=== PATIENT | male | born 1945 | race African-American/Black ===

== ENCOUNTER 2020-05-28 09:36 | Outpatient (REF) | payer MEDICARE, OTHER, SELFPAY | END 2020-05-28 09:37 | disposition home or self-care (01) | LOC: HO.BBR 09:36 | PROVIDERS: Visit Provider Internal Medicine | DX: D75.1 Secondary polycythemia (principal) | CPT/HCPCS: 36415; 85018 ==

== ENCOUNTER 2020-05-29 08:53 | Outpatient (REF) | payer MEDICARE, OTHER, SELFPAY | END 2020-05-29 08:54 | disposition home or self-care (01) | LOC: HO.BBR 08:53 | PROVIDERS: Visit Provider Internal Medicine | DX: D75.1 Secondary polycythemia (principal) | CPT/HCPCS: 85014; 85018; 99195 ==

== ENCOUNTER 2020-08-20 08:52 | Outpatient (REF) | payer MEDICARE, OTHER, SELFPAY | END 2020-08-20 08:53 | disposition home or self-care (01) | LOC: HO.BBR 08:52 | PROVIDERS: Visit Provider Internal Medicine | DX: D45 Polycythemia vera (principal) | CPT/HCPCS: 36415; 85018; 99195 ==

== ENCOUNTER 2020-11-19 08:48 | Outpatient (REF) | payer MEDICARE, OTHER, SELFPAY | END 2020-11-19 08:49 | disposition home or self-care (01) | LOC: HO.BBR 08:48 | PROVIDERS: PCP Internal Medicine; Visit Provider Internal Medicine | DX: D45 Polycythemia vera (principal) | CPT/HCPCS: 36415; 85018; 99195 ==

== ENCOUNTER 2021-02-21 11:28 | Outpatient (REF) | payer MEDICARE, OTHER, SELFPAY | END 2021-02-21 11:29 | disposition home or self-care (01) | LOC: HO.BBR 11:28 | PROVIDERS: Visit Provider Internal Medicine | DX: D45 Polycythemia vera (principal) | CPT/HCPCS: 85018; 99195 ==

== ENCOUNTER 2021-05-27 08:34 | Outpatient (REF) | payer MEDICARE, OTHER, SELFPAY | END 2021-05-27 08:35 | disposition home or self-care (01) | LOC: HO.BBR 08:34 | PROVIDERS: Visit Provider Internal Medicine | DX: D45 Polycythemia vera (principal) | CPT/HCPCS: 85014; 85018; 99195 ==

== ENCOUNTER 2021-11-25 08:45 | Outpatient (REF) | payer MEDICARE, OTHER, SELFPAY | END 2021-11-25 08:46 | disposition home or self-care (01) | LOC: HO.BBR 08:45 | PROVIDERS: Visit Provider Internal Medicine | DX: D45 Polycythemia vera (principal) | CPT/HCPCS: 85018; 99195 ==

== ENCOUNTER 2022-05-28 13:34 | Outpatient (REF) | payer MEDICARE, OTHER, SELFPAY | END 2022-05-28 13:35 | disposition home or self-care (01) | LOC: HO.BBR 13:34 | PROVIDERS: Visit Provider Internal Medicine | DX: D45 Polycythemia vera (principal) | CPT/HCPCS: 85018; 99195 ==

== ENCOUNTER 2022-09-07 08:51 | Outpatient (REF) | payer MEDICARE, OTHER, SELFPAY | END 2022-09-07 08:52 | disposition home or self-care (01) | LOC: HO.BBR 08:51 | PROVIDERS: PCP Family Medicine; Visit Provider Internal Medicine | DX: D75.1 Secondary polycythemia (principal) | CPT/HCPCS: 85018; 99195 ==

== ENCOUNTER 2022-12-08 09:43 | Outpatient (REF) | payer MEDICARE, OTHER, SELFPAY | END 2022-12-08 09:44 | disposition home or self-care (01) | LOC: HO.BBR 09:43 | PROVIDERS: Visit Provider Internal Medicine | DX: D45 Polycythemia vera (principal) | CPT/HCPCS: 85014; 85018; 99195 ==

== ENCOUNTER 2023-02-24 09:57 | Outpatient (AMB) | payer MEDICARE, OTHER, SELFPAY ==
--- NOTE | 2023-02-24 12:39 | AM.OFFWIN_ITS ---
Intake Vital Signs 02/24/23 12:48 Weight 212 lb BP 130/78 Blood Pressure Location Rt brachial Position Sitting Pulse 82 Pulse Source Pulse Oximeter Temp 100.3 F Temp Source Temporal Artery Scan Pulse Oximetry (%) 96 Intake Visit Reasons: 7EP, cough, congestion [phone] Intake Note: pt is here for c/o cough and congestion Patient Tobacco Use Status: Never used Tobacco Allergies No Known Allergies Allergy (Verified 02/24/23 12:40) Do you need a note to return to daycare/school/sports/work: Yes HPI 7EP, cough, congestion [phone] HPI Details 78 year old male patient presents today with a 6 day history of persistent dry cough, sore throat, nasal congestion, body aches, chills. Denies any known fever. Denies known exposure to sick contacts, however he was just traveling to [place] for his birthday. Denies any GI symptoms. Denies shortness of breath. [facility] Social History Patient Tobacco Use Status: Never used Tobacco Review of Systems Const All systems reviewed & are unremarkable except as noted in HPI and below Physical Exam Const General: cooperative and no acute distress HEENT Head: Yes normal to inspection Ears: hearing grossly normal bilaterally General nose exam: Normal external nose present and Nasal discharge present mucoid Face and sinus: Yes normal facial exam Mouth: Normal oral and palatal mucosa present and moist mucous membranes abnormal Throat: Yes posterior oropharynx abnormal (mild erythema) Neck Neck: Yes no lymphadenopathy Resp Effort & Inspection: normal respiratory effort and Actively coughing Quality: dry Auscultation: clear to auscultation bilaterally Cardio Jugular venous distension: no JVD Palpation: normal PMI Rate: regular rate Rhythm: regular rhythm Skin General skin exam: no rashes or lesions noted Extrem General: Yes capillary refill normal and Yes no clubbing, cyanosis or edema Psych Appearance: grossly normal Mental Status: mental status grossly normal Speech and movement: Normal speech and movement present Assessment & Plan Assessment & Plan (1) Body aches: Code(s): R52 - Pain, unspecified Plan: Symptoms consistent with viral illness. Covid/Flu/RSV swab obtained. He will be notified of results once these are available. We discussed conservative measures for his symptoms including Tylenol, rest, hydration, otc cold/flu products. He does not wish to start any Prednisone for his cough. I will start him on Benzonatate, which we reviewed indications for and use of. If he does not improve with time and conservative measures, or if he develops any worsening symptoms, he should return to the clinic for further evaluation. He verbalizes understanding and agrees to plan. (2) Cough in adult: Code(s): R05.9 - Cough, unspecified Orders: Orders SARS-CoV2/FLU/RSV Today R05.9 - Cough, unspecified, R52 - Pain, unspecified Medications: New benzonatate 100 mg PO BID 7 days PRN 14 caps 0RF cough R05.9 - Cough, unspecified Coding Level of Care Code Est Pt Level 3 (97767) Diagnoses Body aches R52 Cough in adult R05.9
[2023-02-24 12:48] VITALS: BP 130/78; PULSE 82; TEMP 37.9; O2SAT 96
== END 2023-02-24 13:28 | disposition home or self-care (01) ==
PROVIDERS: PCP Family Medicine; Visit Provider Nurse Practitioner Family
DX: R52 Pain, unspecified (principal); R05.9 Cough, unspecified
CPT/HCPCS: 99213

== ENCOUNTER 2023-02-24 13:17 | Outpatient (REF) | payer MEDICARE, OTHER, SELFPAY ==
[2023-02-24 17:43] LABS: Influenza A PCR NEGATIVE (Negative); Influenza B PCR NEGATIVE (Negative); Resp Syncy Virus RNA Qual PCR NEGATIVE (Negative); SARS COV2 PCR INHOUSE NEGATIVE (Negative)
== END 2023-02-24 13:18 | disposition home or self-care (01) ==
LOC: HO.LAB 13:17
PROVIDERS: Visit Provider Nurse Practitioner Family
DX: R52 Pain, unspecified (principal); R05.9 Cough, unspecified; Z20.822 Contact with and (suspected) exposure to COVID-19
CPT/HCPCS: 0241U

== ENCOUNTER 2023-03-10 08:30 | Outpatient (REF) | payer MEDICARE, OTHER, SELFPAY | END 2023-03-10 08:31 | disposition home or self-care (01) | LOC: HO.BBR 08:30 | PROVIDERS: PCP Family Medicine; Visit Provider Internal Medicine | DX: D75.1 Secondary polycythemia (principal) | CPT/HCPCS: 85014; 85018; 99195 ==

== ENCOUNTER 2023-06-10 08:57 | Outpatient (REF) | payer MEDICARE, OTHER, SELFPAY | END 2023-06-10 08:58 | disposition home or self-care (01) | LOC: HO.BBR 08:57 | PROVIDERS: PCP Family Medicine; Visit Provider Internal Medicine | DX: D75.1 Secondary polycythemia (principal) | CPT/HCPCS: 85018; 99195 ==

== ENCOUNTER 2023-07-19 10:02 | Outpatient (AMB) | payer MEDICARE, OTHER, SELFPAY ==
--- NOTE | 2023-07-19 11:01 | MHC.OFFWIV ---
Intake Vital Signs 07/19/23 11:03 Weight 224 lb BP 124/80 Blood Pressure Location Lt brachial Position Sitting Pulse 85 Pulse Source Pulse Oximeter Pulse Oximetry (%) 98 Oxygen Delivery Method Room Air Intake Visit Reasons: EP ?RT ear infection Intake Note: Patient here for possible right ear infection that has been present for about 2 days. Patient Tobacco Use Status: Never used Tobacco Allergies No Known Allergies Allergy (Verified 07/19/23 11:03) Do you need a note to return to daycare/school/sports/work: No HPI HPI Comments History of Present Illness Details presents to [facility] today for sick visit Complaint of right ear pain for last 2 days uses hearing aides bilaterally but does not have them in today due to the discomfort Denies new hearing loss, drainage from ear, ringing in the ear, dizziness, syncope. Patient denies sore throat, cough, fever, vomiting, diarrhea, headache. [facility] Social History Patient Tobacco Use Status: Never used Tobacco Review of Systems Const All systems reviewed & are unremarkable except as noted in HPI and below Physical Exam Vital Signs: Last Vital Signs Pulse 85 07/19/23 11:03 BP 124/80 07/19/23 11:03 Pulse Ox 98 07/19/23 11:03 Oxygen Delivery Method Room Air 07/19/23 11:03 General: awake, alert, oriented. Answers questions appropriately. Fully engaged in examination. Skin: warm, dry, intact HEENT: Normocephalic. Right TM erythematous, cloudy. Left TM normal to visual inspection. Cardiac: External chest normal in appearance. Respiratory: No cough, audible wheezing or stridor. Abdomen: without gross distension. MS: No obvious swelling or deformities. Neurological: Oriented to person, place, time and situation. Thought process intact. Psychiatric: Appropriate mood and affect. Good judgment and insight. Assessment & Plan Assessment & Plan (1) Otitis media: Code(s): H66.90 - Otitis media, unspecified, unspecified ear Plan presented to [facility] today with complaints of right ear pain Augmentin DS BID for 7 days. Drink plenty of fluids, avoid getting anything in the ear, tylenol/motrin as needed. Avoid use of hearing aid until pain resolves All questions and concerns were addressed during the visit, patient agrees with the plan. Follow up with pcp or in walkin for any new or worsening symptoms. Medications: New amoxicillin-pot clavulanate 875-125 mg 1 tab PO BID 14 tabs 0RF Coding Level of Care Code Est Pt Level 3 (19526) Diagnoses Otitis media H66.90
[2023-07-19 11:03] VITALS: BP 124/80; PULSE 85; O2SAT 98
== END 2023-07-19 12:06 | disposition home or self-care (01) ==
PROVIDERS: PCP Family Medicine; Visit Provider Registered Nurse Emergency
DX: H66.90 Otitis media, unspecified, unspecified ear (principal)
CPT/HCPCS: 99213

== ENCOUNTER 2023-12-09 08:58 | Outpatient (REF) | payer MEDICARE, OTHER, SELFPAY | END 2023-12-09 08:59 | disposition home or self-care (01) | LOC: HO.BBR 08:58 | PROVIDERS: PCP Family Medicine; Visit Provider Internal Medicine | DX: D75.1 Secondary polycythemia (principal) | CPT/HCPCS: 85018; 99195 ==

== ENCOUNTER 2024-01-01 12:41 | Outpatient (AMB) | payer MEDICARE, OTHER, SELFPAY ==
[2024-01-01 12:45] VITALS: BP 122/84; PULSE 64; O2SAT 99; BMI 34.1
--- NOTE | 2024-01-01 12:45 | AM.OFFWIN_ITS ---
Intake Vital Signs 01/01/24 12:45 Height 5 ft 8 in Weight 224 lb BMI 34.1 BP 122/84 Blood Pressure Location Rt brachial Position Sitting Pulse 64 Pulse Source Pulse Oximeter Pulse Oximetry (%) 99 Intake Visit Reasons: EP back pain Patient Tobacco Use Status: Never used Tobacco Allergies No Known Allergies Allergy (Verified 07/19/23 11:03) Do you need a note to return to daycare/school/sports/work: No HPI HPI Comments History of Present Illness Details 78-year-old male who presents for right- sided low back pain. Patient presents for a little while now now radiating down to the knee worse in the morning worse with movement loosens up over time. No fevers chills weight loss malignancy, IVDU PFSH Social History Patient Tobacco Use Status: Never used Tobacco Physical Exam Vital Signs: Last Vital Signs Pulse 64 01/01/24 12:45 BP 122/84 01/01/24 12:45 Pulse Ox 99 01/01/24 12:45 BMI result Body Mass Index 34.1 Const General: cooperative, healthy appearing, no acute distress and alert Orientation/consciousness: patient oriented x3 Limitations: no limitations HEENT Head: Yes normal to inspection Ears: hearing grossly normal bilaterally General nose exam: Normal external nose present Resp Effort & Inspection: normal respiratory effort and able to speak in complete sentences Cardio Rate: regular rate Back/Spine/Pelvis Other: No midline tenderness to palpation Skin General skin exam: no rashes or lesions noted Neuro General: patient oriented x3 Extrem General: Yes normal to inspection Assessment & Plan Assessment & Plan (1) Low Back Pain: Code(s): M54.50 - Low back pain, unspecified Qualifiers: Chronicity: acute Back pain laterality: right Sciatica presence: unspecified whether sciatica present Qualified Code(s): M54.50 - Low back pain, unspecified Plan: Suspect musculoskeletal low back pain. Will recommend Tylenol, diclofenac gel, lidocaine patches and physical the Orders: Orders PT Evaluation and Treatment Today M54.50 - Low back pain, unspecified Medications: New diclofenac sodium 1% (Arthritis Pain (diclofenac)) apply to single knee, ankle, foot; for foot includes sole/toes/top of foot 4 grams topical QID 100 grams 0RF lidocaine 5% leave on most painful area for up to 12 hrs 1 patch topical DAILY 15 ea 0RF Coding Level of Care Code Est Pt Level 3 (35091) Diagnoses Acute right-sided low back pain, unspecified whether sciatica present M54.50 Chronicity: acute Back pain laterality: right Sciatica presence: unspecified whether sciatica present
== END 2024-01-01 13:20 | disposition home or self-care (01) ==
PROVIDERS: PCP Family Medicine; Visit Provider Physician Assistant
DX: M54.50 Low back pain, unspecified (principal)
CPT/HCPCS: 99213

== ENCOUNTER 2024-06-12 09:49 | Outpatient (REF) | payer MEDICARE, OTHER, SELFPAY ==
--- OUTSIDE RECORDS SUMMARY | 2024-06-12 10:21 | XMS_ITS | Clinical Summary ---
Author Organization [facility] Address [address] [place] [address] Care Team Providers Care Warehouse Receiver Name Role Phone Astrid Reeder MD Primary Care Prov ider Allergies No known active allergies Medications Medication Sig Dispensed Refills Start Date End Date Status aspirin EC 81 MG tablet Take 1 tablet (81 mg total) by mouth daily. 0 Active Loratadine (CLARITIN PO) Take by mouth. 0 Active Multiple Vitamin (MULTI-VITAMIN DAILY PO) Take by mouth. 0 Active vitamin D3 (VITAMIN D3) 25 MCG (1000 UT) tablet Take 1 tablet (1,000 Units total) by mouth daily. 0 Active sacubitril-valsartan (ENTRESTO) 24-26 MG per tablet Take 1 tablet by mouth 2 (two) times a day. 0 Active Umeclidinium-Vilantero l (ANORO ELLIPTA) 62.5-25 MCG/INH AEPB Inhale into the lungs. 0 Active simvastatin (ZOCOR) tablet 20 mg Take 1 tablet (20 mg total) by mouth every night at bedtime. 0 Active allopurinol (ZYLOPRIM) 300 MG tablet Take 1 tablet (300 mg total) by mouth daily. 0 Active insulin glargine (LANTUS) injection 100 units/mL Inject under the skin every night at bedtime. 0 Active carvedilol (COREG) 6.25 MG tablet Take by mouth 2 (two) times a day with meals. 0 Active bumetanide (BUMEX) 0.5 MG tablet Take 1 tablet (0.5 mg total) by mouth daily. 0 Active metFORMIN (GLUCOPHAGE) tablet 500 mg Take 1 tablet (500 mg total) by mouth 2 (two) times a day with meals. 0 Active Empagliflozin (JARDIANCE) 25 MG TABS Take by mouth. 0 Active apixaban (ELIQUIS) 5 MG TABS tablet Take by mouth every 12 (twelve) hours. 0 Active Active Problems No known active problems Social History Tobacco Use Types Packs/Day Years Used Date Smoking Tobacco: Former Smokeless Tobacco: Never Alcohol Use Standard Drinks/Week Comments Yes 0 (1 standard drink = 0.6 oz pur e alcohol) occasionally Sex and Gender Information Value Date Recorded Sex Assigned at Not on file Gender Identity Not on file Sexual Orientation Not on file Job Start Date Occupation Industry Not on file Not on file Not on file Last Filed Vital Signs Vital Sign Reading Time Taken Comments Blood Pressure 128/71 08/16/2023 9:39 AM EDT Pulse 99 08/16/2023 9:39 AM EDT Temperature 36.3 ??C (97.3 ??F) 08/16/2023 9:39 AM ED T Respiratory Rate - - Oxygen Saturation 100% 08/16/2023 9:39 AM EDT Inhaled Oxygen Concentration - - Weight 100.7 kg (222 lb) 08/16/2023 9:39 AM EDT Height 172.7 cm (5' 8 ) 08/16/2023 9:39 AM EDT Body Mass Index 33.75 08/16/2023 9:39 AM EDT Plan of Treatment Health Maintenance Due Date Last Done Comments Hepatitis C Screening 1945 COVID-19 Vaccine (#1) 02[birth year]23/1950 Depression Screening 1959 Preventative Health Evaluation 1965 Fall Risk Assessment 02/23/2012 RSV Adult > 60+ Yrs or (1 - 1-dose 75+ series) 2022 Influenza Vaccine (#1) 2024 9, 01/24/2018, 03/20/2017, Additional history exists DTap / Tdap / Td (5 - Td or Tdap) 02/10/2031 02/10/2021, 02/24/2010, 02/24/2010, Additional history exists Shingrix-Zoster Vaccine Completed 04/05/2018, 01/24 Pneumococcal Vaccine Completed 02/17/2019, 03/20/2017, 01/21/2016, Additional history exists Hepatitis B Vaccines Aged Out No long er eligible based on patient's age to complete this topic RSV Ped < 20 months Aged Out No longe r eligible based on patient's age to complete this topic Care Teams Warehouse Receiver Relationship Specialty Start Date End Date Astrid Reeder MD [address] [place] [phone] PCP - General Family Medicine 10/23/21
--- OUTSIDE RECORDS SUMMARY | 2024-06-12 10:21 | XMS_ITS | Clinical Summary ---
Author Organization [address] [place] [address] [place] [phone] Phone Care Team Providers Care Certified Maintenance Welder Name Role Phone Arlene Reeder MD Primary Care Provi kamlesh Allergies No known active allergies Medications Medication Sig Dispensed Refills Start Date End Date Status allopurinoL (ZYLOPRIM) 300 mg tablet Take 1 tablet (300 mg total) by mouth daily. Active aspirin 81 mg EC tablet Take 1 tablet (81 mg total) by mouth daily. Active cholecalciferol (VITAMIN D-3) 25 mcg (1,000 unit) tablet Take 1 tablet (1,000 Units total) by mouth daily. Active insulin glargine (LANTUS) 100 unit/mL injection Inject under the skin every night at bedtime. Active metFORMIN (GLUCOPHAGE) 500 mg tablet Take 1 tablet (500 mg total) by mouth 2 (two) times a day with meals. Active simvastatin (ZOCOR) 20 mg tablet Take 1 tablet (20 mg total) by mouth every night at bedtime. Active umeclidinium-vilanter oL (ANORO ELLIPTA) 62.5-25 mcg/actuation inhaler Inhale into the lungs. Active apixaban (ELIQUIS) 5 mg tablet Take by mouth every 12 (twelve) hours. Active fluticasone-umeclidin ium-vilanterol (Trelegy Ellipta) 100-62.5-25 mcg inhaler Inhale 1 puff (100 mcg total) by mouth if needed. 10/13/2022 Active semaglutide (Ozempic) 0.25 mg or 0.5 mg(2 mg/1.5 mL) injection pen Inject 0.25 mg under the skin every 7 (seven) days. Active multivitamin (MULTIPLE VITAMINS ORAL) Take 1 tablet by mouth 1 (one) time each day. Active pen needle, diabetic 32 gauge x /32 needle Use with Insulin pens 06/27/2020 Active bumetanide (BUMEX) 1 mg tablet Take 1 tablet (1 mg total) by mouth every other day. 03/17/2021 Active carvediloL (COREG) 25 mg tablet Take 1 tablet (25 mg total) by mouth 2 (two) times a day with meals. 11/09/2023 Active sacubitriL-valsartan (Entresto) 97-103 mg per tablet Take 1 tablet by mouth 2 (two) times a day. 02/25/2023 Active empagliflozin (Jardiance) 10 mg tablet Take 1 tablet (10 mg total) by mouth 1 (one) time each day. 06/30/2021 Active spironolactone (ALDACTONE) 25 mg tablet Take 0.5 tablets (12.5 mg total) by mouth 1 (one) time each day. 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 4 at [facility] in 1996 -Pharmacologic nuclear stress test from 07/18/2014 showed a large, moderate anteroseptal wall and apical infarct without ischemia that is unchanged from 2009 - Recent hospitalization for heart failure exacerbation in February 2024 at [facility] during which time he had minimally elevated high-sensitivity troponins which were likely demand mediated and not primary event - Cardiac cath on 02/15/2024 showed severe three-vessel assiniboine and sioux disease and left main disease; ZHANG to the LAD is occluded, vein graft to the RPDA is patent, vein graft to the ramus intermedius is patent, LVEDP was upper normal to mildly increased at 15 mmHg Assessment & Plan (04/27/2024 8:26 AM EST): Continue on aspirin, beta-reuben, statin. Continue adhere to a healthy cardiac diet. Instructed to call 911 or go to the emergency room should the patient begin to experience chest pain or pressure lasting greater than 10 minutes does not resolve with rest. Assessment & Plan (03/15/2024 5:00 PM EST): Ultimately, I do not think the previous hospitalization was the result of acute plaque rupture and was unlikely to be the primary cause of CHF exacerbation given low-grade troponin anemia without acute elevation. That said, he does think the isosorbide has been helping his dyspnea on exertion symptoms. They have also been worsening his postural lightheadedness however. I suggested a trial of discontinuation-I have taken it off of his med list. I asked him to pay attention to both his dyspnea symptoms and lightheadedness symptoms going forward so we can decide if this agent is appropriate. Otherwise continue current aspirin, simvastatin. Ventricular tachycardia 03/15/2024 Assessment & Plan (03/15/2024 4:57 PM EST): Has had a steady intermittent burden of nonsustained VT but never any tachycardia therapies. As such, we have held off on amiodarone use. This may be a possibility in the future if he does start having tachycardia therapies. Aortic ectasia 12/23/2023 Overview (02/23/2024): -See echo under HFrEF section -CT of the chest on 11/14/2019 showed the ascending aorta 3.9 cm at the level of the main PA COVID-19 06/03/2021 Overview (02/23/2024): Positive at an center- 06/06/21 Class 2 severe obesity due t o excess calories with serious comorbidity and body mass index (BMI) of 37.0 to 37.9 in adult 05/06/2017 Chronic atrial fibrillation 01/18/2017 Overview (03/15/2024): On Eliquis for anticoagulation Rate controlled Assessment & Plan (04/27/2024 8:26 AM EST): Patient on beta-reuben, anticoagulated with Eliquis. Patient has a [id number] score of 6 he should remain anticoagulated. Of note the patient is scheduled to see ENT in the near future for cauterization of nosebleeds. Assessment & Plan (03/15/2024 4:56 PM EST): Continue current Eliquis for CVA prophylaxis and carvedilol for rate control. DM (diabetes mellitus), type 2 with peripheral vascular complications 11/09/2016 AICD (automatic cardioverter/defibrillator) pres ent 11/05/2016 Overview (04/27/2024): -[employer] device-generator change in October 2017 Assessment & Plan (04/27/2024 8:26 AM EST): Most recent device interrogation did not should deliver any shocks. Assessment & Plan (03/15/2024 4:55 PM EST): Continue device clinic follow-up. Unfortunately, his device does not have remote tracking of thoracic impedance as it predated thoracic impedance monitoring on [employer] devices. Adenomatous colon polyp 11/04/2016 Overview (02/23/2024): 06/2011; 5 yr f/u Arthritis 11/04/2016 Carpal tunnel syndrome 11/04/2016 Chronic liver disease 11/04/2016 Erectile dysfunction 11/04/2016 Gout 11/04/2016 Hemorrhoids 11/04/2016 Hypercholesterolemia 11/04/2016 Chronic HFrEF (heart failure with reduced ejection fraction) 09/03/2016 Overview (03/15/2024): - Longstanding diagnosis made over 20 years ago suddenly without recovery of ejection fraction after a major anterior LA with persistent infarction by nuclear imaging even after revascularization -Status post AICD placement with a [employer] device for primary prevention -Most recently with NYHA class III heart failure symptoms as of 2023 - See most recent cardiac cath in CAD section - Hospitalized in February 2024 with what looks to be a CHF exacerbation-there was comment about him having a NSTEMI and chest pain however in review of the modestly elevated troponin T's that have plateaued, Dr Hillman suspects this was demand mediated and not a true ischemic event-that being said, there was no clear inciting incident other than progression of HFrEF with time that could be elucidated as to the cause-the patient has been on GDMT all along, with the exception of spironolactone which was discontinued previously due to AMANDA and hyperkalemia; after this hospitalization, he was resumed on a half dose of spironolactone in addition to max dose carvedilol, max dose ARNI, and SGLT2 inhibitor -Echocardiogram in 2022 had shown improvement in EF slightly with GDMT to 40 to 45% from a previous of 30 to 35% - However his echo was repeated during his [facility] hospitalization on 02/11/2024 and showed reduction in EF to 20 to 25% with a severely dilated ventricle, severe, segmental LV systolic dysfunction with more pronounced anterior and anteroseptal wall motion abnormalities, EF down to 20 to 25%, only trace mitral regurgitation, mild AI, mildly dilated aortic root and ascending aorta at 4 and 4.1 cm, mildly dilated right ventricle with moderately reduced systolic function, pacer wire seen in the right heart, dilated and noncompressible IVC consistent with high right atrial pressure, no thrombus in the LV cavity-compared to echo report from 10/27/2022 his LV cavity was further dilated (end-diastolic volume on the 2022 echo was 6 cm and 6.9 cm on the most recent echo) and EF appeared to have dropped significantly from the 40 to 45% range to 20 to 25% range Assessment & Plan (04/27/2024 8:26 AM EST): Patient scheduled to visit the advanced heart failure clinic on May 15/2024. He has been asked to check his weights daily. He is currently utilizing GDMT, beta-reuben, spironolactone, Entresto, SGLT2. I am having his carvedilol dosage today due to hypotension particularly in the morning. Patient has been educated to limit his sodium intake. Reach out to the office if he gains more than 2-1/2 pounds in 1 day or 5 pounds in a week. Assessment & Plan (03/15/2024 2:19 PM EST): At this point, he seems to have achieved a steady state and is actually still on the dry side having misunderstood or forgotten the previous instructions to only take Bumex every other day. This may explain his acute kidney injury most recently with worsening of creatinine from 1.3 at baseline to now 1.64. He is going to repeat his labs next week with increased oral hydration and making sure to cut back on his Bumex dosing. He is euvolemic today with stable weights. He mentions as he is leaving that he is going to [place] to visit family. I asked him to be very cautious about his sodium intake and weigh himself every day while in [place]. I still believe he is quite tenuous and he is still awaiting callback from advanced heart failure treatment and transplant at [facility]. Continue current Entresto, carvedilol, Jardiance. I hesitate to increase spironolactone to the full dose because of high normal potassium on most recent basic metabolic panel. COPD (chronic obstructive pulmonary disease) Intra-abdominal varices Hypertension Assessment & Plan (04/27/2024 8:26 AM EST): Patient is actually slightly hypotensive at the appointment today. Did offer complaint of occasional dizziness in the morning after he changes positions. I am going to have his carvedilol dosage to 12.5 mg twice daily. I also want him to start taking his blood pressure measurements every day record them and get back to the office in 1 week with his values. If patient continues to be hypotensive we can look to reduce his Entresto. Resolved Problems Problem Noted Date Diagnosed Date Resolved Date Ischemic cardiomyopathy 10/2023 Encounters Date Type Department Care Team Description 04/27/2024 7:40 AM EST Office Visit [facility] Cardiology [facility] [address] [place] [address] Eugene Schumacher NP Chronic HFrEF (heart failure with reduced ejection fraction) (CMS/HCC) (Primary Dx); Coronary artery disease involving coronary bypass graft of assiniboine and sioux heart with angina pectoris (CMS/HCC); Chronic atrial fibrillation (CMS/HCC); AICD (automatic cardioverter/defibri llator) present; Hypertension, unspecified type; Ventricular tachycardia (CMS/HCC) 04/25/2024 10:05 AM EST Ancillary Procedure [facility] Cardiology [facility] [address] [place] [address] 03/27/2024 Telephone [facility] Cardiology [facility] [address] [place] [address] Cecy Hillman MD Lab Results (Lab results and referral to CHF clinic) 03/24/2024 Telephone [facility] Cardiology [facility] [address] [place] [address] Cecy Hillman MD lab work 03/17/2024 Telephone [facility] Cardiology [facility] [address] [place] [address] Lesley Hammonds NP Referral (Cardiology referral/) 03/15/2024 9:20 AM EST Office Visit [facility] Cardiology [facility] [address] [place] [address] Cecy Hillman MD Chronic HFrEF (heart failure with reduced ejection fraction) (CMS/HCC) (Primary Dx); Coronary artery disease involving coronary bypass graft of assiniboine and sioux heart with angina pectoris (CMS/HCC); AICD (automatic cardioverter/defibri llator) present; Chronic atrial fibrillation (CMS/HCC); Ventricular tachycardia (CMS/HCC) from Last 3 Months Immunizations Name Administration Dates Next Due Diptheria & Tetanus, 6wks to less than 7yo 02/24/2010,04/22/2004 Influenza trivalent, 0.5mL ( Fluad) 65yo and older 02/17/2019,01/24/2018,03/20/2017,01/20 Influenza trivalent, 0.5mL, preservative free (Fluarix; FluLaval; Fluzone) ages 6mo and older (Afluria) 3 years and older 01/13/2020 Influenza, Unspecified 03/20/2017 Moderna SARS-CoV-2 COVID-19, mRNA, LNP-S, preservative free 03/04/2021,08/16/2020,07/19/2020 Pneumococcal conjugate 13 va lent (Prevnar 13, PCV13) 2mo and older 02/17/2019,03/20/2017,01/21/2016 Pneumococcal polysaccharide 23 valent (Pneumovax 23) 2yo and older 08/09/2012,10/11/2001 Td Tetanus diptheria (Tdvax) 7yo and older 02/10/2021,02/24/2010,04/22/2004,05/10 Tdap Tetanus diptheria acell ular pertussis (Boostrix; Adacel) 7yo and older 02/24/2010 Zoster Live 01/23/2014,07/21/2010 Zoster recombinant (Shingrix ) 19yo and older 04/05/2018,01/24/2018 Surgical History Surgery Date Site/Laterality Comments CORONARY ARTERY BYPASS GRAFT PROCEDURE: HISTORICAL CABG; COMMENT: x 4 1996 APPENDECTOMY 06/2016 PROCEDURE: HISTORICAL APPENDECTOMY; COMMENT: appendix had perforated, also had cecetomy OTHER SURGICAL HISTORY 2001 PROCEDURE: AICD, SINGLE CHAMBER COLONOSCOPY 06/19/2011 PROCEDURE: HISTORICAL COLONOSCOPY; COMMENT: 6mm sessile polyp- transverse colon: adenoma; repeqt in 5 yrs under propfol COLONOSCOPY 12/29/2016 PROCEDURE: HISTORICAL COLONOSCOPY; COMMENT: tubular adenoma and tics; repeat in 5 yrs under propofol UPPER GASTROINTESTINAL ENDOSCOPY 12/29/2016 PROCEDURE: UPPER GI ENDOSCOPY/EXAM; COMMENT: NO varices Medical History Medical History Date Comments COPD (chronic obstructive pu lmonary disease) ([facility]) 09/03/2016 DX:COPD (chronic obstructive pulmonary disease) ([facility]) Hypertension 11/04/2016 DX:Hypertension CAD (coronary artery disease) 11/04/2016 DX :CAD (coronary artery disease) Hypercholesterolemia 11/04/2016 DX:Hypercho lesterolemia Edema 09/03/2016 DX:Edema Arthritis 11/04/2016 DX:Arthritis Carpal tunnel syndrome 11/04/2016 DX:Carpal tunnel syndrome Gout 11/04/2016 DX:Gout DM (diabetes mellitus), type 2 with neurological complications ([facility]) 11/04/2016 DX:DM (diabetes m ellitus), type 2 with neurological complications ([facility]) Erectile dysfunction 11/04/2016 DX:Erectile dysfunction Peptic ulcer disease 11/04/2016 DX:Peptic u lcer disease; COMMENT: S/p h. pylori treatment Microalbuminuria 11/04/2016 DX:Microalbumin uria DM (diabetes mellitus), type 2 with renal complications (CMS/HCC) 11/04/2016 DX:DM (diabetes mellitus ), type 2 with renal complications (HCC) Chronic liver disease 11/04/2016 DX:Chronic liver disease Chronic atrial fibrillation (CMS/HCC) 09/03/2016 DX:Chronic atrial fibrillation (HCC); COMMENT: Chronic anticoagulation Intra-abdominal varices 09/03/2016 DX:Intra -abdominal varices Pancreatic cyst 09/03/2016 DX:Pancreatic cy st Chronic congestive heart torsten lure (CMS/HCC) 09/03/2016 DX:Chronic congestive heart failure (HCC); COMMENT: EF 45-50% was 35% in 2009 Adenomatous colon polyp 11/04/2016 DX:Adeno matous colon polyp; COMMENT: 06/2011 Meralgia paresthetica, left lower limb 11/04/2016 DX:Meralgia paresthetica, left lower limb Cardiomyopathy (CMS/HCC) 11/04/2016 DX:Card iomyopathy (HCC); COMMENT: LVEF 35 %, 05/20/16 Hemorrhoids 11/04/2016 DX:Hemorrhoids AICD (automatic cardioverter/defibrillator) present 11/05/2016 DX:AICD (automatic cardioverter/defibrillator) present DM (diabetes mellitus), type 2 with peripheral vascular complications (CMS/HCC) 11/09/2016 DX:DM (diabetes mellitus), t ype 2 with peripheral vascular complications (HCC) Old LA (myocardial infarction) 11/09/2016 D X:Old LA (myocardial infarction) DARYA on CPAP 11/04/2016 DX:DARYA on CPAP Erythrocytosis 08/09/2017 DX:Erythrocytosi s Family History Medical History Relation Name Comments Other: Other Brother in infancy Heart disease Father Other: Heart Disease Father age 67 Rheum arthritis Mother age 67 No Known Problems Sister No Known Problems Son 1 No Known Problems Son 2 Relation Name Status Comments Brother Father Mother Sister Alive Son 1 Alive Son 2 Alive Social History Tobacco Use Types Packs/Day Years Used Date Smoking Tobacco: Former Cigarettes 1 11 0 05/25/1960 - 05/10/1971 Smokeless Tobacco: Never Tobacco Cessation:Counseling Given: Not Answered Alcohol Use Standard Drinks/Week Comments Yes 0 (1 standard drink = 0.6 oz pur e alcohol) Sex and Gender Information Value Date Recorded Sex Assigned at Male 03/15/2024 11:55 AM EST Gender Identity Male 03/15/2024 11:55 AM EST Sexual Orientation Straight 03/15/2024 11 :55 AM EST Job Start Date Occupation Industry Not on file Not on file Not on file Obstetrics History Last Filed Vital Signs Vital Sign Reading Time Taken Comments Blood Pressure 84/50 04/27/2024 7:43 AM EST Pulse 81 04/27/2024 7:43 AM EST Temperature - - Respiratory Rate - - Oxygen Saturation 97% 04/27/2024 7:43 AM EST Inhaled Oxygen Concentration - - Weight 97.7 kg (215 lb 6.4 oz) 04/27/2024 7:43 A M EST Height 172.7 cm (5' 8 ) 04/27/2024 7:43 AM EST Body Mass Index 32.75 04/27/2024 7:43 AM EST Plan of Treatment Upcoming Encounters Date Type Department Care Team (Late st Contact Info) Description 07/24/2024 9:30 AM EDT Office Visit [facility] Hematology Oncology [address] [place] [address] Cindy Moore MD [address] [place] [address] 07/26/2024 8:40 AM EDT Office Visit [facility] Cardiology [facility] [address] [phone] Eugene Schumacher NP [address] [place] [address] 01/16/2025 1:30 PM EDT Ancillary Procedure [facility] Cardiology [facility] [address] [phone] Health Maintenance Due Date Last Done Comments Diabetes: Annual Foot Exam 1955 Diabetes: Annual Retina Eye Exam 1955 Depression Screening 04/18/2022 Falls Risk Assessment 04/18/2022 Social Influencers of Health Screening 04/18/2022 Diabetes: Blood Sugar Control Test (HGBA1C) 09/10/2022 03/13/2022 Diabetes: Annual Urine Albumin-Creatinine Ratio (uACR) 03/13/2023 03/13/2022 Medicare Annual Wellness Visit 09/29/2023 09/28/2022 Diabetes: Annual GFR (Glomerular Filtration Rate) 03/24/2025 03/24/2024, 03/07/2024, 02/28/2024, Additional history exists Hypertension/CHF/CAD Annual BMP Blood Test 03/24/2025 03/24/2024, 03/07/2024, 02/28/2024, Additional history exists Colorectal Cancer Screening: Colonoscopy 12/29/2026 12/29/2016 Cholesterol Screening (Lipid Panel) 03/13/2027 03/13/2022 DTaP,Tdap,and Td Vaccines (8 - Td or Tdap) 02/10/2031 02/10/2021, 02/10/2021, 02/24/2010, Additional history exists Hepatitis C Screening Completed 09/04/2016 Zoster Vaccines Completed 04/05/2018, 01/08, 01/23/2014, Additional history exists Pneumococcal Vaccine: 65+ Years Completed 02/17/2019, 03/20/2017, 01/21/2016, Additional history exists RSV Immunization Patients 60+ Years Old Completed 01/08/2023 Influenza Vaccine Completed 01/18/2024, , 02/06/2022, Additional history exists COVID-19 Vaccine Completed 01/23/2024, 02/2024, 04/20/2023, Additional history exists HIB Vaccines Aged Out No longer eligi ble based on patient's age to complete this topic HPV Vaccines Aged Out No longer eligi ble based on patient's age to complete this topic Hepatitis A Vaccines Aged Out No long er eligible based on patient's age to complete this topic Hepatitis B Vaccines Aged Out No long er eligible based on patient's age to complete this topic IPV Vaccines Aged Out No longer eligi ble based on patient's age to complete this topic MMR Vaccines Aged Out No longer eligi ble based on patient's age to complete this topic Meningococcal ACWY Vaccine Aged Out N o longer eligible based on patient's age to complete this topic RSV Immunization Patients Under 20 months Aged Out No longer eligible based on patient's age to complete this topic Varicella Vaccines Aged Out No longer eligible based on patient's age to complete this topic Medical Devices Implanted Type Area Investment Banker Device Identifier Shelf Expiration Date Model / Serial / Lot [facility] [id number] Implanted:10/08 (Quantity not on file) Cardiac ICD [employer] MGMT [id number] / [id number] / Procedures Procedure Name Priority Date/Time Associated Diagnosis Comments CARDIAC DEVICE CHECK- REMOTE- MURJ Routine 04/25/2024 10:00 AM EST BASIC METABOLIC PANEL Routine 03/24/2024 12:46 PM EST Chronic HFrEF (heart failure with reduced ejection fraction) (CMS/HCC) HM URINE ALBUMIN CREATININE RATIO Routine 03/13/2022 HEMOGLOBIN A1C Routine 03/13/2022 LIPID PANEL Routine 03/13/2022 HM COLONOSCOPY Routine 12/29/2016 HM HEPATITIS C SCREENING Routine 09/04/2016 from Last 3 Months or Most Recently Relevant to Health Maintenance Results * Cardiac device check - Remote- MURJ (04/25/2024 10:00 AM EST) Date Time Interrogation Session [id number] CV DEVICE CHECK Type Interrogation Session Remote Scheduled CV DEVICE CHECK Implantable Pulse Generator [employer] BSX CV DEVICE CHECK Implantable Pulse Generator Type ICD CV DEVICE CHECK Implantable Pulse Generator Model D151 CV DEVICE CHECK Implantable Pulse Generator Serial Number [id number] CV DEVICE CHECK Implantable Pulse Generator Implant Date [id number] CV DEVICE CHECK Battery Remaining Percentage 100.00 CV DEVICE CHECK Battery Remaining Longevity 126.0 CV DEVICE CHECK Battery Status Beginning of Service CV DEVICE CHECK Capacitor Charge Time 10.900 CV DEVICE CHECK Suraj Statistic RV Percent Paced 2.00 CV DEVICE CHECK Lead Channel Sensing Intrinsic Amplitude 8.000 CV DEVICE CHECK Lead Channel Setting Sensing Sensitivity 0.60 CV DEVICE CHECK Lead Channel Impedance Value 452 CV DEVICE CHECK Lead Channel Setting Pacing Amplitude 2.600 CV DEVICE CHECK Lead Channel Setting Pacing Pulse Width 0.4 CV DEVICE CHECK Suraj Setting Mode (NBG Code) VVI CV DEVICE CHECK Suraj Setting Lower Rate Limit 40 CV DEVICE CHECK Therapy Statistic Recent Shocks Delivered 0 CV DEVICE CHECK Therapy Statistic Recent Shocks Aborted 0 CV DEVICE CHECK Therapy Statistic Recent ATP Delivered 0 CV DEVICE CHECK Shock Measured Impedance 59 CV DEVICE CHECK Zone Setting Type Category VF CV DEVICE CHECK Rate 210 CV DEVICE CHECK Therapies Burst,41J,41J,41J x 6 CV DEVICE CHECK Zone Setting Status On CV DEVICE CHECK Zone ID 1 CV DEVICE CHECK Zone Setting Type Category VT CV DEVICE CHECK Rate 175 CV DEVICE CHECK Therapies 3 x Burst,41J,41J,41J x 4 CV DEVICE CHECK Zone Setting Status On CV DEVICE CHECK Zone ID 2 CV DEVICE CHECK Zone Setting Type Category VT CV DEVICE CHECK Rate 150 CV DEVICE CHECK Zone Setting Status Monitor CV DEVICE CHECK Zone ID 3 CV DEVICE CHECK Date of Service 2024-06-02 CV DEVICE CHECK Anatomical Region Laterality Modality Device Interroga tion 04/19/2024 2:31 AM EST Impressions 04/25/2024 9:52 AM EST Normal Remote: No Events * Normal Device Function * Alerts or events: None * Battery: Battery is at 100%, 10.50 yrs * Sensing, impedance and thresholds reviewed * Programmed parameters reviewed * Presenting rhythm reviewed * Heart Rate Histograms reviewed * No significant changes noted Narrative Procedure Note Eliseo Cortez MD - 04/25/2024 IMPRESSION: Normal Remote: No Events * Normal Device Function * Alerts or events: None * Battery: Battery is at 100%, 10.50 yrs * Sensing, impedance and thresholds reviewed * Programmed parameters reviewed * Presenting rhythm reviewed * Heart Rate Histograms reviewed * No significant changes noted Eliseo Cortez MD CV IMPLANTABLE CARDI AC DEVICE PROCEDURES * (ABNORMAL) Basic metabolic panel (03/24/2024 12:46 PM EST) Sodium 138 133 - 145 mmol/L LAB CHEMISTRY METHOD 03/24/2024 6:59 PM EST [facility] Potassium 4.8 3.5 - 5.5 mmol/L LAB CHEMISTRY METHOD 03/24/2024 6:59 PM EST [facility] Chloride 104 96 - 110 mmol/L LAB CHEMISTRY METHOD 03/24/2024 6:59 PM EST [facility] CO2 27 21 - 32 mmol/L LAB CHEMISTRY METHOD 03/24/2024 6:59 PM [facility] Anion Gap 7 3 - 11 LAB CHEMISTRY METHOD 03/24/2024 6:59 PM [facility] Glucose 97 70 - 100 mg/dL LAB CHEMISTRY METHOD 03/24/2024 6:59 PM [facility] BUN 24 5 - 25 mg/dL LAB CHEMISTRY METHOD 03/24/2024 6:59 PM [facility] Creatinine 1.34(H) 0.70 - 1.30 mg/dL LAB CHEMISTRY METHOD 03/24/2024 6:59 PM [facility] eGFR 55(L) >=60 mL/min/1. 73m2 LAB CHEMISTRY METHOD 03/24/2024 6:59 PM [facility] Comment:Calculation based on the??Chronic Kidney Disease Epidemiology Collaboration (CKD-EPI) equation refit??without adjustment for race. BUN/Creatinine Ratio 17.9 LAB CHEMISTRY METHOD 03/24/2024 6:59 PM [facility] Calcium 9.9 8.5 - 10.5 mg/dL LAB CHEMISTRY METHOD 03/24/2024 6:59 PM [facility] Blood Venous blood specimen / Unknown Venipuncture / Unknown 03/24/2024 12:46 PM EST 03/24/2024 12:46 PM EST Lesley Hammonds NP LAB BLOOD LEIGH [facility] [address] [place] [address], * Urine Albumin Creatinine Ratio (03/13/2022) Urine Albumin Creatinine Ratio abstracted Historical Provider MD NEFTALY Menjivar * (ABNORMAL) Hemoglobin A1c (03/13/2022) Hemoglobin A1C 6.8(A) 6.5 % Blood Venous blood specimen / Unknown Historical Provider LAB BLOOD ORDERAB LES * Lipid panel (03/13/2022) Pathologist [facility] LDL/HDL Ratio 3 0 - 4 Triglycerides 81 0 - 150 mg/dL Cholesterol 118 0 - 200 mg/dL HDL 44 40 mg/dL LDL Cholesterol 58 0 - 100 mg/dL Blood Venous blood specimen / Unknown Historical Provider LAB BLOOD ORDERAB LES * Hm Colonoscopy (12/29/2016) Pathologist [facility] Colonoscopy no interpretation , abstracted Anatomical Region Laterality Modality Other Historical Provider HEALTH MAINTENANC E * Hepatitis C Screening (09/04/2016) Pathologist [facility] Hepatitis C Screening abstracted Historical Provider MD HIGGINBOTH[place] MAINTENANC E from Last 3 Months or Most Recently Relevant to Health Maintenance Care Teams Certified Maintenance Welder Relationship Specialty Start Date End Date Arlene Reeder MD [address] [place], [place] PCP - General Internal Medicine 10/09/21
== END 2024-06-12 09:50 | disposition home or self-care (01) ==
LOC: HO.BBR 09:49
PROVIDERS: PCP Family Medicine; Visit Provider Internal Medicine
DX: D75.1 Secondary polycythemia (principal)
CPT/HCPCS: 85018

== ENCOUNTER → 2024-06-15 08:52 | Outpatient (REF) | payer MEDICARE, OTHER, SELFPAY ==
--- OUTSIDE RECORDS SUMMARY | 2024-06-15 09:09 | XMS_ITS | Data Portability ---
Author Organization [place] - [facility], Allergy Address [address] [address] Care Team Providers Care Suspect Artist Supervisor Name Role Phone PADMAJA SMITH Primary Care Provide r Assessment Encounter Date Assessment Date Assessment LastModified by Organization Details LastModified Time 05/11/2024 05/11/2024 79-year-old with history of recurrent left epistaxis and CHF on Eliquis and Aspirin presents for evaluation of left epistaxis. Nasal examination today identified a prominent bleeding source on the anterior left septum. This site was cauterized with silver nitrate. Basic epistaxis precautions were discussed including avoidance of nose blowing, nose picking, straining, bending forward, exertion, heavy lifting, steamy showers, and sneezing with the mouth open for two weeks. Recommend local wound care with saline nasal spray 4-6 times daily, K-Y jelly at night, Afrin with episodes of bleeding and packing the nose with Bleed Cease (available OTC) if any additional bleeding. Return to office in 2-3 weeks for follow up or emergency room with severe episodes. [email or web address] Not available 05/11/2024 12:23:05 05/26/2024 05/26/2024 79-year-old with history of recurrent left epistaxis and CHF on Eliquis and Aspirin presents for reevaluation of left epistaxis. He denies epistaxis since nasal cautery two weeks ago. Nasal examination today did not identify a prominent bleeding source. If epistaxis recurs, recommend saline nasal spray 3 times daily, K-Y jelly at night, Afrin with episodes of bleeding and packing the nose with Bleed Cease (available OTC) if any additional bleeding. May use Ponaris Nasal Emollient 1/2 dropper twice daily as needed with dryness. Patient will return to office as needed. [email or web address] Not available 05/26/2024 09:24:17 Plan of Treatment Reminders Order Date Submit Date Provider Last Modified By Organization Details Last Modified Time Details Appointments None record ed. Lab None record ed. Referral None record ed. Procedures None record ed. Surgeries None record ed. Imaging None record ed. Medication Orders None record ed. Patient TargetsNo targets recorded. Patient InstructionsNo instructions recorded. Reason for Referral None Reported. 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 600333994 Active 2022 Coagulati on defects: Other hemorrhag ic disorder due to intrinsic circulati ng anticoagu lants, antibodie s, or inhibitor s; Note: Date Diagnosed : 02/13/2015 8:41 AM () Not Available [facility] 4 02:17:48 Epistaxis Active 2022 Epistaxis ; Note: Date Diagnosed : 02/13/2015 8:41 AM () Not Available [facility] 4 02:17:55 Long-term current use of antiplate let drug 22669245258 4101 Active 2022 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 Procedures Surgical History Date Name Laterality Status Provider Name and Address Organization Details Recorded Time 5 Epistaxis Simple Nasal Cautery Left completed NALINI WILSON PA-C [address] [facility] [address], [place], [address], [facility] - [facility] 05/11/2024 09:53:00 extraction of wisdom tooth completed Gloria Mello [facility] 05/11/2024 08:48:25 Imaging Results None recorded. Procedure Notes None recorded. Medical Equipment None Reported. Allergies No known drug allergies Medications Name Sig Start Date Stop Date Status Note LastModified by Organization Details LastModified Time metformin 500 mg tablet active Not Available Not Available Not Available carvedilo l 25 mg tablet active Not Available Not Available Not Available acetamino phen 300 mg-codein e 30 mg tablet TAKE 1 TABLET BY MOUTH THREE TIMES DAILY FOR 7 DAYS NEEDED FOR ACUTE BACK PAIN 05/11 completed Not Available Not Available Not Available spironola ctone 25 mg tablet TAKE 1/2 (HALF) TABLET BY MOUTH EVERY DAY active Not Available Not Available No t Available simvastat in 20 mg tablet active Not Available Not Available Not Available glimepiri de 4 mg tablet 05/11 completed Medicati on ID: [id number] D uration Value: 90 Brand Name: glimepir isatu Send Method: E-Prescr ibed Sub s Allowed: subs OK Medic ationGen ericName : glimepir isatu Not Available Not Available Not Available lidocaine 5 % topical patch APPLY 1 PATCH TOPICALL Y DAILY ON MOST PAINFUL AREA LEAVE ON 12 HOURS AND OFF 12 HOURS 05/23 completed Not Available Not Available Not Available bumetanid e 1 mg tablet active Not Available Not Available Not Available allopurin ol 300 mg tablet active Not Available Not Available Not Available isosorbid e dinitrate 5 mg tablet TAKE 1 TABLET BY MOUTH TWICE DAILY 05/23 completed Not Available Not Available Not Available amoxicill in 875 mg-potass ium clavulana te 125 mg tablet TAKE 1 TABLET BY MOUTH TWICE DAILY 01/02 /2025 completed Not Available Not Available Not Available neomycin- polymyxin -hydrocor t 3.5 mg-10,000 unit/mL-1 % ear drops,garrett p SHAKE LIQUID AND INSTILL 4 DROPS TO AFFECTED EAR THREE TIMES DAILY 05/11 completed Not Available Not Available Not Available Lantus Solostar U-100 Insulin 100 unit/mL (3 mL) subcutane ous pen active Not Available Not Available Not Available diclofena c 1 % topical gel 05/11 completed Not Available Not Available Not Available Eliquis 5 mg tablet active Not Available Not Available No t Available Sure Comfort Pen Needle 32 gauge x 05/11 completed Not Available Not Available Not Available Jardiance 10 mg tablet active Not Available Not Available Not Available Entresto 97 mg-103 mg tablet active Not Available Not Available No t Available Entresto 49 mg-51 mg tablet 05/11 completed Medicati on ID: [id number] B rand Name: Entresto Send Method: E-Prescr ibed Sub s Allowed: subs OK Medic ationGen ericName : Entresto Not Available Not Available Not Available Trelegy Ellipta 100 mcg-62.5 mcg-25 mcg powder for inhalatio n active Not Available Not Available Not Available Ozempic 1 mg/dose (4 mg/3 mL) subcutane ous pen injector active Not Available Not Available Not Available Ozempic 0.25 mg or 0.5 mg (2 mg/3 mL) subcutane ous pen injector active Not Available Not Available Not Available Vitals Date Recorded Body height Body mass index (BMI) Body weight Provider Name and Address Organization Details Last Updated DateTime 05/26/2024 175.26 cm 30.9 kg/m2 47666.81 g Prachi Villalobos [place] - [facility] 05/26/2024 09:09:21 Social History None recorded. Functional Status None recorded. Mental Status None recorded. Family History Nothing Reported. Medical History Condition Response Allergies/Hayfever N Heart Problems Y Anxiety N Tonsil Infections N Emphysema N Migraines N Thyroid Problems N Glaucoma Y Depression N COPD Y Developmental Delay N Nasal or Sinus Problems N Anemia N Immune System Disorder N Anesthesia Complications N Heart Attack ([place]) Y Other Skin Condition N Diabetes Y Rhinitis N Bleeding Disorder N Food Allergy N Arthritis Y Hearing Loss Y Hyperlipidemia N Cancer N Stroke N Dementia N Nasal polyps N Asthma N Sleep Disorder Y GERD/Reflux N High Cholesterol Y Liver Disease N Headaches N Fibromyalgia N Hypertension Y Speech Delay N Kidney Disease N Past Encounters Encounter ID Performer Location Encounter Start Date Encounter Closed Date Diagnosis/Indication Diagnosis SNOMED-CT Code Diagnosis ICD10 Code Diagnosis Note [id number] KERRI ARAUZ MD [facility] [address] [address] 05/11/2024 08:46:34 05/11/2024 09:48:01 Bleeding from nose 361736591 R04.0 recurrent left anterior epistaxis Long-term current use of anticoagulant 176167359 Z79.01 Long-term current use of antiplatelet drug 9679129549 78073 Z79.02 [id number] KERRI ARAUZ MD [facility] [address] [address] 05/26/2024 09:00:48 05/26/2024 09:16:44 Long-term current use of anticoagulant 793770270 Z79.01 Long-term current use of antiplatelet drug 7806421628 50418 Z79.02 Anterior epistaxis 22419 4002 R04.0 left, resolved Health Concerns Section Related Observation LastModified by Organization Detai ls LastModified Time None Recorded Concern Status LastModified by Organization Details LastModified Time None Recorded Advance Directives Directive None Recorded Payers Encounter Date Sequence Insurance Name Policy Number Policy Kim Covered Member ID Kim Member ID Guarantor Name 05/11/2024 2 FOR LIFE () Dom Mosqueda Kori [id number] Dom Jaylin Kori 05/11/2024 1 [place]: [employer] Dom Sheikh [id number] Dom Jaylin Kori 05/26/2024 1 [place] [employer] Dom Sheikh [id number] Dom Mosqueda Kori Notes Date Note Type Note Provider Name and Address Organization Details Recorded Time 05/11/2024 text/html 79-year-old male with DARYA and CHF presents for evaluation of recurrent left epistaxis. He is currently on Eliquis and 81 mg of aspirin. He reports 4 weeks of daily left anterior epistaxis. He required nasal packing years ago. Nasal cautery performed 1 year ago was helpful for one year. Reports mild runny nose. He avoids nose blowing and digital manipulation. He uses nasal Vaseline once daily. History of well-controlled hypertension. No family hx of bleeding disorder. He is currently recovering from acute URI. KERRI ARAUZ MD [address] [place] [address], [phone], [facility] - [facility] [place] 05/11/2024 17:40:37 05/26/2024 text/html 79-year-old with history of recurrent left epistaxis and CHF on Eliquis and Aspirin presents for reevaluation of left epistaxis. He denies epistaxis since cautery two weeks ago. He has been recovering from a common cold and endorses frequent nose blowing. He has been using daily nasal saline. KERRI ARAUZ MD [address] [place] [address], [place], [address], [facility] [place] 05/30/2024 08:02:55
--- OUTSIDE RECORDS SUMMARY | 2024-06-15 09:09 | XMS_ITS | Continuity of Care Document ---
Author Organization [place] - [facility], [facility] Address [address] [place] [address] Care Team Providers Care Media/Instructional Designer Name Role Phone PADMAJA SMITH Primary Care Provide r Assessment Encounter Date Assessment Date Assessment LastModified by Organization Details LastModified Time 05/26/2024 05/26/2024 79-year-old with history of recurrent [...] Organization Details Recorded Time Bleeding from nose 690962857 Active 2022 Epistaxis ; Note: Date Diagnosed : 05/14/2022 12:05 PM (R04.0) Not Available [facility] 08/02/202 4 02:18:09 Long-term current use of anticoagu lant 774981647 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; Note: Date Diagnosed : 02/13/2015 8:40 AM (Z79.01) Not Available [facility] 4 02:17:45 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02) Not Available [facility] 4 02:17:51 Anterior epistaxis 009853515 Active 2024 NALINI WILSON PA-C [address] [place] [address], [address] , [place] - [facility] 5 21:00:16 Problem Notes None recorded. Procedures Surgical History Date Name Laterality Status Provider Name and Address Organization Details Recorded Time 5 Epistaxis Simple Nasal Cautery Left completed NALINI WILSON PA-C [address] [place] [address],[address], [address], [place] - [facility] 05/11/2024 09:53:00 extraction of wisdom tooth completed Gloria Mello [place] - [facility] 05/11/2024 08:48:25 Imaging Results None recorded. [...] mg tablet 05/11 completed Medicati on ID: [id number] D uration Value: 90 Brand Name: glimepir [...] TAKE 1 TABLET BY MOUTH TWICE DAILY 05/11 completed Not Available Not Available [...] Sure Comfort Pen Needle 32 gauge x 5/32 05/11 completed Not Available Not Available Not Available Jardiance 10 mg tablet active Not Available Not Available Not Available Entresto 97 mg-103 mg tablet active Not Available Not Available No t Available Entresto 49 mg-51 mg tablet 05/11 completed Medicati on ID: [id number] B rand Name: Catherine Send Method: E-Prescr ibed Sub s Allowed: [...] Updated DateTime 05/26/2024 175.26 cm 30.9 kg/m2 02899.81 g Prachi Villalobos [place] - [facility] 05/26/2024 09:09:21 Social History None recorded. [...] Disorder N Anesthesia Complications N Heart Attack ([place]) Y Other Skin Condition N Diabetes Y [...] SNOMED-CT Code Diagnosis ICD10 Code Diagnosis Note [id number] KERRI ARAUZ MD [facility] [address] [address] 05/11/2024 08:46:34 05/11/2024 09:48:01 Bleeding from nose 623845888 R04.0 recurrent left anterior epistaxis Long-term current use of anticoagulant 460598923 Z79.01 Long-term current use of antiplatelet drug 6136840625 52820 Z79.02 [id number] KERRI ARAUZ MD [facility] [address] [place] [address] 05/26/2024 09:00:48 05/26/2024 09:16:44 Long-term current use of anticoagulant 488338129 Z79.01 Long-term current use of antiplatelet drug 4391902879 36776 Z79.02 Anterior epistaxis 54291 4002 R04.0 left, resolved Health Concerns Section Related Observation LastModified by Organization Detai ls LastModified Time None Recorded Concern Status LastModified by Organization Details LastModified Time None Recorded Payers Encounter Date Sequence Insurance Name Policy Number Policy Kim Covered Member ID Kim Member ID Guarantor Name 05/26/2024 1 [place]IC[place]: [id number] | [employer] Dom Sheikh [id number] Dom Mosqueda Kori Notes Date Note Type Note Provider Name and Address Organization Details Recorded Time 05/26/2024 text/html 79-year-old with history of recurrent left epistaxis and CHF on Eliquis and Aspirin presents for reevaluation of left epistaxis. He denies epistaxis since cautery two weeks ago. He has been recovering from a common cold and endorses frequent nose blowing. He has been using daily nasal saline. KERRI ARAUZ MD [address] [facility],[place] [address], [place], [address], [facility] - [facility] 05/30/2024 08:02:55"
--- OUTSIDE RECORDS SUMMARY | 2024-06-15 09:09 | XMS_ITS | Clinical Summary ---
Author Organization [facility] Address [address] [place] [address] Care Team Providers Care Gas Line Servicer Name Role Phone Astrid Reeder MD Primary [...] age to complete this topic Care Teams Gas Line Servicer Relationship Specialty Start Date End Date Astrid Reeder MD [address] [place] [phone] PCP - General Family Medicine 10/23/21
--- OUTSIDE RECORDS SUMMARY | 2024-06-15 09:09 | XMS_ITS | Clinical Summary ---
Author Organization [address] [place] [address] [place] [phone] Phone Care Team Providers Care Top Lift Scourer Name Role Phone Arlene Reeder MD Primary [...] by mouth every night at bedtime. Active umeclidinium-hermes nteroL (ANORO ELLIPTA) 62.5-25 mcg/actuation inhaler Inhale into the lungs. Active apixaban (ELIQUIS) 5 mg tablet Take by mouth every 12 (twelve) hours. Active fluticasone-umecl idinium-vilantero l (Trelegy Ellipta) 100-62.5-25 mcg inhaler Inhale 1 [...] by mouth every other day. 03/17/2021 Active sacubitriL-valsar ignacio (Entresto) 97-103 mg per tablet Take 1 tablet by mouth 2 (two) times a day. 02/25/2023 Active empagliflozin (Jardiance) 10 mg tablet Take 1 tablet (10 mg total) by mouth 1 (one) time each day. 06/30/2021 Active spironolactone (ALDACTONE) 25 mg tablet Take 0.5 tablets (12.5 mg total) by mouth 1 (one) time each day. 90 tablet 1 04/27/2024 Active carvediloL (COREG) 6.25 mg tablet Take 1 tablet (6.25 mg total) by mouth 2 (two) times a day with meals. 60 each 11 06/13/2024 06/13/2025 Active carvediloL (COREG) 25 mg tablet Take 1 tablet (25 mg total) by mouth 2 (two) times a day with meals. 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 4 at [facility] in 1996 -Pharmacologic nuclear stress test from 07/18/2014 showed a large, moderate anteroseptal wall and apical infarct without ischemia that is unchanged from 2009 - Recent hospitalization for heart failure exacerbation in February 2024 at [facility] during which time he had minimally elevated high-sensitivity troponins which were likely demand mediated and not primary event - Cardiac cath on 02/15/2024 showed severe three-vessel nikolski disease and left main disease; ZHANG to [...] beta-reuben, anticoagulated with Eliquis. Patient has a ONK0GI3-BTYv score of 6 he should remain anticoagulated. Of note the patient is scheduled to see ENT in the near future for cauterization of nosebleeds. Assessment & Plan (03/15/2024 4:56 PM EST): Continue current Eliquis for CVA prophylaxis and carvedilol for rate control. DM (diabetes mellitus), type 2 with peripheral vascular complications 11/09/2016 AICD (automatic cardioverter/defibrillator) pres ent 11/05/2016 Overview (04/27/2024): -[employer] device-generator change in October 2017 Assessment & Plan (04/27/2024 8:26 AM EST): Most recent device interrogation did not should deliver any shocks. Assessment & Plan (03/15/2024 4:55 PM EST): Continue device clinic follow-up. Unfortunately, his device does not have remote tracking of thoracic impedance as it predated thoracic impedance monitoring on [employer] devices. Adenomatous colon polyp 11/04/2016 Overview (02/23/2024): 06/2011; 5 yr f/u Arthritis 11/04/2016 Carpal tunnel syndrome 11/04/2016 Chronic liver disease 11/04/2016 Erectile dysfunction 11/04/2016 Gout 11/04/2016 Hemorrhoids 11/04/2016 Hypercholesterolemia 11/04/2016 Chronic HFrEF (heart failure with reduced ejection fraction) 09/03/2016 Overview (03/15/2024): - Longstanding diagnosis made over 20 years ago suddenly without recovery of ejection fraction after a major anterior SC with persistent infarction by nuclear imaging even after revascularization -Status post AICD placement with a [employer] device for primary prevention -Most recently [...] However his echo was repeated during his [facility] hospitalization on 02/11/2024 and showed reduction [...] is leaving that he is going to [place] to visit family. I asked him to be very cautious about his sodium intake and weigh himself every day while in [place]. I still believe he is quite tenuous and he is still awaiting callback from advanced heart failure treatment and transplant at [facility]. Continue current Entresto, carvedilol, Jardiance. I [...] Description 04/27/2024 7:40 AM EST Office Visit [facility] - [address] [place] [address] Eugene Schumacher NP Chronic HFrEF (heart failure with reduced ejection fraction) (CMS/HCC) (Primary Dx); Coronary artery disease involving coronary bypass graft of nikolski heart with angina pectoris (CMS/HCC); Chronic atrial fibrillation (CMS/HCC); AICD (automatic cardioverter/defibri llator) present; Hypertension, unspecified type; Ventricular tachycardia (CMS/HCC) 04/25/2024 10:05 AM EST Ancillary Procedure [facility] - [address] [place] [address] 03/27/2024 Telephone [facility] - [address] [place] [address] Cecy Hillman MD Lab Results (Lab results and referral to CHF clinic) 03/24/2024 Telephone [facility] - [address] [place] [address] Cecy Hillman MD lab work 03/17/2024 Telephone [facility] - [address] [place] [address] Lesley Hammonds NP Referral (Cardiology referral/) 03/15/2024 9:20 AM EST Office Visit [facility] - [address] [place] [address] Cecy Hillman MD Chronic HFrEF (heart failure with reduced ejection fraction) (CMS/HCC) (Primary Dx); Coronary artery disease involving coronary bypass graft of nikolski heart with angina pectoris (CMS/HCC); AICD (automatic [...] Comments COPD (chronic obstructive pu lmonary disease) ([facility]) 09/03/2016 DX:COPD (chronic obstructive pulmonary disease) ([facility]) Hypertension 11/04/2016 DX:Hypertension CAD (coronary artery disease) 11/04/2016 DX :CAD (coronary artery disease) Hypercholesterolemia 11/04/2016 DX:Hypercho lesterolemia Edema 09/03/2016 DX:Edema Arthritis 11/04/2016 DX:Arthritis Carpal tunnel syndrome 11/04/2016 DX:Carpal tunnel syndrome Gout 11/04/2016 DX:Gout DM (diabetes mellitus), type 2 with neurological complications ([facility]) 11/04/2016 DX:DM (diabetes m ellitus), type 2 with neurological complications ([facility]) Erectile dysfunction 11/04/2016 DX:Erectile dysfunction Peptic ulcer [...] 2 with peripheral vascular complications (HCC) Old SC (myocardial infarction) 11/09/2016 D X:Old SC (myocardial infarction) DARYA on CPAP 11/04/2016 DX:DARYA [...] Description 07/24/2024 9:30 AM EDT Office Visit [facility] Oncology [address] [place] [phone] Cindy Moore MD [address] [place] [address] 07/26/2024 8:40 AM EDT Office Visit [facility] [address] [address] Eugene Schumacher NP [address] [place] [address] 01/16/2025 1:30 PM EDT Ancillary Procedure [facility] [address] [phone] Health Maintenance Due Date Last Done Comments [...] this topic Medical Devices Implanted Type Area Side Panel Hanger Device Identifier Shelf Expiration Date Model / Serial / Lot Bsci-Crm [id number] Implanted:10/08 (Quantity not on file) Cardiac ICD [employer] MGMT [id number] / [id number] / Procedures Procedure Name Priority Date/Time Associated [...] 10:00 AM EST) Date Time Interrogation Session [id number] CV DEVICE CHECK Type Interrogation Session Remote Scheduled CV DEVICE CHECK Implantable Pulse Generator Side Panel Hanger BSX CV DEVICE CHECK Implantable Pulse Generator Type ICD CV DEVICE CHECK Implantable Pulse Generator Model D151 CV DEVICE CHECK Implantable Pulse Generator Serial Number [id number] CV DEVICE CHECK Implantable Pulse Generator Implant [...] LAB CHEMISTRY METHOD 03/24/2024 6:59 PM EST [facility] Potassium 4.8 3.5 - 5.5 mmol/L LAB CHEMISTRY METHOD 03/24/2024 6:59 PM [facility] Chloride 104 96 - 110 mmol/L LAB CHEMISTRY METHOD 03/24/2024 6:59 PM [facility] CO2 27 21 - 32 mmol/L LAB CHEMISTRY METHOD 03/24/2024 6:59 PM [facility] Anion Gap 7 3 - 11 LAB CHEMISTRY METHOD 03/24/2024 6:59 PM [facility] Glucose 97 70 - 100 mg/dL LAB CHEMISTRY METHOD 03/24/2024 6:59 PM [facility] BUN 24 5 - 25 mg/dL LAB CHEMISTRY METHOD 03/24/2024 6:59 PM [facility] Creatinine 1.34(H) 0.70 - 1.30 mg/dL LAB CHEMISTRY METHOD 03/24/2024 6:59 PM [facility] eGFR 55(L) >=60 mL/min/1. 73m2 LAB CHEMISTRY METHOD 03/24/2024 6:59 PM [facility] Comment:Calculation based on the??Chronic Kidney Disease Epidemiology Collaboration (CKD-EPI) equation refit??without adjustment for race. BUN/Creatinine Ratio 17.9 LAB CHEMISTRY METHOD 03/24/2024 6:59 PM [facility] Calcium 9.9 8.5 - 10.5 mg/dL LAB CHEMISTRY METHOD 03/24/2024 6:59 PM [facility] Blood Venous blood specimen / Unknown Venipuncture / Unknown 03/24/2024 12:46 PM EST 03/24/2024 12:46 PM EST Lesley Hammonds PASTE UP WORKER LAB BLOOD LEIGH [facility] [address] [place] [address], [place] [phone] * Urine Albumin Creatinine Ratio (03/13/2022) Urine Albumin Creatinine Ratio abstracted Historical Provider MD HIGGINBOTHAM MAINTENGUERO E * (ABNORMAL) Hemoglobin A1c (03/13/2022) Pathologist [facility] Hemoglobin A1C 6.8(A) 6.5 % Blood Venous blood specimen / Unknown Historical Provider LAB BLOOD ORDERAB LES * Lipid panel (03/13/2022) Pathologist [facility] LDL/HDL Ratio 3 0 - 4 Triglycerides 81 0 - 150 mg/dL Cholesterol 118 0 - 200 mg/dL HDL 44 40 mg/dL LDL Cholesterol 58 0 - 100 mg/dL Blood Venous blood specimen / Unknown Historical Provider LAB BLOOD ORDERAB LES * Hm Colonoscopy (12/29/2016) Pathologist [facility] Colonoscopy no interpretation , abstracted Anatomical Region Laterality Modality Other Historical Provider MD HIGGINBOTHAM MAINMICHELLE E * Hepatitis C Screening (09/04/2016) Pathologist [facility] Hepatitis C Screening abstracted Historical Provider MD HIGGINBOTHAM MAINMICHELLE E from Last 3 Months or Most Recently Relevant to Health Maintenance Care Teams Top Lift Scourer Relationship Specialty Start Date End Date Arlene Reeder MD [address] [place], [place] PCP - General Internal Medicine 10/09/21
== END | disposition home or self-care (01) ==
LOC: HO.BBR 08:52
PROVIDERS: PCP Family Medicine; Visit Provider Internal Medicine
DX: D75.1 Secondary polycythemia (principal)

== ENCOUNTER 2024-12-13 13:04 | Outpatient (REF) | payer MEDICARE, OTHER, SELFPAY ==
--- OUTSIDE RECORDS SUMMARY | 2024-12-13 13:37 | XMS_ITS ---
Author Name [facility] Organization Unknown Care Team Organization Name Specialty Phone Email Start Date End Da te [facility] Shellie Avery Primary Care 03/17/2022 12/27/2023
--- OUTSIDE RECORDS SUMMARY | 2024-12-13 13:37 | XMS_ITS | Clinical Summary ---
Author Organization [facility] Address [address] [place] [address] Care Team Providers Care Sustainability Project Manager Name Role Phone Astrid Reeder MD Primary [...] 99 08/16/2023 9:39 AM EDT Temperature 36.3 C (97.3 F) 08/16/2023 9:39 AM EDT Respiratory Rate - - Oxygen Saturation 100% 08/16/2023 9:39 AM EDT Inhaled Oxygen Concentration - - Weight 100.7 kg (222 lb) 08/16/2023 9:39 AM EDT Height 172.7 cm (5' 8 ) 08/16/2023 9:39 AM EDT Body Mass Index 33.75 08/16/2023 9:39 AM EDT Plan of Treatment Health Maintenance Due Date Last Done Comments Hepatitis C Screening 1945 COVID-19 Vaccine (#1) 1945 Depression Screening 1959 Preventative Health Evaluation 1965 Fall Risk Assessment 02/23/2012 RSV Adult > 60+ Yrs or (1 - 1-dose 75+ series) 2022 Influenza Vaccine (#1) 2025 9, 01/24/2018, 03/20/2017, Additional history exists DTap [...] age to complete this topic Care Teams Sustainability Project Manager Relationship Specialty Start Date End Date Astrid Reeder MD [address] [place] [phone] PCP - General Family Medicine 10/23/21
--- OUTSIDE RECORDS SUMMARY | 2024-12-13 13:38 | XMS_ITS | Patient Health Record ---
Author Organization [facility] [place] Address [address] [place] [address] Care Team Providers Care Irish Moss Operator Name Role Phone Kirill Hurst MD, [facility] Primary Care Provi kamlesh Unavailable Good Hudson Unavailable [phone] Allergies No Known Allergies Results Component Value Reference Range Notes HEMOGLOBIN A1C (GLYCOHEMOGLO BIN) Reviewed date:06/20/2024 10:22:17 AM Interpretation: Performing Lab: Notes/Report: HEMOGLOBIN A1C % (HH) 7.5 HEMOGLOBIN A1C (GLYCOHEMOGLO BIN) Reviewed date:09/22/2024 09:23:34 AM Interpretation: Performing Lab: Notes/Report: HEMOGLOBIN A1C % (HH) 7.4 Reason For Referral No Information Medications Medication SIG (Take, Route, Frequency, Duration) Notes Start Date End Date Status Anoro Ellipta Active Allopurinol 300 MG Orally Once a day Active Vitamin D3 Active Aspirin 81 MG 1 tablet Orally Once a day Active Spironolactone Activ e Ozempic Active Simvastatin 20 MG 1 tablet in the even ing Orally Once a day Active Multivitamin Active Lantus 20units Subcutaneous once a day Active metFORMIN HCl 500 MG 1 tablet with meals Orally Twice a day Active Eliquis 5 MG Orally Active Stiolto Respimat 2.5-2.5 MCG/ACT INHALE 2 PUFFS Q 24 H Inhalation; Duration: 30 Not-Taking Entresto Active Glimepiride 4 MG TK 1 T PO BID Oral; Duration: 30 Not-Taking Carvedilol 25 MG Orally Act sarah Trulicity Not-Taking Bumetanide 1 MG 1 tablet Orally Once a day Active Extra Depth Orthopedic Shoes, (1) Pair With (3) Pair Custom Heat Molded Multidensity Innersoles Dx: IDDM/PVD(E10.51), Hammertoe Foot Deformity, B/L(M20.41,M20.42), Preulcerative Skin Lesion(s)(L85.1) Wear Daily; Duration: 365 days 09/21/2023 Active Ammonium Lactate 12 % 1 application Externally Twice a day; Duration: 30 days Active Immunizations Vaccine Route Administration Date Status Comme nts Influenza Unknown 05/13/2017 Administered Influenza Unknown 03/18/2018 Administered Influenza Unknown 01/24/2022 Administered Pneumococcal Unknown 01/26/2020 Administered COVID-19 Moderna Vaccine Unknown 02/20/2021 Administere d 1st 07/19/2020 2nd 08/16/2020 Social History Tobacco Use: Social History Observation Description Date Details (start date - stop date) Never Smoker NA - NA Tobacco use other than smoking: Question Answer Notes Are you an other tobacco user? No Tobacco Control (Standard) Question Answer Notes Tobacco use: Nonsmoker Additional Findings: Tobacco non-user Current no nsmoker AUDIT-C (Standard) Question Answer Notes Did you have a drink containing alcohol in the p ast year? No Points 0 Interpretation Negative Problems Problem Type SNOMED Code ICD Code Onset Dates Problem Status W/U Status Risk Notes Problem Acquired hammer toe of right foot (52106884229502 05) Other hammer toe(s) (acquired), right foot (M20.41) Active confirmed Response to treatment,I mprovement Problem Acquired hammer toe of left foot (30532432625302 03) Other hammer toe(s) (acquired), left foot (M20.42) Active confirmed Response to treatment,I mprovement Problem Peripheral circulatory disorder associated with type 1 diabetes mellitus (030358892) Type 1 diabetes mellitus with diabetic peripheral angiopathy without gangrene (E10.51) Active confirmed Q7(A), Q8(2B), Q9(1B,2C) Vital Signs Blood pressure diastolic 73 mm Hg 09/22/2024 Height 5 ft 8 in in 09/22/2024 Blood pressure systolic 120 mm Hg 09/22/2024 Weight 204 lbs 09/22/2024 BMI 31.01 kg/m2 09/22/2024 Procedures Procedure Date Ordered Date Performed Result Body Sit e 09382-EWUBCPF NAIL, 6 OR MORE 12/21/2023 N/A 20802-WSQL SKIN LESIONS, OVER 4 12/21/2023 N/A 40191-PBYSOGG NAIL, 6 OR MORE 03/21/2024 N/A 84721-BNQN SKIN LESIONS, OVER 4 03/21/2024 N/A 94495-PAFPWBQ NAIL, 6 OR MORE 06/20/2024 N/A 36483-SOLV SKIN LESIONS, OVER 4 06/20/2024 N/A 52226-MOBELBL NAIL, 6 OR MORE 09/22/2024 N/A 89229-GPPJ SKIN LESIONS, OVER 4 09/22/2024 N/A Encounters Encounter Location Date Provider Diagnosis [address] [address] 12/21/2023 Good [facility]cca Type 1 diabetes mellitus with diabetic peripheral angiopathy without gangrene E10.51 ; Onychomycosis B35.1 ; Pain of toe of right foot M79.674 and Pain of toe of left foot M79.[address] [address] 03/21/2024 Good Becca Type 1 diabetes mellitus with diabetic peripheral angiopathy without gangrene E10.51 ; Onychomycosis B35.1 ; Pain of toe of right foot M79.674 ; Pain of toe of left foot M79.675 ; Other hammer toe(s) (acquired), right foot M20.41 and Other hammer toe(s) (acquired), left foot M20.[address] [address] 06/20/2024 Goodtha Hudson Type 1 diabetes mellitus with diabetic peripheral angiopathy without gangrene E10.51 ; Onychomycosis B35.1 ; Pain of toe of right foot M79.674 and Pain of toe of left foot M79.[address] [address] 09/22/2024 Good Becca Type 1 diabetes mellitus with diabetic peripheral angiopathy without gangrene E10.51 ; Onychomycosis B35.1 ; Pain of toe of right foot M79.674 and Pain of toe of left foot M79.675 Assessments Encounter Date Diagnosis (ICD Code) Assessment Notes Treatment Notes Treatment Clinical Notes Section Notes 12/21/2023 Type 1 diabetes mellitus with diabetic peripheral angiopathy without gangrene (ICD-10 - E10.51) 12/21/2023 Onychomycosis (ICD-10 - B35.1) 03/21/2024 Type 1 diabetes mellitus with diabetic peripheral angiopathy without gangrene (ICD-10 - E10.51) 03/21/2024 Onychomycosis (ICD-10 - B35.1) 06/20/2024 Type 1 diabetes mellitus with diabetic peripheral angiopathy without gangrene (ICD-10 - E10.51) 06/20/2024 Onychomycosis (ICD-10 - B35.1) 09/22/2024 Type 1 diabetes mellitus with diabetic peripheral angiopathy without gangrene (ICD-10 - E10.51) 09/22/2024 Onychomycosis (ICD-10 - B35.1) 06/20/2024 Pain of toe of right foot (ICD-10 - M79.674) 09/22/2024 Pain of toe of right foot (ICD-10 - M79.674) 12/21/2023 Pain of toe of right foot (ICD-10 - M79.674) 03/21/2024 Pain of toe of right foot (ICD-10 - M79.674) 03/21/2024 Pain of toe of left foot (ICD-10 - M79.675) 12/21/2023 Pain of toe of left foot (ICD-10 - M79.675) 09/22/2024 Pain of toe of left foot (ICD-10 - M79.675) 06/20/2024 Pain of toe of left foot (ICD-10 - M79.675) 03/21/2024 Other hammer toe(s) (acquired), right foot (ICD-10 - M20.41) Response to treatment,Impro vement 03/21/2024 Other hammer toe(s) (acquired), left foot (ICD-10 - M20.42) Response to treatment,Impro vement 12/21/2023 Other 03/21/2024 Other 06/20/2024 Other 09/22/2024 Other Plan Of Treatment Pending Test Test Name Order Date 61488-IWSWEXR NAIL, 6 OR MORE 12/17/2017 46597-JTYUJQP NAIL, 6 OR MORE 03/18/2018 58721-LWMDXLU NAIL, 6 OR MORE 06/17/2018 81479-WUNSPZS NAIL, 6 OR MORE 09/13/2018 01421-WYCHPFV NAIL, 6 OR MORE 12/13/2018 95331-SVAJHRY NAIL, 6 OR MORE 03/21/2019 26604-ULXSAZN NAIL, 6 OR MORE 06/23/2019 28670-GAOORDS NAIL, 6 OR MORE 09/29/2019 08237-NUQZXBH NAIL, 6 OR MORE 12/29/2019 73960-MRMSROF NAIL, 6 OR MORE 03/26/2020 91941-ULGAFXQ NAIL, 6 OR MORE 07/02/2020 34367-JQPMIHM NAIL, 6 OR MORE 09/24/2020 12499-INFXVGS NAIL, 6 OR MORE 12/24/2020 41523-HXJGEXS NAIL, 6 OR MORE 03/28/2021 85779-UIOTESB NAIL, 6 OR MORE 06/27/2021 16869-QFUGILO NAIL, 6 OR MORE 09/30/2021 59492-TCBRPNO NAIL, 6 OR MORE 12/16/2021 93232-ZQNJQRJ NAIL, 6 OR MORE 03/17/2022 44464-POXIAOI NAIL, 6 OR MORE 06/16/2022 05310-QCRGMUL NAIL, 6 OR MORE 09/15/2022 41904-ZLIYLXA NAIL, 6 OR MORE 12/15/2022 99066-TTIHSVN NAIL, 6 OR MORE 03/16/2023 09127-IYUUWRP NAIL, 6 OR MORE 06/18/2023 63058-ZXBRQMT NAIL, 6 OR MORE 09/21/2023 86027-YWFPISJ NAIL, 6 OR MORE 12/21/2023 85601-YBNBNHM NAIL, 6 OR MORE 03/21/2024 03677-EVEIJVX NAIL, 6 OR MORE 06/20/2024 48160-YBCJGIW NAIL, 6 OR MORE 09/22/2024 66258-KUXOHKK NAIL, 1-5 08/24/2017 37763-YKFXNQJ NAIL, 1-5 11/24/2016 87521-JOSXZBR NAIL, 1-5 02/23/2017 85640-FLRYVAP NAIL, 1-5 05/25/2017 33743-SNEP SKIN LESIONS, OVER 4 11/25/19 17 53915-BWCY SKIN LESIONS, OVER 4 02/24/20 17 77446-VUBY SKIN LESIONS, OVER 4 05/25/19 18 57959-VPRP SKIN LESIONS, OVER 4 08/25/19 18 50736-SJVG SKIN LESIONS, OVER 4 06/17/19 69603-PUKV SKIN LESIONS, OVER 4 03/18/20 18 82224-QFCY SKIN LESIONS, OVER 4 09/25/19 42615-WGQQ SKIN LESIONS, OVER 4 07/02/19 14408-ERPO SKIN LESIONS, OVER 4 03/26/20 19706-VCOC SKIN LESIONS, OVER 4 12/29/19 58447-RYVC SKIN LESIONS, OVER 4 06/23/19 07295-TGBX SKIN LESIONS, OVER 4 09/29/19 78434-CTRD SKIN LESIONS, OVER 4 03/21/20 19 30458-THFM SKIN LESIONS, OVER 4 12/14/19 19 73833-PCMR SKIN LESIONS, OVER 4 09/14/19 19 88120-LRRL SKIN LESIONS, OVER 4 09/23/19 98763-XQYD SKIN LESIONS, OVER 4 06/20/19 51859-QGCR SKIN LESIONS, OVER 4 03/21/20 24 35509-EWRM SKIN LESIONS, OVER 4 12/21/19 24 34868-UXRJ SKIN LESIONS, OVER 4 09/21/19 24 84199-MTXF SKIN LESIONS, OVER 4 06/18/19 24 85250-AFJW SKIN LESIONS, OVER 4 03/16/20 23 18815-KBTA SKIN LESIONS, OVER 4 12/16/19 23 01563-RCIS SKIN LESIONS, OVER 4 09/16/19 97923-QNZJ SKIN LESIONS, OVER 4 06/16/19 63698-QLPC SKIN LESIONS, OVER 4 03/17/20 50888-VBQK SKIN LESIONS, OVER 4 12/17/19 14850-JDYH SKIN LESIONS, OVER 4 10/01/19 46360-HMWI SKIN LESIONS, OVER 4 06/27/19 36613-TZKO SKIN LESIONS, OVER 4 03/28/20 84337-RQZJ SKIN LESIONS, OVER 4 12/25/19 65597-HUKQ SKIN LESIONS, OVER 4 12/18/19 18 Q2593-LDXTNOXF DYSTROPHIC NAILS ANY # G3285-HVBDKIUD DYSTROPHIC NAILS ANY # K5139-YMPPDGJW DYSTROPHIC NAILS ANY # X7197-XCULUOZY DYSTROPHIC NAILS ANY # Next Appt Details Provider Name:Good Hudson , 01/02/2025 11:00:00 AM, [address] [facility], [place], [address], Insurance Providers Payer Name Payer Address Payer Phone Subscriber Number Group Number Insured Name Patient Relationship to Insured Coverage Start Date Coverage End Date Medicare National Govt [employer] [address] [place] [address] [id number] Dom Sheikh Self - patient is the insured for Life [address] [place] [phone] [id number] Dom Sheikh Self - patient is the insured Medical (General) History Medical History History ICD Code Arthritis Back,Hip,and Knee pain CAD (Cholesterol) Cataracts Diabetic type 2 Gout Measles Heart disease High blood pressure Kidney disease Liver disease Lung disease Poor circulation Stomach ulcer Surgical History Surgery Date(Month/Year) Bypass 06/1996 appendectomy 06/2016 Colonoscopy Glicoma right eye Hospitalization History Reason Date(Month/Year) [facility]- dizzy 02/2024
--- OUTSIDE RECORDS SUMMARY | 2024-12-13 13:38 | XMS_ITS | Clinical Summary ---
Author Organization [address] [place] [address] Address [address] [place] [address] Phone Care Team Providers Care Artificial Insemination Technician Name Role Phone Arlene Reeder MD Primary Care Provi kamlesh Allergies No known active allergies Medications allopurinoL (ZYLOPRIM) 300 mg tablet Take 1 [...] by mouth every night at bedtime. Active apixaban (ELIQUIS) 5 mg tablet Take by mouth every 12 (twelve) hours. Active fluticasone-ume clidinium-vilan terol (Trelegy Ellipta) 100-62.5-25 mcg inhaler Inhale 1 puff (100 mcg total) by mouth 1 (one) time each day. 10/13/2022 Active semaglutide (Ozempic) 0.25 mg or 0.5 mg(2 mg/1.5 mL) injection pen Inject 1 mg under the skin every 7 (seven) days. Active multivitamin (MULTIPLE VITAMINS ORAL) Take 1 tablet by mouth 1 (one) time each day. Active pen needle, diabetic 32 gauge x 5/32 needle Use with Insulin pens 06/27/2020 Active bumetanide (BUMEX) 1 mg tablet Take 1 tablet (1 mg total) by mouth every other day. 03/17/2021 Active sacubitriL-vals naseem (Entresto) 97-103 mg per tablet Take 0.5 tablets by mouth 2 (two) times a day. 02/25/2023 Active empagliflozin (Jardiance) 10 mg tablet Take 1 tablet (10 mg total) by mouth 1 (one) time each day. 06/30/2021 Active spironolactone (ALDACTONE) 25 mg tablet Take 0.5 tablets (12.5 mg total) by mouth 1 (one) time each day. 90 tablet 1 04/27/2024 Active carvediloL (COREG) 3.125 mg tablet Take 1 tablet (3.125 mg total) by mouth 2 (two) times a day with meals. 90 tablet 1 10/20/2024 Active Active Problems Problem Noted Date Diagnosed Date Dizziness 10/20/2024 Assessment & Plan (10/20/2024 11:50 AM EDT): Likely related to hypotensive readings at home. However for completeness I am going to update a carotid ultrasound bilaterally. Morbid obesity ([facility] V24, 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 V24) 03/15/2024 Overview (03/15/2024): -Status post CABG 4 at [facility] in 1996 -Pharmacologic nuclear stress test from 07/18/2014 showed a large, moderate anteroseptal wall and apical infarct without ischemia that is unchanged from 2009 - Recent hospitalization for heart failure exacerbation in February 2024 at [facility] during which time he had minimally elevated high-sensitivity troponins which were likely demand mediated and not primary event - Cardiac cath on 02/15/2024 showed severe three-vessel upper sioux disease and left main disease; ZHNAG to the LAD is occluded, vein graft to the RPDA is patent, vein graft to the ramus intermedius is patent, LVEDP was upper normal to mildly increased at 15 mmHg Assessment & Plan (10/20/2024 11:44 AM EDT): Patient just finished cardiac rehab. Reports no anginal symptoms today. Continue on carvedilol, 81 mg of aspirin, and simvastatin. Instructed to call 911 or go to the emergency room should the patient begin to experience chest pain or pressure lasting greater than 10 minutes does not resolve with rest. Assessment & Plan (07/26/2024 9:34 AM EDT): Patient is going through cardiac rehab. Reports no anginal symptoms today. Continue on carvedilol, 81 mg of aspirin, and simvastatin. Instructed to call 911 or go to the emergency room should the patient begin to experience chest pain or pressure lasting greater than 10 minutes does not resolve with rest. Assessment & Plan (04/27/2024 8:26 AM EST): [...] Otherwise continue current aspirin, simvastatin. Ventricular tachycardia (CMS/HCC V24, CMS/HCC V2 8) 03/15/2024 Assessment & Plan (10/20/2024 11:49 AM EDT): Please continue with device checkups. Assessment & Plan (07/26/2024 9:34 AM EDT): No shocks delivered at most recent device check. Continue monitoring. Assessment & Plan (03/15/2024 4:57 PM EST): Has had a steady intermittent burden of nonsustained VT but never any tachycardia therapies. As such, we have held off on amiodarone use. This may be a possibility in the future if he does start having tachycardia therapies. Aortic ectasia ([facility] V24) 12/23/2023 Overview (02/23/2024): -See echo under HFrEF section -CT of the chest on 11/14/2019 showed the ascending aorta 3.9 cm at the level of the main PA Assessment & Plan (10/20/2024 11:45 AM EDT): High end of normal. Last measurement on echo in 2023 3.9 cm. I am going to be updating an echocardiogram in 3 months. Assessment & Plan (07/26/2024 9:34 AM EDT): CT of the chest on 11/14/2019 showed ascending and ascending aorta at 3.9 cm. Will repeat echocardiogram later this. COVID-19 06/03/2021 Overview (02/23/2024): Positive at an center- 06/06/21 Class 2 severe obesity due t o excess calories with serious comorbidity and body mass index (BMI) of 37.0 to 37.9 in adult (CMS/HCC V24, CMS/HCC V28) 05/06/2017 Chronic atrial fibrillation (CMS/HCC V24, CMS/ C V28) 01/18/2017 Overview (03/15/2024): On Eliquis for anticoagulation Rate controlled Assessment & Plan (07/26/2024 9:34 AM EDT): Patient denies any abnormal nosebleeds or bleeding of any kind. Denies any recent falls. States he understands that if he falls and has a head strike he does need to present to the ER. Continue with Xarelto and carvedilol. Patient has an elevated [id number] score for heart failure, PVD, age, diabetes. Patient should remain anticoagulated. Assessment & Plan (04/27/2024 8:26 AM EST): Patient on beta-reuben, anticoagulated with Eliquis. Patient has a [id number] score of 6 he should remain anticoagulated. Of note the patient is scheduled to see ENT in the near future for cauterization of nosebleeds. Assessment & Plan (03/15/2024 4:56 PM EST): Continue current Eliquis for CVA prophylaxis and carvedilol for rate control. DM (diabetes mellitus), type 2 with peripheral vascular complications (CMS/HCC V24, CMS/HCC V28) 11/09/2016 AICD (automatic cardioverter/defibrillator) pres ent 11/05/2016 Overview (04/27/2024): -[employer] device-generator change in October 2017 Assessment & Plan (10/20/2024 11:45 AM EDT): Continue with device checks. Assessment & Plan (04/27/2024 8:26 AM EST): Most recent device interrogation did not should deliver any shocks. Assessment & Plan (03/15/2024 4:55 PM EST): Continue device clinic follow-up. Unfortunately, his device does not have remote tracking of thoracic impedance as it predated thoracic impedance monitoring on [employer] devices. Adenomatous colon polyp 11/04/2016 Overview (02/23/2024): 06/2011; 5 yr f/u Arthritis 11/04/2016 Carpal tunnel syndrome 11/04/2016 Chronic liver disease 11/04/2016 Erectile dysfunction 11/04/2016 Gout 11/04/2016 Hemorrhoids 11/04/2016 Hypercholesterolemia 11/04/2016 Assessment & Plan (07/26/2024 9:34 AM EDT): Continue on current dose of simvastatin 20 mg. Would like LDL to be at 70 or below. Will look to redraw a lipid panel in 3 months. Chronic HFrEF (heart failure with reduced ejection fraction) (CMS/HCC V24, CMS/HCC V28) 09/03/2016 Overview (03/15/2024): - Longstanding diagnosis made over 20 years ago suddenly without recovery of ejection fraction after a major anterior DE with persistent infarction by nuclear imaging even after revascularization -Status post AICD placement with a [employer] device for primary prevention -Most recently with NYHA class III heart failure symptoms as of 2023 - See most recent cardiac cath in CAD section - Hospitalized in February 2024 with what looks to be a CHF exacerbation-there was comment about him having a NSTEMI and chest pain however in review of the modestly elevated troponin T's that have plateaued, Dr Meza suspects this was demand mediated and not [...] However his echo was repeated during his [facility] hospitalization on 02/11/2024 and showed reduction [...] 20 to 25% range Assessment & Plan (10/20/2024 11:48 AM EDT): Patient is euvolemic on exam. Having some hypotensive readings and some associated dizziness I am going to be decreasing his carvedilol down to 3.125 mg p.o. twice daily. This is going to be in addition to the Entresto 49/51 mg p.o. twice daily, Jardiance 10 mg p.o. daily as well as the spironolactone 12.5 mg p.o. daily. I am going to be updating an echocardiogram to reassess his LVEF function. Patient does have ICD. Continue to weigh yourself daily. Assessment & Plan (07/26/2024 9:34 AM EDT): Patient is euvolemic on exam today. Has been doing a good job limiting his sodium at home. Will continue to weigh himself daily. Would like him to reach out to the office if he gains more than 2 pounds in a day or 5 pounds in a week. I am going to be reducing his Entresto dosage down to 49/51 mg. And have the patient continue to take blood pressures at home. Assessment & Plan (04/27/2024 8:26 AM EST): [...] is leaving that he is going to [place] to visit family. I asked him to be very cautious about his sodium intake and weigh himself every day while in [place]. I still believe he is quite tenuous and he is still awaiting callback from advanced heart failure treatment and transplant at [facility]. Continue current Entresto, carvedilol, Jardiance. I hesitate to increase spironolactone to the full dose because of high normal potassium on most recent basic metabolic panel. COPD (chronic obstructive pu lmonary disease) ([facility] V24, [facility] V28) 09/03/2016 Intra-abdominal varices Hypertension Assessment & Plan (10/20/2024 11:49 AM EDT): He has been getting hypotensive readings at cardiac rehab and at home. I am reducing his carvedilol down to 3.125 mg p.o. twice daily. Assessment & Plan (04/27/2024 8:26 AM EST): [...] Encounters Date Type Department Care Team Description 10/26/2024 Telephone [facility] - [address] [place] [address] Edna Lawler MA 10/24/2024 1:30 PM EDT Ancillary Procedure [facility] - [address] [place] [phone] 10/23/2024 9:15 AM EDT Ancillary Procedure [facility] - [address] [place] [phone] Dizziness 10/20/2024 11:10 AM EDT Office Visit [facility] - [address] [place] [address] Eugene Schumacher NP Chronic HFrEF (heart failure with reduced ejection fraction) ([facility] V24, [facility] V28) (Primary Dx); Aortic ectasia ([facility] V24[facility] Chronic atrial fibrillation ([facility] V24, [facility] V28); Hypercholesterolemia ; Hypertension, unspecified type; Coronary artery disease involving coronary bypass graft of upper sioux heart with angina pectoris ([facility] V24); Ventricular tachycardia ([facility] V24, [facility] V28); Dizziness; AICD (automatic cardioverter/defibri llator) present 10/17/2024 10:15 AM EDT Office Visit [facility] - [place] [address] [place] [phone] Linda Paulino MD Chronic atrial fibrillation ([facility] V24, [facility] V28) (Primary Dx); Chronic obstructive pulmonary disease, unspecified COPD type ([facility] V24, [facility] V28); Morbid obesity ([facility] V24, [facility] V28); Obstructive sleep apnea from Last 3 Months Immunizations Name Administration [...] Comments COPD (chronic obstructive pu lmonary disease) ([facility] V24, [facility] V28) 09/03/2016 DX:COPD (chronic o bstructive pulmonary disease) ([facility]) Hypertension 11/04/2016 DX:Hypertension CAD (coronary artery disease) 11/04/2016 DX :CAD (coronary artery disease) Hypercholesterolemia 11/04/2016 DX:Hypercho lesterolemia Edema 09/03/2016 DX:Edema Arthritis 11/04/2016 DX:Arthritis Carpal tunnel syndrome 11/04/2016 DX:Carpal tunnel syndrome Gout 11/04/2016 DX:Gout DM (diabetes mellitus), type 2 with neurological complications ([facility] V24, CMS/HCC V28) 11/04/2016 DX:DM (diabetes mellitus), t ype 2 with neurological complications (HCC) Erectile dysfunction 11/04/2016 DX:Erectile dysfunction Peptic ulcer disease 11/04/2016 DX:Peptic u lcer disease; COMMENT: S/p h. pylori treatment Microalbuminuria 11/04/2016 DX:Microalbumin uria DM (diabetes mellitus), type 2 with renal complications (CMS/HCC V24, CMS/HCC V28) 11/04/2016 DX:DM (diabetes mellitus), t ype 2 with renal complications (HCC) Chronic liver disease 11/04/2016 DX:Chronic liver disease Chronic atrial fibrillation (CMS/HCC V24, CMS/HCC V28) 09/03/2016 DX:Chronic atrial fibrillati on (HCC); COMMENT: Chronic anticoagulation Intra-abdominal varices 09/03/2016 DX:Intra -abdominal varices Pancreatic cyst 09/03/2016 DX:Pancreatic cy st Chronic congestive heart torsten lure (CMS/HCC V24, CMS/HCC V28) 09/03/2016 DX:Chronic congestive heart failure (HCC); COMMENT: EF 45-50% was 35% in 2009 Adenomatous colon polyp 11/04/2016 DX:Adeno matous colon polyp; COMMENT: 06/2011 Meralgia paresthetica, left lower limb 11/04/2016 DX:Meralgia paresthetica, left lower limb Cardiomyopathy (CMS/HCC V24, CMS/HCC V28) 11/04/2016 DX:Cardiomyopathy (HCC); COM MENT: LVEF 35 %, 05/20/16 Hemorrhoids 11/04/2016 DX:Hemorrhoids AICD (automatic cardioverter/defibrillator) present 11/05/2016 DX:AICD (automatic cardioverter/defibrillator) present DM (diabetes mellitus), type 2 with peripheral vascular complications (CMS/HCC V24, CMS/HCC V28) 11/09/2016 DX:DM (diabetes mellitus), type 2 with peripheral vascular complications (HCC) Old DE (myocardial infarction) 11/09/2016 D X:Old DE (myocardial infarction) DARYA on CPAP 11/04/2016 DX:DARYA [...] 0 05/25/1960 - 05/10/1971 Smokeless Tobacco: Never Alcohol Use Standard Drinks/Week Comments Yes 0 (1 standard drink = 0.6 oz pur e alcohol) Sex and Gender Information Value Date Recorded Sex Assigned at Male 03/15/2024 11:55 AM EST Legal Sex Male 11:00 PM EST Gender Identity Male 03/15/2024 11:55 AM EST Sexual Orientation Straight 03/15/2024 11 :55 AM EST Obstetrics History Last Filed Vital Signs Vital Sign Reading Time Taken Comments Blood Pressure 104/62 10/20/2024 10:57 AM EDT Pulse 66 10/20/2024 10:57 AM EDT Temperature 36.7 C (98 F) 10/17/2024 10:20 AM EDT Respiratory Rate 20 10/17/2024 10:20 AM EDT Oxygen Saturation 96% 10/20/2024 10:57 AM EDT Inhaled Oxygen Concentration - - Weight 93.9 kg (207 lb) 10/20/2024 10:57 AM EDT Height 172.7 cm (5' 8 ) 10/20/2024 10:57 AM EDT Body Mass Index 31.47 10/20/2024 10:57 AM EDT Plan of Treatment Upcoming Encounters Date Type Department Care Team (Late st Contact Info) Description 01/16/2025 1:30 PM EDT Ancillary Procedure [facility] - [facility] [address] [facility] [address] [place] [address] 01/17/2025 10:30 AM EDT Office Visit [facility] - [place] [address] [facility] [address] [place] [phone] Linda Paulino MD [address] [facility] [address] [place] [address] 01/31/2025 8:30 AM EDT Ancillary Procedure [facility] - [facility] [address] [facility] [address] [place] [address] 08/14/2025 9:30 AM EDT Office Visit [facility] [address] [place] [phone] Cindy Moore MD [address] [place] [address] Health Maintenance Due Date Last Done Comments Diabetes: Annual Foot Exam 1955 Diabetes: Annual Retina Eye Exam 1955 Falls Risk Assessment 04/18/2022 Social Influencers of Health Screening 04/18/2022 Diabetes: Blood Sugar Control Test (HGBA1C) 09/10/2022 03/13/2022 Diabetes: Annual Urine Albumin-Creatinine Ratio (uACR) 03/13/2023 03/13/2022 Medicare Annual Wellness Visit 09/29/2023 09/28/2022 Depression Screening 05/10/2024 COVID-19 Vaccine ( season) 2024 01/23/2024, 01/18/2024, 04/20/2023, Additional history exists Influenza Vaccine (#1) 2025 , 01/08/2023, 02/06/2022, Additional history exists Diabetes: Annual GFR (Glomerular Filtration Rate) 08/16/2025 08/16/2024, 08/07/2024, 03/24/2024, Additional history exists Hypertension/CHF/CAD Annual BMP Blood Test 08/16/2025 08/16/2024, 08/07/2024, 03/24/2024, Additional history exists Colorectal Cancer Screening: Colonoscopy 12/29/2026 12/29/2016 Cholesterol Screening (Lipid Panel) 03/13/2027 03/13/2022 DTaP,Tdap,and Td Vaccines (9 - Td or Tdap) 07/30/2034 07/30/2024, 02/10/2021, 02/10/2021, Additional history exists Hepatitis C Screening Completed 09/04/2016 Zoster Vaccines Completed 04/05/2018, 01/08, 01/23/2014, Additional history exists RSV Immunization Adult Patients Completed 01/08/2023 Pneumococcal Vaccine: 50+ Years Completed 07/30/2024, 01/26/2020, 02/17/2019, Additional history exists HIB Vaccines Aged Out [...] patient's age to complete this topic Meningococcal B Vaccine Aged Out No l onger eligible based on patient's age to complete this topic RSV Immunization Patients Under 20 months Aged Out No longer eligible based on patient's age to complete this topic Varicella Vaccines Aged Out No longer eligible based on patient's age to complete this topic Medical Devices Implanted Type Area Presales Consultant Device Identifier Shelf Expiration Date Model / Serial / Lot [id number] Implanted:10/08 (Quantity not on file) Cardiac ICD [employer] MGMT [id number] / [id number] / Procedures Procedure Name Priority Date/Time Associated Diagnosis Comments CARDIAC DEVICE CHECK- REMOTE- MURJ Routine 10/24/2024 1:26 PM EDT VAS US DUPLEX CAROTID BILATERAL Routine 10/23/2024 9:30 AM EDT Dizziness ECG 12-LEAD Routine 10/20/2024 11:50 AM EDT Chronic HFrEF (heart failure with reduced ejection fraction) (CMS/HCC V24, CMS/HCC V28) BASIC METABOLIC PANEL Routine 08/16/2024 12:44 PM EDT Hypercholesterolemi a HM URINE ALBUMIN CREATININE RATIO Routine 03/13/2022 HEMOGLOBIN A1C Routine 03/13/2022 LIPID PANEL Routine 03/13/2022 COLONOSCOPY Routine 12/29/2016 HEPATITIS C SCREENING Routine 09/04/2016 from Last 3 Months or Most Recently Relevant to Health Maintenance Results * Cardiac device check - Remote- MURJ (10/24/2024 1:26 PM EDT) Date Time Interrogation Session [id number] CV DEVICE CHECK Type Interrogation Session Remote Scheduled CV DEVICE CHECK Implantable Pulse Generator Presales Consultant BSX CV DEVICE CHECK Implantable Pulse Generator Type ICD CV DEVICE CHECK Implantable Pulse Generator Model [id number] CV DEVICE CHECK Implantable Pulse Generator Serial Number [id number] CV DEVICE CHECK Implantable Pulse Generator Implant Date [id number] CV DEVICE CHECK Battery Remaining Percentage 100.00 CV DEVICE CHECK Battery Remaining Longevity 126.0 CV DEVICE CHECK Battery Status Beginning of Service CV DEVICE CHECK Capacitor Charge Time 11.000 CV DEVICE CHECK Suraj Statistic RV Percent Paced 3.00 CV DEVICE CHECK Lead Channel Sensing Intrinsic Amplitude 6.600 CV DEVICE CHECK Lead Channel Setting Sensing Sensitivity 0.60 CV DEVICE CHECK Lead Channel Impedance Value 459 CV DEVICE CHECK Lead Channel Setting Pacing [...] 0 CV DEVICE CHECK Shock Measured Impedance 58 CV DEVICE CHECK Zone Setting Type Category [...] 3 CV DEVICE CHECK Date of Service 2024-12-01 CV DEVICE CHECK Anatomical Region Laterality Modality Device Interroga tion 10/19/2024 2:26 PM EDT Impressions 10/24/2024 10:25 AM EDT Normal Remote: No Events * Normal Device Function * Alerts or events: None * Battery: Battery is at 100%, 10.50 yrs * Sensing, impedance and thresholds reviewed * Programmed parameters reviewed * Presenting rhythm reviewed * Heart Rate Histograms reviewed * No significant changes noted Narrative Procedure Note Eliseo Cortez MD - 10/24/2024 IMPRESSION: Normal Remote: No Events * Normal Device Function * Alerts or events: None * Battery: Battery is at 100%, 10.50 yrs * Sensing, impedance and thresholds reviewed * Programmed parameters reviewed * Presenting rhythm reviewed * Heart Rate Histograms reviewed * No significant changes noted us Eliseo Cortez MD CV IMPLANTABLE CARDIAC DEVICE PROCEDURES Final Result * Vascular US duplex carotid bilateral (10/23/2024 9:30 AM EDT) Left CCA dist talbot 13 cm/s CV VAS LAB Left CCA dist sys 74 cm/s CV VAS LAB LEFT COMMON CAROTID ARTERY MID D 19 cm/s CV VAS LAB LEFT COMMON CAROTID ARTERY MID S 92 cm/s CV VAS LAB Left CCA prox talbot 14 cm/s CV VAS LAB Left CCA prox sys 94 cm/s CV VAS LAB LEFT EXTERNAL CAROTID ARTERY D 8 cm/s CV VAS LAB Left ECA sys 100 cm/s CV VAS LAB Left ICA/CCA sys 1.00 no units CV VAS LAB Left ICA dist talbot 20 cm/s CV VAS LAB Left ICA dist sys 67 cm/s CV VAS LAB Left ICA mid talbot 24 cm/s CV VAS LAB Left ICA mid sys 72 cm/s CV VAS LAB Left ICA prox talbot 13 cm/s CV VAS LAB Left ICA prox sys 44 cm/s CV VAS LAB Left vertebral sys 41 cm/s CV VAS LAB Right CCA dist talbot 15 cm/s CV VAS LAB Right cca dist sys 74 cm/s CV VAS LAB RIGHT COMMON CAROTID ARTERY MID D 15 cm/s CV VAS LAB RIGHT COMMON CAROTID ARTERY MID S 74 cm/s CV VAS LAB Right CCA prox talbot 10 cm/s CV VAS LAB Right CCA prox sys 66 cm/s CV VAS LAB RIGHT EXTERNAL CAROTID ARTERY D 9 cm/s CV VAS LAB Right eca sys 136 cm/s CV VAS LAB Right ICA/CCA sys 1.20 no units CV VAS LAB Right ICA dist talbot 27 cm/s CV VAS LAB Right ICA dist sys 87 cm/s CV VAS LAB Right ICA mid talbot 23 cm/s CV VAS LAB Right ICA mid sys 67 cm/s CV VAS LAB Right ICA prox talbot 12 cm/s CV VAS LAB Right ICA prox sys 38 cm/s CV VAS LAB Right vertebral sys 27 cm/s CV VAS LAB Left Prox Subclavian PSV 124 cm/s CV VAS LAB Right Prox Subclavian PSV 80 cm/s CV VAS LAB Right Bulb PSV 52 cm/s CV VAS LAB Right Bulb EDV 17 cm/s CV VAS LAB Right arm BP 86 mmHg CV VAS LAB Left arm BP 99 mmHg CV VAS LAB Left Bulb PSV 66 cm/s CV VAS LAB Left Bulb EDV 10 cm/s CV VAS LAB Anatomical Region Laterality Modality Vascular, Abdomen Ultrasound Narrative 10/24/2024 4:25 PM EDT Right ICA: There is mild calcific plaque. Left ICA: There is mild heterogeneous plaque. RIGHT. 1. There is atherosclerotic plaque in the carotid system as noted above. 2. There is less than 50% stenosis in the internal carotid artery based on Doppler velocity. 3. The subclavian artery has normal Doppler flow pattern. 4. Vertebral artery has normal antegrade flow. LEFT. 1. There is atherosclerotic plaque in the carotid system as noted above. 2. There is less than 50% stenosis in the internal carotid artery based on Doppler velocity. 3. The subclavian artery has normal Doppler flow pattern. 4. Vertebral artery has normal antegrade flow. Right Carotid The CCA has minimal heterogeneous plaque. The bifurcation has mild heterogeneous plaque. The ICA has mild calcific plaque. The ECA has minimal heterogeneous plaque. The subclavian artery waveforms are biphasic. Vertebral flow is antegrade. Left Carotid The CCA has minimal heterogeneous plaque. The bifurcation has mild heterogeneous plaque. The ICA has mild heterogeneous plaque. The ECA has minimal heterogeneous plaque. The subclavian artery waveforms are triphasic. Vertebral flow is antegrade. Principal Biostatistician Details A khanna scale, color and doppler analysis ultrasound was performed. During the study longitudinal and transverse views were obtained. Continuous wave doppler and pulsed wave doppler was performed. Overall the study quality was good. Eugene Schumacher NP CV VASCULAR PROCEDURES Final Res ult * ECG 12 lead (10/20/2024 11:50 AM EDT) Ventricular Rate ECG 66 BPM GEMUSE Atrial Rate 150 BPM GEMUSE QRS Duration 94 ms GEMUSE Q-T Interval 388 ms GEMUSE QTc 406 ms GEMUSE R [place] 9 degrees GEMUSE T [place] -82 degrees GEMUSE ECG Interpretation Atrial fibrillation Low voltage QRS Inferior infarct (cited on or before 02-FEB-2008) Anterior infarct (cited on or before 02-FEB-2008) Abnormal ECG When compared with ECG of 03-JUL-2016 16:25, Nonspecific T wave abnormality, worse in Inferior leads Confirmed by YOLETTE MEZA ([id number]) on 11/09/2024 12:53:24 PM GEMUSE 10/20/2024 11:0 9 AM EDT 11/09/2024 12:53 PM EDT Eugene Schumacher NP ECG ORDERABLES Edited Result - Final GEMUSE * Basic metabolic panel (08/16/2024 12:44 PM EDT) Sodium 139 133 - 145 mmol/L LAB CHEMISTRY METHOD 08/16/2024 2:[address] [facility] Potassium 4.8 3.5 - 5.5 mmol/L LAB CHEMISTRY METHOD 08/16/2024 2:[address] [facility] Chloride 108 96 - 110 mmol/L LAB CHEMISTRY METHOD 08/16/2024 2:[address] [facility] CO2 24 21 - 32 mmol/L LAB CHEMISTRY METHOD 08/16/2024 2:[address] [facility] Anion Gap 7 3 - 11 LAB CHEMISTRY METHOD 08/16/2024 2:[address] [facility] Glucose 90 70 - 100 mg/dL LAB CHEMISTRY METHOD 08/16/2024 2:[address] [facility] BUN 14 5 - 25 mg/dL LAB CHEMISTRY METHOD 08/16/2024 2:[address] [facility] Creatinine 1.16 0.70 - 1.30 mg/dL LAB CHEMISTRY METHOD 08/16/2024 2:[address] [facility] eGFR 65 >=60 mL/min/1. 73m2 LAB CHEMISTRY METHOD 08/16/2024 2:[address] [facility] Comment:Calculation based on the Chronic Kidney Disease Epidemiology Collaboration (CKD-EPI) equation refit without adjustment for race. BUN/Creatinine Ratio 12.1 LAB CHEMISTRY METHOD 08/16/2024 2:[address] [facility] Calcium 9.5 8.5 - 10.5 mg/dL LAB CHEMISTRY METHOD 08/16/2024 2:[address] [facility] Blood Venous blood specimen / Unknown Venipuncture / Unknown 08/16/2024 12:44 PM EDT 08/16/2024 1:37 PM EDT Eugene Schumacher NP LAB BLOOD ORDERABLES Final Resul t [facility] [address] [place] [address], * HM Urine Albumin Creatinine Ratio (03/13/2022) Pathologist [facility] Urine Albumin Creatinine Ratio abstracted Historical Provider HEALTH MAINTENANCE Final Result * (ABNORMAL) Hemoglobin A1c (03/13/2022) Pathologist [facility] Hemoglobin A1C 6.8(A) <=6.5 % Blood Venous blood specimen / Unknown Historical Provider LAB BLOOD ORDERABLES Alejandra l Result * Lipid panel (03/13/2022) LDL/HDL Ratio 3 0 - 4 Triglycerides 81 0 - 150 mg/dL Cholesterol 118 0 - 200 mg/dL HDL 44 >=40 mg/dL LDL Cholesterol 58 0 - 100 mg/dL Blood Venous blood specimen / Unknown Historical Provider LAB BLOOD ORDERABLES Alejandra l Result * Colonoscopy (12/29/2016) Colonoscopy no interpretation , abstracted Anatomical Region Laterality Modality Other Historical Provider HEALTH MAINTENANCE Final Result * Hepatitis C Screening (09/04/2016) Hepatitis C Screening abstracted Historical Provider HEALTH MAINTENANCE Final Result from Last 3 Months or Most Recently Relevant to Health Maintenance Insurance MEDICARE [facility] Care Teams Artificial Insemination Technician Relationship Specialty Start Date End Date Arlene Reeder MD [address] [place], [place] PCP - General Internal Medicine 10/09/21
== END 2024-12-13 13:05 | disposition home or self-care (01) ==
LOC: HO.BBR 13:04
PROVIDERS: PCP Family Medicine; Visit Provider Internal Medicine
DX: D45 Polycythemia vera (principal)
CPT/HCPCS: 85018; 99195

== ENCOUNTER 2024-12-22 12:14 | Outpatient (REF) | payer MEDICARE, OTHER, SELFPAY ==
[2024-12-22 17:01] LABS: Resp Syncy Virus RNA Qual PCR NEGATIVE (Negative); SARS COV2 PCR INHOUSE NEGATIVE (Negative)
== END 2024-12-22 12:15 | disposition home or self-care (01) ==
LOC: HO.LAB 12:14
PROVIDERS: PCP Family Medicine; Visit Provider Physician Assistant
DX: J06.9 Acute upper respiratory infection, unspecified (principal); R09.89 Other specified symptoms and signs involving the circulatory and respiratory systems; Z13.89 Encounter for screening for other disorder
CPT/HCPCS: 87637; 99202

== ENCOUNTER 2024-12-22 12:14 | Outpatient (AMB) | payer MEDICARE, OTHER, SELFPAY ==
--- OUTSIDE RECORDS SUMMARY | 2024-12-22 12:16 | XMS_ITS | Clinical Summary ---
Author Organization [address] [place] [address] Address [address] [place] [address] Phone Care Team Providers Care Moulder Operator Name Role Phone Arlene Reeder MD Primary [...] by mouth 1 (one) time each day. 3 Active semaglutide (Ozempic) 0.25 mg or 0.5 mg(2 mg/1.5 mL) injection pen Inject 1 mg under the skin every 7 (seven) days. Active multivitamin (MULTIPLE VITAMINS ORAL) Take 1 tablet by mouth 1 (one) time each day. Active pen needle, diabetic 32 gauge x 5/32 needle Use with Insulin pens 1 Active bumetanide (BUMEX) 1 mg tablet Take 1 tablet (1 mg total) by mouth every other day. 1 Active sacubitriL-vals naseem (Entresto) 97-103 mg per tablet Take 0.5 tablets by mouth 2 (two) times a day. 3 Active empagliflozin (Jardiance) 10 mg tablet Take 1 tablet (10 mg total) by mouth 1 (one) time each day. 2 Active spironolactone (ALDACTONE) 25 mg tablet Take 0.5 tablets (12.5 mg total) by mouth 1 (one) time each day. 90 tablet 1 4 Active carvediloL (COREG) 3.125 mg tablet Take 1 tablet (3.125 mg total) by mouth 2 (two) times a day with meals. 90 tablet 1 5 10/21/19 26 Active ammonium lactate (AMLACTIN) 12 % cream 1 Application every 12 hours. Active glimepiride (AMARYL) 4 mg tablet TK 1 T PO BID Oral for 30 Active tiotropium-olod ateroL (Stiolto Respimat) 2.5-2.5 mcg/actuation mist inhaler INHALE 2 PUFFS Q 24 H Inhalation for 30 Active Active Problems Problem Noted Date Diagnosed Date Dizziness 10/20/2024 Assessment & Plan (10/20/2024 11:50 AM EDT): Likely related to hypotensive readings at home. However for completeness I am going to update a carotid ultrasound bilaterally. Morbid obesity ([facility] V24, [facility] V28) 2024 Obstructive sleep apnea 10/17/2024 Coronary artery disease invo lving coronary bypass graft of [place] heart with angina pectoris ([facility] V24) 03/15/2024 Overview (03/15/2024): -Status post CABG 4 at [facility] in 1996 -Pharmacologic nuclear stress test from 07/18/2014 showed a large, moderate anteroseptal wall and apical infarct without ischemia that is unchanged from 2010 - Recent hospitalization for heart failure exacerbation in February 2024 at [facility] during which time he had minimally elevated high-sensitivity troponins which were likely demand mediated and not primary event - Cardiac cath on 02/15/2024 showed severe three-vessel [place] disease and left main disease; ZHANG to [...] Otherwise continue current aspirin, simvastatin. Ventricular tachycardia ([facility] V24, [facility] V2 8) 03/15/2024 Assessment & Plan (10/20/2024 [...] does start having tachycardia therapies. Aortic ectasia ([facility] V24) 12/23/2023 Overview (02/23/2024): -See echo under [...] V28) 05/06/2017 Chronic atrial fibrillation (CMS/HCC V24, CMS/HC C V28) 01/18/2017 Overview (03/15/2024): On Eliquis for anticoagulation Rate controlled Assessment & Plan (07/26/2024 9:34 AM EDT): Patient denies any abnormal nosebleeds or bleeding of any kind. Denies any recent falls. States he understands that if he falls and has a head strike he does need to present to the ER. Continue with Xarelto and carvedilol. Patient has an elevated [id number] score for heart failure, PVD, age, diabetes. Patient should remain anticoagulated. Assessment & Plan (04/27/2024 8:26 AM EST): Patient on beta-reuben, anticoagulated with Eliquis. Patient has a [id number] score of 6 he should remain anticoagulated. [...] (automatic cardioverter/defibrillator) pres ent 11/05/2016 Overview (04/27/2024): -[employer] device-generator change in October 2017 Assessment & Plan (10/20/2024 11:45 AM EDT): Continue with device checks. Assessment & Plan (04/27/2024 8:26 AM EST): Most recent device interrogation did not should deliver any shocks. Assessment & Plan (03/15/2024 4:55 PM EST): Continue device clinic follow-up. Unfortunately, his device does not have remote tracking of thoracic impedance as it predated thoracic impedance monitoring on [employer] devices. Adenomatous colon polyp 11/04/2016 Overview (02/23/2024): [...] of ejection fraction after a major anterior WA with persistent infarction by nuclear imaging even after revascularization -Status post AICD placement with a [employer] device for primary prevention -Most recently [...] However his echo was repeated during his [facility] hospitalization on 02/11/2024 and showed reduction [...] is leaving that he is going to [place] to visit family. I asked him to be very cautious about his sodium intake and weigh himself every day while in [place]. I still believe he is quite tenuous and he is still awaiting callback from advanced heart failure treatment and transplant at [facility]. Continue current Entresto, carvedilol, Jardiance. I hesitate to increase spironolactone to the full dose because of high normal potassium on most recent basic metabolic panel. COPD (chronic obstructive pu lmonary disease) ([facility] V24, [facility] V28) 09/03/2016 Intra-abdominal varices Hypertension Assessment & [...] Type Department Care Team Description 10/26/2024 Telephone [facility] Cardiology [facility] [address] [place] [phone] Edna Lawler [place] 10/24/2024 1:30 PM EDT Ancillary Procedure [facility] - [address] [place] [phone] 10/23/2024 9:15 AM EDT Ancillary Procedure [facility] - [address] [place] [phone] Dizziness 10/20/2024 11:10 AM EDT Office Visit [facility] Cardiology [facility] - [address] [place] [phone] Eugene Schumacher NP Chronic HFrEF (heart failure with reduced ejection fraction) ([facility] V24, [facility] V28) (Primary Dx); Aortic ectasia ([facility] V24); Chronic atrial fibrillation ([facility] V24, [facility] V28); Hypercholesterolemia ; Hypertension, unspecified type; Coronary artery disease involving coronary bypass graft of [place] heart with angina pectoris ([facility] V24); Ventricular tachycardia ([facility] V24, [facility] V28); Dizziness; AICD (automatic cardioverter/defibri llator) present 10/17/2024 10:15 AM EDT Office Visit [facility] - [place] [address] [place] [phone] Linda Paulino MD Chronic atrial fibrillation ([facility] V24, [facility] V28) (Primary Dx); Chronic obstructive pulmonary disease, unspecified COPD type ([facility] V24, [facility] V28); Morbid obesity ([facility] V24, CMS/HCC V28); Obstructive sleep apnea from Last 3 [...] Comments COPD (chronic obstructive pu lmonary disease) ([facility] V24, [facility] V28) 09/03/2016 DX:COPD (chronic o bstructive pulmonary disease) (HCC) Hypertension 11/04/2016 DX:Hypertension CAD (coronary artery disease) 11/04/2016 DX :CAD (coronary artery disease) Hypercholesterolemia 11/04/2016 DX:Hypercho lesterolemia Edema 09/03/2016 DX:Edema Arthritis 11/04/2016 DX:Arthritis Carpal tunnel syndrome 11/04/2016 DX:Carpal tunnel syndrome Gout 11/04/2016 DX:Gout DM (diabetes mellitus), type 2 with neurological complications (CMS/HCC V24, CMS/HCC V28) 11/04/2016 DX:DM [...] 2 with peripheral vascular complications (HCC) Old [place] (myocardial infarction) 11/09/2016 D X:Old [place] (myocardial infarction) DARYA on CPAP 11/04/2016 DX:DARYA [...] Description 01/16/2025 1:30 PM EDT Ancillary Procedure [facility] - [facility] [address] [facility] [address] [place] [address] 01/17/2025 10:30 AM EDT Office Visit [facility]monolgy - [place] [address] [place] [phone] Linda Paulino MD [address] [facility] [address] [place] [address] 01/31/2025 8:30 AM EDT Ancillary Procedure [facility] Cardiology [facility] - [facility] [address] [place] [address] 04/18/2025 10:20 AM EST Office Visit [facility] Cardiology [facility] - [facility] [address] [facility] [address] [place] [address] Cecy Meza MD [address] [place] [address] 08/14/2025 9:30 AM EDT Office Visit [facility] Hematology Oncology [address] [place] [phone] Cindy Moore MD [address] [place] [address] Health Maintenance Due Date Last Done Comments [...] this topic Medical Devices Implanted Type Area Air Defense Artillery Officer Device Identifier Shelf Expiration Date Model / Serial / Lot [id number] Implanted:10/08 (Quantity not on file) Cardiac ICD [employer]HY[employer] MGMT [id number] / [id number] / Procedures Procedure Name Priority Date/Time Associated [...] 1:26 PM EDT) Date Time Interrogation Session [id number] CV DEVICE CHECK Type Interrogation Session Remote Scheduled CV DEVICE CHECK Implantable Pulse Generator [employer] Artillery Officer BSX CV DEVICE CHECK Implantable Pulse Generator Type ICD CV DEVICE CHECK Implantable Pulse Generator Model D151 CV DEVICE CHECK Implantable Pulse Generator Serial Number [id number] CV DEVICE CHECK Implantable Pulse Generator Implant [...] waveforms are triphasic. Vertebral flow is antegrade. Gristmill Operator Details A khanna scale, color and doppler analysis ultrasound was performed. During the study longitudinal and transverse views were obtained. Continuous wave doppler and pulsed wave doppler was performed. Overall the study quality was good. us Eugene Schumacher NP CV VASCULAR PROCEDURES Final Res ult * ECG 12 lead (10/20/2024 11:50 AM EDT) Ventricular Rate ECG 66 BPM GEMUSE Atrial Rate 150 BPM GEMUSE QRS Duration 94 ms GEMUSE Q-T Interval 388 ms GEMUSE QTc 406 ms GEMUSE R [place] 9 degrees GEMUSE T [place] -82 degrees GEMUSE ECG Interpretation Atrial fibrillation Low voltage QRS Inferior infarct (cited on or before 02-FEB-2008) Anterior infarct (cited on or before 02-FEB-2008) Abnormal ECG When compared with ECG of 03-JUL-2016 16:25, Nonspecific T wave abnormality, worse in Inferior leads Confirmed by CECY MEZA ([id number]) on 11/09/2024 12:53:24 PM GEMUSE 10/20/2024 11:0 9 AM EDT 11/09/2024 12:53 PM EDT us Eugene Schumacher NP ECG ORDERABLES Edited Result - Final GEMUSE * Basic metabolic panel (08/16/2024 12:44 PM EDT) Sodium 139 133 - 145 mmol/L LAB CHEMISTRY METHOD 08/16/2024 2:42 PM EDT [facility] Potassium 4.8 3.5 - 5.5 mmol/L LAB CHEMISTRY METHOD 08/16/2024 2:42 PM T [facility] Chloride 108 96 - 110 mmol/L LAB CHEMISTRY METHOD 08/16/2024 2:42 PM [facility] CO2 24 21 - 32 mmol/L LAB CHEMISTRY METHOD 08/16/2024 2:42 PM [facility] Anion Gap 7 3 - 11 LAB CHEMISTRY METHOD 08/16/2024 2:42 PM T [facility] Glucose 90 70 - 100 mg/dL LAB CHEMISTRY METHOD 08/16/2024 2:42 PM [facility] BUN 14 5 - 25 mg/dL LAB CHEMISTRY METHOD 08/16/2024 2:42 PM [facility] Creatinine 1.16 0.70 - 1.30 mg/dL LAB CHEMISTRY METHOD [facility] e[facility] 65 >=60 mL/min/1. 73m2 LAB CHEMISTRY METHOD 08/16/2024 2:42 PM T [facility] Comment:Calculation based on the Chronic Kidney Disease Epidemiology Collaboration (CKD-EPI) equation refit without adjustment for race. BUN/Creatinine Ratio 12.1 LAB CHEMISTRY METHOD 08/16/2024 2:42 PM T [facility] Calcium 9.5 8.5 - 10.5 mg/dL LAB CHEMISTRY METHOD 08/16/2024 2:42 PM T [facility] Blood Venous blood specimen / Unknown Venipuncture / Unknown 08/16/2024 12:44 PM EDT 08/16/2024 1:37 PM EDT us Eugene Schumacher NP LAB BLOOD ORDERABLES Final Resul t [facility] [address] [place] [address], * HM Urine Albumin Creatinine Ratio (03/13/2022) Pathologist [facility] Urine Albumin Creatinine Ratio abstracted [facility] Provider HEALTH MAINTENANCE Final Result * (ABNORMAL) Hemoglobin A1c (03/13/2022) [facility] Hemoglobin A1C 6.8(A) <=6.5 % Blood Venous blood specimen / Unknown Result [facility] Provider LAB BLOOD ORDERABLES Alejandra l Result * Lipid panel (03/13/2022) [facility] LDL/HDL Ratio 3 0 - 4 Triglycerides 81 0 - 150 mg/dL Cholesterol 118 0 - 200 mg/dL HDL 44 >=40 mg/dL LDL Cholesterol 58 0 - 100 mg/dL Blood Venous blood specimen / Unknown Result [facility] Provider LAB BLOOD ORDERABLES Alejandra l Result * Colonoscopy (12/29/2016) [facility] Colonoscopy no interpretation , abstracted Anatomical Region Laterality Modality Other Result [facility] Provider HEALTH MAINTENANCE Final Result * Hepatitis C Screening (09/04/2016) [facility] Hepatitis C Screening abstracted Result [facility] Provider HEALTH MAINTENANCE Final Result from Last 3 Months or Most Recently Relevant to Health Maintenance Insurance MEDICARE [facility] Member Subscriber Plan / Payer (Ef fective 2012-Present) Name:DOM SHEIKH Relation to Subscriber:Spouse Name:DOM SHEIKH Date of :1947 Address: [address] [place] [address] [place] [address] Payer ID:[id number] Group ID:Not on file Type:Not on file Address: [place] [id number] Care Teams Moulder Operator Relationship Specialty Start Date End Date Arlene Reeder MD [address] [place] [address] PCP - General Internal Medicine 10/09/21
--- OUTSIDE RECORDS SUMMARY | 2024-12-22 12:16 | XMS_ITS | Clinical Summary ---
Author Organization [facility] Address [address] [place] [address] Care Team Providers Care Medical Doctor Nuclear Medicine Name Role Phone Astrid Reeder MD Primary [...] age to complete this topic Care Teams Medical Doctor Nuclear Medicine Relationship Specialty Start Date End Date Astrid Reeder MD [address] [place] [phone] PCP - General Family Medicine 10/23/21
--- OUTSIDE RECORDS SUMMARY | 2024-12-22 12:17 | XMS_ITS | Patient Health Record ---
Author Organization [facility] [place] Address [address] [facility] [place] [address] Care Team Providers Care Physician Office Nurse Name Role Phone Kirill Hurst MD, [facility] Primary Care Provi kamlesh Unavailable [facility] [place] Unavailable [phone] Allergies No Known Allergies Results Component Value [...] Problem Acquired hammer toe of right foot (33082749161779 05) Other hammer toe(s) (acquired), right foot (M20.41) Active confirmed Response to treatment,I mprovement Problem Other hammer toe(s) (acquired), left foot (M20.42) Active confirmed Response to treatment,I mprovement Problem Peripheral circulatory disorder associated with type 1 diabetes mellitus (595526298) Type 1 diabetes mellitus with diabetic peripheral angiopathy without gangrene (E10.51) Active confirmed Q7(A), Q8(2B), Q9(1B,2C) Vital Signs Blood pressure diastolic 73 mm Hg 09/22/2024 Height 5 ft 8 in in 09/22/2024 Blood pressure systolic 120 mm Hg 09/22/2024 Weight 204 lbs 09/22/2024 BMI 31.01 kg/m2 09/22/2024 Procedures Procedure Date Ordered Date Performed Result Body Sit e 87277-TSLHIJK NAIL, 6 OR MORE 03/21/2024 N/A 90242-KFTN SKIN LESIONS, OVER 4 03/21/2024 N/A 65518-HVBZPHV NAIL, 6 OR MORE 06/20/2024 N/A 52293-SPMN SKIN LESIONS, OVER 4 06/20/2024 N/A 19928-XYRCHWH NAIL, 6 OR MORE 09/22/2024 N/A 76159-ZZMN SKIN LESIONS, OVER 4 09/22/2024 N/A Encounters Encounter Location Date Provider Diagnosis [address] [address] 03/21/2024 [facility] [place] Type 1 diabetes mellitus with diabetic peripheral angiopathy without gangrene E10.51 ; Onychomycosis B35.1 ; Pain of toe of right foot M79.674 ; Pain of toe of left foot M79.675 ; Other hammer toe(s) (acquired), right foot M20.41 and Other hammer toe(s) (acquired), left foot M20.[address] [address] 06/20/2024 [facility] [place] Type 1 diabetes mellitus with diabetic peripheral angiopathy without gangrene E10.51 ; Onychomycosis B35.1 ; Pain of toe of right foot M79.674 and Pain of toe of left foot M79.[address] [address] 09/22/2024 [facility] [place] Type 1 diabetes mellitus with diabetic peripheral angiopathy without gangrene E10.51 ; Onychomycosis B35.1 ; Pain of toe of right foot M79.674 and Pain of toe of left foot M79.675 Assessments Encounter Date Diagnosis (ICD Code) Assessment Notes Treatment Notes Treatment Clinical Notes Section Notes 03/21/2024 Type 1 diabetes mellitus with diabetic [...] (ICD-10 - M20.42) Response to treatment,Impro vement 03/21/2024 Other 06/20/2024 Other 09/22/2024 Other Plan Of Treatment Pending Test Test Name Order Date 87915-BVGVQSN NAIL, 6 OR MORE 12/17/2017 97071-KLDQCTV NAIL, 6 OR MORE 03/18/2018 47930-TTAJNBV NAIL, 6 OR MORE 06/17/2018 40328-OUFZNMN NAIL, 6 OR MORE 09/13/2018 28668-ZMRCJYZ NAIL, 6 OR MORE 12/13/2018 73284-DFDUASL NAIL, 6 OR MORE 03/21/2019 05116-QKOADMY NAIL, 6 OR MORE 06/23/2019 83993-ZSPIAVU NAIL, 6 OR MORE 09/29/2019 93908-HVQYZVR NAIL, 6 OR MORE 12/29/2019 81367-JYZHUJX NAIL, 6 OR MORE 03/26/2020 60121-RCPASFB NAIL, 6 OR MORE 07/02/2020 69647-COZBHRQ NAIL, 6 OR MORE 09/24/2020 53221-QAYFRFA NAIL, 6 OR MORE 12/24/2020 83015-YTPDFDJ NAIL, 6 OR MORE 03/28/2021 83663-BDIRHGS NAIL, 6 OR MORE 06/27/2021 23861-KALCPLS NAIL, 6 OR MORE 09/30/2021 78732-DAGKDJK NAIL, 6 OR MORE 12/16/2021 88997-PDKGJTU NAIL, 6 OR MORE 03/17/2022 17177-HRMNEPQ NAIL, 6 OR MORE 06/16/2022 72963-DWANKLH NAIL, 6 OR MORE 09/15/2022 32267-PBEFBBY NAIL, 6 OR MORE 12/15/2022 52400-ZKZGCTC NAIL, 6 OR MORE 03/16/2023 93563-KRSESXW NAIL, 6 OR MORE 06/18/2023 75299-EICZWQI NAIL, 6 OR MORE 09/21/2023 54885-UPXOFLX NAIL, 6 OR MORE 12/21/2023 68405-OYSSQNK NAIL, 6 OR MORE 03/21/2024 70509-BLFQTYW NAIL, 6 OR MORE 06/20/2024 92494-VDSHVCS NAIL, 6 OR MORE 09/22/2024 94822-QEGJMDV NAIL, 1-5 08/24/2017 45219-UXFLDZT NAIL, 1-5 11/24/2016 31450-BVQSNXA NAIL, 1-5 02/23/2017 67535-FFIGCGQ NAIL, 1-5 05/25/2017 62740-SNRT SKIN LESIONS, OVER 4 11/25/19 17 23359-WDXF SKIN LESIONS, OVER 4 02/24/20 17 84501-NXLD SKIN LESIONS, OVER 4 05/25/19 18 67238-TTDM SKIN LESIONS, OVER 4 08/25/19 18 76107-FTGU SKIN LESIONS, OVER 4 06/17/19 19 85254-RLMA SKIN LESIONS, OVER 4 03/18/20 18 29937-TWNE SKIN LESIONS, OVER 4 09/25/19 21 22589-UBGU SKIN LESIONS, OVER 4 07/02/19 21 54138-IPBD SKIN LESIONS, OVER 4 03/26/20 20 88098-UWWT SKIN LESIONS, OVER 4 12/29/19 20 50478-DAOJ SKIN LESIONS, OVER 4 06/23/19 20 16544-AYNU SKIN LESIONS, OVER 4 09/29/19 20 47436-GAUS SKIN LESIONS, OVER 4 03/21/20 19 33887-LAPX SKIN LESIONS, OVER 4 12/14/19 19 04807-IQXX SKIN LESIONS, OVER 4 09/14/19 19 31496-PTOH SKIN LESIONS, OVER 4 09/23/19 25 53129-VRFI SKIN LESIONS, OVER 4 06/20/19 25 50604-AUUY SKIN LESIONS, OVER 4 03/21/20 24 93312-RZPL SKIN LESIONS, OVER 4 12/21/19 24 76299-KPLE SKIN LESIONS, OVER 4 09/21/19 24 13785-YEKM SKIN LESIONS, OVER 4 06/18/19 24 37979-ZINI SKIN LESIONS, OVER 4 03/16/20 23 51583-AWSX SKIN LESIONS, OVER 4 12/16/19 23 82571-XTLB SKIN LESIONS, OVER 4 09/16/19 23 48179-SZJN SKIN LESIONS, OVER 4 06/16/19 23 76132-SNMH SKIN LESIONS, OVER 4 03/17/20 22 19343-JSQB SKIN LESIONS, OVER 4 12/17/19 22 54277-VKZT SKIN LESIONS, OVER 4 10/01/19 22 82932-WQYB SKIN LESIONS, OVER 4 06/27/19 22 52322-OWBN SKIN LESIONS, OVER 4 03/28/20 21 64941-NYIS SKIN LESIONS, OVER 4 12/25/19 21 55778-NBRG SKIN LESIONS, OVER 4 12/18/19 18 X1487-JIIACOHD DYSTROPHIC NAILS ANY # M3405-AQIJTPAA DYSTROPHIC NAILS ANY # I3309-JSXZHBPZ DYSTROPHIC NAILS ANY # E5483-ZLUGWXIJ DYSTROPHIC NAILS ANY # Next Appt Details Provider Name:[facility] [place] Becca , 01/02/2025 11:00:00 AM, [address] [place], [address], Insurance Providers Payer Name Payer Address Payer Phone Subscriber Number Group Number Insured Name Patient Relationship to Insured Coverage Start Date Coverage End Date Medicare [facility] [address] [place] [address] [id number] Dom Sheikh Self - patient is the insured for [employer] [address] [place] [address] [phone] [id number] Dom Sheikh Self - patient is the [...]
[2024-12-22 12:38] VITALS: BP 110/58; PULSE 82; TEMP 36.6; O2SAT 98; BMI 30.9
--- NOTE | 2024-12-22 12:38 | AM.OFFWIN_ITS ---
Intake Vital Signs 12/22/24 12:38 Height 5 ft 8 in Weight 203 lb BMI 30.9 BP 110/58 L Blood Pressure Location Lt brachial Position Sitting Pulse 82 Pulse Source Pulse Oximeter Temp 97.8 F Temp Source Oral Pulse Oximetry (%) 98 Oxygen Delivery Method Room Air Intake Visit Reasons: EP-sore throat Intake Note: presents with non productive cough, sore throat- no pain with swallowing food or beverages Patient Tobacco Use Status: Never used Tobacco Allergies No Known Allergies Allergy (Verified 12/22/24 12:42) Do you need a note to return to daycare/school/sports/work: No HPI HPI Comments History of Present Illness Details History - The patient is a 79-year-old male pres enting with a scratchy throat and cough. - The scratchy throat began last night a nd is more pronounced at night. - The cough is associated with the throa t irritation and does not originate from the chest. - No fever was reported, although the pa tient felt warm last night. - Denies ear pain or sinus pain, shortne ss of breath or wheezing. - The patient has a history of atrial fi brillation and is on Eliquis. - The patient generally avoids over-the- counter medications but occasionally uses them. Physical Exam General: Cooperative, healthy appearing, comfortable and no acute distress Orientation/consciousness: Patient oriented x3 Limitations: No limitations Head: Normal to inspection Ears: Hearing grossly normal bilaterally, external ears normal, wears hearing aids Nose: Normal external nose present, Normal nares present and No nasal discharge present Face and sinus: Normal facial exam and Yes sinuses nontender Mouth: Normal oral and palatal mucosa present and moist mucous membranes Throat: Yes tonsils normal, Yes uvula midline. Posterior oropharynx erythema, no exudates Eyes: Appearance normal, both eyes and all related structures Neck: Normal visual inspection, full ROM Respiratory: Clear to auscultation bilaterally. Normal respiratory effort, able to speak in complete sentences, not Actively coughing, no respiratory distress, not tachypneic, no tripod positioning and no use of accessory muscles Cardiovascular: Regular rate and rhythm. Normal S1 and S2 Skin: No rashes or lesions noted Neuro: Patient oriented x3 Extremities: Normal to inspection and Yes no clubbing, cyanosis or edema PFSH Social History Patient Tobacco Use Status: Never used Tobacco Review of Systems Const All systems reviewed & are unremarkable except as noted in HPI and below Physical Exam Vital Signs: Last Vital Signs Temp 97.8 F 12/22/24 12:38 Pulse 82 12/22/24 12:38 BP 110/58 L 12/22/24 12:38 Pulse Ox 98 12/22/24 12:38 Oxygen Delivery Method Room Air 12/22/24 12:38 BMI result Body Mass Index 30.9 Assessment & Plan Assessment & Plan (1) URI, acute: Code(s): J06.9 - Acute upper respiratory infection, unspecified Plan: Plan - VSS, pt well appearing and PE unremarkable. - Conducted nasal swab for flu, COVID-19, and RSV testing; results to be communicated via phone or portal. - Recommended increased fluid intake and warm salt water rinses for throat discomfort. - Advised use of cdju-ciy-uvosemi medications for symptoms. - Suggested allergy medication as a potential aid for throat irritation. - Instructed to avoid contact with others if COVID-19 positive. Patient was informed and verbally consented to the use of an ambient scribe for clinic note documentation during this visit Orders: Orders SARS-CoV2/FLU/RSV Today R09.89 - Other specified symptoms and signs involving the circulatory and respiratory systems Coding Level of Care Code New Pt Level 3 (00235) Diagnoses URI, acute J06.9
== END 2024-12-22 13:35 | disposition home or self-care (01) ==
PROVIDERS: PCP Family Medicine; Visit Provider Physician Assistant
DX: J06.9 Acute upper respiratory infection, unspecified (principal)

== ENCOUNTER 2025-03-14 15:15 | Outpatient (AMB) | payer MEDICARE, OTHER, SELFPAY ==
--- NOTE | 2025-03-14 15:34 | AM.OFFWIN_ITS ---
Intake Vital Signs 03/14/25 15:37 Height 5 ft 8 in Weight 204 lb BMI 31.0 BP 106/60 Blood Pressure Location Lt brachial Position Sitting Pulse 74 Pulse Source Pulse Oximeter Temp 97.7 F Temp Source Oral Pulse Oximetry (%) 100 Oxygen Delivery Method Room Air Intake Visit Reasons: ep right hand swollen Intake Note: pt presents with right hand swelling up to wrist since yesterday-denies injury, pt recalls minimal pain to RT a couple weeks ago an arnica cream relieved it. Patient Tobacco Use Status: Never used Tobacco Allergies No Known Allergies Allergy (Verified 03/14/25 15:40) Do you need a note to return to daycare/school/sports/work: No HPI HPI Comments History of Present Illness Details History of Present Illness - The patient is a 80-year-old male pres enting with swelling and numbness of the right hand. - The swelling began with mild discomfor t in the thumb and worsened over a day. - The patient reports numbness and wrist pain extending up the arm. - The patient reports a constant pain in the right hand and thumb with radiation up into the wrist. - Pain is worse with movement. - No history of trauma or insect bites w as noted. - The patient has a history of gout and is on medication for it. - The patient took Tylenol for the pain but has not tried other interventions. - He denies fever, chills, bites, falls, or recent trauma. - He is right hand dominant. - He also has carpal tunnel. Physical Exam General: Cooperative, healthy appearing, comfortable, no acute distress and well developed Orientation: Patient oriented x3 Respiratory: Normal respiratory effort and able to speak in complete sentences. Clear to auscultation bilaterally Cardiovascular: Regular rate and rhythm. Normal S1 and S2. Pulses are 2+ on the UE. Skin: No rashes or lesions noted. No erythema or warmth noted. No bruises noted. Neuro: Sensation is intact. Extremities: Swelling and tenderness noted in the right hand. No erythema noted. FROM of the fingers, thumb, and wrist on the right. TTP of the thumb at the MCP joint. Patient was informed and verbally consented to the use of an ambient scribe for clinic note documentation during this visit. REPLACED BY [facility] Social History Patient Tobacco Use Status: Never used Tobacco Review of Systems Const All systems reviewed & are unremarkable except as noted in HPI and below Physical Exam Vital Signs: Last Vital Signs Temp 97.7 F 03/14/25 15:37 Pulse 74 03/14/25 15:37 BP 106/60 03/14/25 15:37 Pulse Ox 100 03/14/25 15:37 Oxygen Delivery Method Room Air 03/14/25 15:37 BMI result Body Mass Index 31.0 Assessment & Plan Assessment & Plan (1) Swelling of right hand: Code(s): M79.89 - Other specified soft tissue disorders Plan Most likely gout vs arthritis vs carpal tunnel vs sprain vs fracture plan - rest, ice and elevation - wear splint for comfort and immobilization - will order a uric acid level - will also order an x-ray - prednisone for 5 days - continue with allopurinol - follow up with PCP Orders: Orders XR hand RT min 3V Today M79.89 - Other specified soft tissue disorders Uric Acid Today M79.89 - Other specified soft tissue disorders Medications: New prednisone 40 mg (2 x 20 mg) PO DAILY 10 tabs 0RF 5 days Coding Level of Care Code Est Pt Level 4 (74705) Diagnoses Swelling of right hand M79.89
[2025-03-14 15:37] VITALS: BP 106/60; PULSE 74; TEMP 36.5; O2SAT 100; BMI 31.0
--- OUTSIDE RECORDS SUMMARY | 2025-03-14 18:12 | XMS_ITS | Data Portability ---
Author Organization [place] [facility], Allergy Address [address] [place] [address] Care Team Providers Care Security Control Assessor Name Role Phone PADMAJA COLLINS Primary Care Provider Assessment Encounter Date Assessment Date Assessment LastModified [...] Organization Details Recorded Time Bleeding from nose 552758858 Active 2022 Epistaxis ; Note: Date Diagnosed : 05/14/2022 12:05 PM (R04.0) Not Available [facility] 4 02:18:09 Long-term current use of anticoagu lant 192558318 Active 2022 nursing home (current) use of anticoagu lants; Note: Date Diagnosed : 02/13/2015 8:40 AM (Z79.01) Not Available [facility] 4 02:17:45 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 491196194 Active 2022 Coagulati on defects: Other hemorrhag ic disorder due to intrinsic circulati ng anticoagu lants, antibodie s, or inhibitor s; Note: Date Diagnosed : 02/13/2015 8:41 AM () Not Available [facility] 4 02:17:48 Epistaxis Active 2022 Epistaxis ; Note: Date Diagnosed : 02/13/2015 8:41 AM () Not Available [facility] 4 02:17:55 Long-term current use of antiplate let drug 11345464032 4101 Active 2022 nursing home (current) use of antithrom botics/an tiplatele ts; Note: Date Diagnosed : 11/27/2016 12:51 PM (Z79.02) Not Available [facility] 4 02:17:51 Anterior epistaxis 159048194 Active 2024 NALINI WILSON PA-C [address] [place] [address], [place], [address] , [facility] 21:00:16 Problem Notes None recorded. Procedures Surgical History Date Name Laterality Status Provider Name and Address Organization Details Recorded Time Epistaxis Simple Nasal Cautery Left completed NALINI WILSON PA-C [address] [facility] [address], [place], [address], [facility] - [facility] 05/11/2024 09:53:00 extraction of wisdom tooth completed Gloria Mello [facility] 05/11/2024 08:48:25 Imaging Results None recorded. [...] mg tablet 05/11 completed Medicati on ID: [id number] D uration Value: 90 Brand Name: glimepir [...] mg tablet 05/11 completed Medicati on ID: [id number] B rand Name: Entresto Send Method: E-Prescr [...] Updated DateTime 05/26/2024 175.26 cm 30.9 kg/m2 94540.81 g Prachi Villalobos [place] - [facility] 05/26/2024 09:09:21 Social History None recorded. [...] Disorder N Anesthesia Complications N Heart Attack ([place]) Y Other Skin Condition N Diabetes Y [...] Diagnosis SNOMED-CT Code Diagnosis ICD10 Code Diagnosis IMO Codes Diagnosis Note [id number] NALINI WILSON PA-C [facility] [address] [place] [address] 05/11/2024 08:46:34 05/11/2024 09:48:01 Bleeding from nose 774622085 R04.0 recurrent left anterior epistaxis Long-term current use of anticoagulant 003368799 Z79.01 Long-term current use of antiplatelet drug 0598623597 81892 Z79.02 [id number] NALINI WILSON PA-C [facility] [address] [place] [address] 05/26/2024 09:00:48 05/26/2024 09:16:44 Long-term current use of anticoagulant 280374430 Z79.01 Long-term current use of antiplatelet drug 7549701184 68543 Z79.02 Anterior epistaxis 61248 4002 R04.0 left, resolved Health Concerns Section Related Observation LastModified by Organization Detai ls LastModified Time None Recorded Concern Status LastModified by Organization Details LastModified Time None Recorded Advance Directives Directive None Recorded Payers Insurance Date Sequence Insurance Name Policy Number Policy Kim Covered Member ID Kim Member ID Guarantor Name 06/21/2024 2 FOR LIFE ( - MEDICARE SUPPLEMENT) Dom Mosqueda Kori [id number] Dom Mosqueda Kori 05/11/2024 1 MEDICARE B-MS: [email or web address] [facility] Dom Sheikh [id number] Dom Mosqueda Sheikh 05/25/2024 2 FOR LIFE () Dom Mosqueda Kori [id number] Dom Mosqueda Kori 05/26/2024 1 MEDICARE B-MS: [email or web address] Dom Sheikh [id number] Dom Mosqueda Sheikh 05/11/2024 2 FOR LIFE ( - MEDICARE SUPPLEMENT) Dom Mosqueda Kori [id number] Dom Mosqueda Kori Notes Date Note Type Note Provider Name and Address Organization Details Recorded Time 05/11/2024 text/html ROS as noted in the [facility] 79-year-old male with DARYA and CHF presents [...] recovering from acute URI. KERRI ARAUZ MD [address] [facility],[place] [address], [place], [address], [place] - [facility] 05/11/2024 17:40:37 05/26/2024 text/html ROS as noted in the [facility] 79-year-old with history of recurrent left epistaxis and CHF on Eliquis and Aspirin presents for reevaluation of left epistaxis. He denies epistaxis since cautery two weeks ago. He has been recovering from a common cold and endorses frequent nose blowing. He has been using daily nasal saline. KERRI ARAUZ MD [address] [facility],[place] [address], [place], [address], [place] [facility] 05/30/2024 08:02:55
--- OUTSIDE RECORDS SUMMARY | 2025-03-14 18:12 | XMS_ITS | Patient Health Record ---
Author Organization [facility] [place] Address [address] [place] [address] Care Team Providers Care Structural Steel Ironworker Name Role Phone Kirill Hurst MD, [facility] Primary [facility] Provi kamlesh Unavailable Good Hudson Unavailable [phone] Allergies No Known Allergies Results Component Value Reference Range Notes HEMOGLOBIN A1C (GLYCOHEMOGLO BIN) Reviewed date:09/22/2024 09:23:34 AM Interpretation: Performing Lab: Notes/Report: HEMOGLOBIN A1C % (HH) 7.4 Reason For Referral No Information Medications Medication SIG (Take, Route, Frequency, Duration) Notes Start Date End Date Status Ozempic (1 MG/DOSE) 4 MG/3ML Subcutaneous; Duration: 84 Days Active Jardiance 10 MG Oral; Duration: 90 Days Active Trulicity Not-Taking Glimepiride 4 MG TK 1 T PO BID Oral; Duration: 30 Not-Taking metFORMIN HCl 500 MG 1 tablet with meals Orally Twice a day Active Lantus 20units Subcutaneous once a day Active Stiolto Respimat 2.5-2.5 MCG/ACT INHALE 2 PUFFS Q 24 H Inhalation; Duration: 30 Not-Taking Multivitamin Active Simvastatin 20 MG 1 tablet in the even ing Orally Once a day Active Spironolactone Activ e Vitamin D3 Active Ammonium Lactate 12 % 1 application Externally Twice a day; Duration: 30 days Active Aspirin 81 MG 1 tablet Orally Once a day Active Allopurinol 300 MG Orally Once a day Active Anoro Ellipta Active Bumetanide 1 MG 1 tablet Orally Once a day Active Carvedilol 25 MG Orally Act sarah Entresto Active Extra Depth Orthopedic Shoes, (1) Pair With (3) Pair Custom Heat Molded Multidensity Innersoles Dx: IDDM/PVD(E10.51), Hammertoe Foot Deformity, B/L(M20.41,M20.42), Preulcerative Skin Lesion(s)(L85.1) Wear Daily; Duration: 365 days Active Eliquis 5 MG Orally Active Immunizations Vaccine Route Administration Date Status Comme nts Influenza Unknown 05/13/2017 Administered Influenza Unknown 03/18/2018 Administered Influenza Unknown 01/24/2022 Administered Influenza Unknown 02/10/2024 Administered Pneumococcal Unknown 01/26/2020 Administered COVID-19 Moderna [...] Problem Acquired hammer toe of right foot (17961910384868 05) Other hammer toe(s) (acquired), right foot (M20.41) Active confirmed Response to treatment,I mprovement Problem Acquired hammer toe of left foot (88903287709246 03) Other hammer toe(s) (acquired), left foot (M20.42) Active confirmed Response to treatment,I mprovement Problem Peripheral circulatory disorder associated with type 1 diabetes mellitus (091053049) Type 1 diabetes mellitus with diabetic peripheral angiopathy without gangrene (E10.51) Active confirmed Q7(A), Q8(2B), Q9(1B,2C) Vital Signs Blood pressure diastolic 65 mm Hg 01/02/2025 Height 5 ft 8 in in 01/02/2025 Blood pressure systolic 128 mm Hg 01/02/2025 Weight 204 lbs 01/02/2025 BMI 31.01 kg/m2 01/02/2025 Procedures Procedure Date Ordered Date Performed Result Body Sit e 13129-MMEOHFC NAIL, 6 OR MORE 03/21/2024 N/A 89610-RXBX SKIN LESIONS, OVER 4 03/21/2024 N/A 42717-PXMJAKH NAIL, 6 OR MORE 06/20/2024 N/A 34824-WBEY SKIN LESIONS, OVER 4 06/20/2024 N/A 26529-LIVUXQP NAIL, 6 OR MORE 09/22/2024 N/A 93775-ULUH SKIN LESIONS, OVER 4 09/22/2024 N/A 53633-TADVBAB NAIL, 6 OR MORE 01/02/2025 N/A 95888-NXCX SKIN LESIONS, OVER 4 01/02/2025 N/A Encounters Encounter Location Date Provider Diagnosis [address] [address] 03/21/2024 Good Becca Type 1 diabetes mellitus with diabetic peripheral angiopathy without gangrene E10.51 ; Onychomycosis B35.1 ; Pain of toe of right foot M79.674 ; Pain of toe of left foot M79.675 ; Other hammer toe(s) (acquired), right foot M20.41 and Other hammer toe(s) (acquired), left foot M20.[address] [address] 06/20/2024 Good Becca Type 1 diabetes mellitus with diabetic peripheral angiopathy without gangrene E10.51 ; Onychomycosis B35.1 ; Pain of toe of right foot M79.674 and Pain of toe of left foot M79.[address] [address] 09/22/2024 Goodtha Hudson Type 1 diabetes mellitus with diabetic peripheral angiopathy without gangrene E10.51 ; Onychomycosis B35.1 ; Pain of toe of right foot M79.674 and Pain of toe of left foot M79.[address] [address] 01/02/2025 Good Becca Type 1 diabetes mellitus with diabetic peripheral angiopathy without gangrene E10.51 ; Onychomycosis B35.1 ; Pain of toe of right foot M79.674 ; Pain of toe of left foot M79.675 ; Other hammer toe(s) (acquired), right foot M20.41 and Other hammer toe(s) (acquired), left foot M20.42 Assessments Encounter Date Diagnosis (ICD Code) Assessment [...] - E10.51) 09/22/2024 Onychomycosis (ICD-10 - B35.1) 01/02/2025 Type 1 diabetes mellitus with diabetic peripheral angiopathy without gangrene (ICD-10 - E10.51) 01/02/2025 Onychomycosis (ICD-10 - B35.1) 01/02/2025 Pain of toe of right foot (ICD-10 - M79.674) 06/20/2024 Pain of toe of right foot (ICD-10 - M79.674) 09/22/2024 Pain of toe of right foot (ICD-10 - M79.674) 03/21/2024 Pain of toe of right foot (ICD-10 - M79.674) 03/21/2024 Pain of toe of left foot (ICD-10 - M79.675) 09/22/2024 Pain of toe of left foot (ICD-10 - M79.675) 06/20/2024 Pain of toe of left foot (ICD-10 - M79.675) 01/02/2025 Pain of toe of left foot (ICD-10 - M79.675) 01/02/2025 Other hammer toe(s) (acquired), right foot (ICD-10 - M20.41) Patient Educated with: DIABETIC FOOT CARE INSTRUCTIONS.p df (DIABETIC FOOT CARE INSTRUCTIONS.p df) 03/21/2024 Other hammer toe(s) (acquired), right foot (ICD-10 - M20.41) Response to treatment,Impro vement 03/21/2024 Other hammer toe(s) (acquired), left foot (ICD-10 - M20.42) Response to treatment,Impro vement 01/02/2025 Other hammer toe(s) (acquired), left foot (ICD-10 - M20.42) 03/21/2024 Other 06/20/2024 Other 09/22/2024 Other Plan Of Treatment Pending Test Test Name Order Date 45819-UESICJX NAIL, 6 OR MORE 12/17/2017 60965-YSEPLYI NAIL, 6 OR MORE 03/18/2018 95858-HZCOYMP NAIL, 6 OR MORE 06/17/2018 79105-WIGFJCU NAIL, 6 OR MORE 09/13/2018 52623-NKIAFDA NAIL, 6 OR MORE 12/13/2018 67275-XPTXDFX NAIL, 6 OR MORE 03/21/2019 83365-INNXOOR NAIL, 6 OR MORE 06/23/2019 92755-REHYWLI NAIL, 6 OR MORE 09/29/2019 74402-AMZSVZJ NAIL, 6 OR MORE 12/29/2019 04622-UXABONB NAIL, 6 OR MORE 03/26/2020 01036-XUAKKIY NAIL, 6 OR MORE 07/02/2020 28640-LMQAEZW NAIL, 6 OR MORE 09/24/2020 38394-RFQYWWV NAIL, 6 OR MORE 12/24/2020 56490-WXSTDFB NAIL, 6 OR MORE 03/28/2021 86038-XSJUKLZ NAIL, 6 OR MORE 06/27/2021 29361-BKFCGJF NAIL, 6 OR MORE 09/30/2021 88270-LWLLKMY NAIL, 6 OR MORE 12/16/2021 03853-GYBXSDR NAIL, 6 OR MORE 03/17/2022 70903-OBGHRPK NAIL, 6 OR MORE 06/16/2022 03622-REGZNCJ NAIL, 6 OR MORE 09/15/2022 69026-JMSYSFP NAIL, 6 OR MORE 12/15/2022 44385-KPHVCAM NAIL, 6 OR MORE 03/16/2023 77238-QULEZVQ NAIL, 6 OR MORE 06/18/2023 81022-BAXSUWD NAIL, 6 OR MORE 09/21/2023 32358-AGYGIJU NAIL, 6 OR MORE 12/21/2023 09083-MPTUGBD NAIL, 6 OR MORE 03/21/2024 60577-WBNUEPE NAIL, 6 OR MORE 06/20/2024 35456-PWURTOT NAIL, 6 OR MORE 09/22/2024 84328-FHGFOHZ NAIL, 6 OR MORE 01/02/2025 27683-FCCBCGZ NAIL, 1-5 08/24/2017 76908-TWBUUVM NAIL, 1-5 11/24/2016 15070-SMHVSCN NAIL, 1-5 02/23/2017 03790-XRSZHRU NAIL, 1-5 05/25/2017 29802-SMXL SKIN LESIONS, OVER 4 11/25/19 17 24473-VWCS SKIN LESIONS, OVER 4 02/24/20 17 23511-EOWX SKIN LESIONS, OVER 4 05/25/19 18 96516-HPSU SKIN LESIONS, OVER 4 08/25/19 18 16690-KXAU SKIN LESIONS, OVER 4 06/17/19 19 59152-GFHQ SKIN LESIONS, OVER 4 03/18/20 18 38622-SXHA SKIN LESIONS, OVER 4 09/25/19 21 40216-PZSB SKIN LESIONS, OVER 4 07/02/19 21 83404-YAUV SKIN LESIONS, OVER 4 03/26/20 20 25693-ZLUL SKIN LESIONS, OVER 4 12/29/19 20 91507-AFTJ SKIN LESIONS, OVER 4 06/23/19 20 61463-PNSL SKIN LESIONS, OVER 4 09/29/19 20 90693-HSMR SKIN LESIONS, OVER 4 03/21/20 19 77532-YMSL SKIN LESIONS, OVER 4 12/14/19 19 74875-IQFF SKIN LESIONS, OVER 4 09/14/19 19 11461-YAYD SKIN LESIONS, OVER 4 09/23/19 25 21484-CHEG SKIN LESIONS, OVER 4 06/20/19 25 99005-TBCK SKIN LESIONS, OVER 4 03/21/20 24 67180-IUYE SKIN LESIONS, OVER 4 12/21/19 24 27034-YSLE SKIN LESIONS, OVER 4 09/21/19 24 00387-TPQH SKIN LESIONS, OVER 4 06/18/19 24 32389-FSJL SKIN LESIONS, OVER 4 03/16/20 23 67384-CLPD SKIN LESIONS, OVER 4 12/16/19 23 28431-TGZW SKIN LESIONS, OVER 4 05/09/20 23 81936-JCDK SKIN LESIONS, OVER 4 06/16/19 23 52868-QYOD SKIN LESIONS, OVER 4 03/17/20 22 77566-SCFG SKIN LESIONS, OVER 4 12/17/19 22 02021-KSEV SKIN LESIONS, OVER 4 10/01/19 22 91154-BPLI SKIN LESIONS, OVER 4 06/27/19 22 95696-EMKU SKIN LESIONS, OVER 4 03/28/20 21 72132-QQFF SKIN LESIONS, OVER 4 12/25/19 21 52583-KJPI SKIN LESIONS, OVER 4 01/03/20 25 02270-DDJA SKIN LESIONS, OVER 4 12/18/19 18 A5771-NILXDQSO DYSTROPHIC NAILS ANY # Q0034-RSXNYERO DYSTROPHIC NAILS ANY # M0115-LKLFOIVR DYSTROPHIC NAILS ANY # U0315-XQXINTDP DYSTROPHIC NAILS ANY # Next Appt Details Provider Name:Good Hudson , 04/13/2025 09:30:00 AM, [address] [place], [address], Insurance Providers Payer Name Payer Address Payer Phone Subscriber Number Group Number Insured Name Patient Relationship to Insured Coverage Start Date Coverage End Date Medicare National [facility] [address] [place] [address] [phone] [id number] Dom Sheikh Self - patient is the insured for Life [address] [place] [id number] [phone] [id number] Dom Sheikh Self - patient is the [...]
--- OUTSIDE RECORDS SUMMARY | 2025-03-14 18:13 | XMS_ITS | Clinical Summary ---
Author Organization [facility] Address [address] [place] [address] Care Team Providers Care Supervisor Slate Splitting Name Role Phone Astrid Reeder MD Primary [...] age to complete this topic Care Teams Supervisor Slate Splitting Relationship Specialty Start Date End Date Astrid Reeder MD [address] [place] [phone] PCP - General Family Medicine 10/23/21
== END 2025-03-14 16:23 | disposition home or self-care (01) ==
PROVIDERS: PCP Family Medicine; Visit Provider Physician Assistant Medical
DX: M79.89 Other specified soft tissue disorders (principal)

== ENCOUNTER 2025-03-14 15:15 | Outpatient (REF) | payer MEDICARE, OTHER, SELFPAY ==
--- NOTE | ~2025-03-14 | XR_ITS ---
EXAMINATION: XR HAND, RIGHT CLINICAL INFORMATION: M79.89 - Other specified soft tissue disorders COMPARISON: None available. TECHNIQUE: PA, lateral, and oblique views of the right hand. FINDINGS: There is narrowing of the DIP joints of the second and third digits with marginal osteophytes and degenerative cysts. There are circumscribed lucency with sclerotic margin in the radial base of middle phalanx of the second digit, likely degenerative. There are marginal osteophytes and mild narrowing of the adjacent joint. There is focal lucency with sclerotic margin in the palmar head radial side of the third metacarpal. There are marginal sites involving the IP joint of thumb and the first carpal metacarpal joint. XR/XR hand RT min 3V IMPRESSION: Osteoarthritis Electronically signed by: Augustus Simpson MD 03/14/2025 04:36 PM EST
--- OUTSIDE RECORDS SUMMARY | 2025-03-14 18:56 | XMS_ITS | Clinical Summary ---
Author Organization [address] [place] [address] [place] [phone] Phone Care Team Providers Care Coil Tester Name Role Phone Arlene Reeder MD Primary Care Provi kamlesh Allergies No known active allergies Medications allopurinoL (ZYLOPRIM) 300 mg tablet Take 1 tablet (300 mg total) by mouth daily. Active aspirin 81 mg EC tablet Take 1 tablet (81 mg total) by mouth daily. Active cholecalcifero l (VITAMIN D-3) 25 mcg (1,000 unit) tablet [...] by mouth every night at bedtime. Active semaglutide (Ozempic) 0.25 mg or 0.5 mg(2 mg/1.5 mL) injection pen Inject 1 mg under the skin every 7 (seven) days. Active multivitamin (MULTIPLE VITAMINS ORAL) Take 1 tablet by mouth 1 (one) time each day. Active pen needle, diabetic 32 gauge x 32 needle Use with Insulin pens 06/27/19 21 Active bumetanide (BUMEX) 1 mg tablet Take 1 tablet (1 mg total) by mouth every other day. 03/17/20 21 Active sacubitriL-oz sartan (Entresto) 97-103 mg per tablet Take 0.5 tablets by mouth 2 (two) times a day. 02/26/20 23 Active empagliflozin (Jardiance) 10 mg tablet Take 1 tablet (10 mg total) by mouth 1 (one) time each day. 06/30/19 22 Active spironolactone (ALDACTONE) 25 mg tablet Take 0.5 tablets (12.5 mg total) by mouth 1 (one) time each day. 90 tablet 1 04/27/20 24 Active carvediloL (COREG) 3.125 mg tablet Take 1 tablet (3.125 mg total) by mouth 2 (two) times a day with meals. 90 tablet 1 10/21/19 25 026 Active ammonium lactate (AMLACTIN) 12 % cream 1 Application every 12 hours. Active glimepiride (AMARYL) 4 mg tablet TK 1 T PO BID Oral for 30 Active tiotropium-olo dateroL (Stiolto Respimat) 2.5-2.5 mcg/actuation mist inhaler INHALE 2 PUFFS Q 24 H Inhalation for 30 Active fluticasone-um eclidinium-lili anterol (Trelegy Ellipta) 100-62.5-25 mcg inhaler Inhale 1 puff (100 mcg total) by mouth 1 (one) time each day. 3 each 3 01/18/20 25 025 Active Eliquis 5 mg tablet TAKE 1 TABLET TWICE A DAY 180 tablet 3 02/23/20 25 Active apixaban (ELIQUIS) 5 mg tablet Take by mouth every 12 (twelve) hours. 025 Discontinued Active Problems Problem Noted Date Diagnosed Date Polycythemia vera ([facility] V24, [facility] V28) 02/2025 Acquired hammer toe of left foot 01/17/2025 Acquired hammer toe of right foot 01/17/2025 Contact with and (suspected) exposure to other hazardous substances 01/17/2025 Dizziness 10/20/2024 Assessment & Plan (10/20/2024 11:50 AM EDT): Likely related to hypotensive readings at home. However for completeness I am going to update a carotid ultrasound bilaterally. 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 ([facility] V24) 03/15/2024 Overview (03/15/2024): -Status post CABG 4 at [facility] in 1996 -Pharmacologic nuclear stress test from 07/18/2014 showed a large, moderate anteroseptal wall and apical infarct without ischemia that is unchanged from 2009 - Recent hospitalization for heart failure exacerbation in February 2024 at [facility] during which time he had minimally elevated high-sensitivity troponins which were likely demand mediated and not primary event - Cardiac cath on 02/15/2024 showed severe three-vessel northwestern shoshone disease and left main disease; ZHANG to [...] does start having tachycardia therapies. Aortic ectasia ([facility] V24) 12/23/2023 Overview (02/23/2024): -See echo under [...] 37.9 in adult 05/06/2017 Chronic atrial fibrillation (CMS/HCC V24, CMS/ [...] Xarelto and carvedilol. Patient has an elevated [id number] score for heart failure, PVD, age, diabetes. Patient should remain anticoagulated. Assessment & Plan (04/27/2024 8:26 AM EST): Patient on beta-reuben, anticoagulated with Eliquis. Patient has a DEO8PL2-XLJc score of 6 he should remain anticoagulated. [...] (automatic cardioverter/defibrillator) pres ent 11/05/2016 Overview (04/27/2024): -[employer]azz[employer] device-generator change in October 2017 Assessment & Plan (10/20/2024 11:45 AM EDT): Continue with device checks. Assessment & Plan (04/27/2024 8:26 AM EST): Most recent device interrogation did not should deliver any shocks. Assessment & Plan (03/15/2024 4:55 PM EST): Continue device clinic follow-up. Unfortunately, his device does not have remote tracking of thoracic impedance as it predated thoracic impedance monitoring on [employer] devices. Adenomatous colon polyp 11/04/2016 Overview [...] of ejection fraction after a major anterior AZ with persistent infarction by nuclear imaging even after revascularization -Status post AICD placement with a [employer] device for primary prevention -Most recently [...] However his echo was repeated during his [facility] hospitalization on 02/11/2024 and showed reduction in [...] is leaving that he is going to [place] to visit family. I asked him to be very cautious about his sodium intake and weigh himself every day while in [place]. I still believe he is quite tenuous and he is still awaiting callback from advanced heart failure treatment and transplant at [facility]. Continue current Entresto, carvedilol, Jardiance. I hesitate to increase spironolactone to the full dose because of high normal potassium on most recent basic metabolic panel. COPD (chronic obstructive pu lmonary disease) (CMS/[facility] V24, CMS/[facility] V28) 09/03/2016 Intra-abdominal varices Hypertension Assessment & [...] Encounters Date Type Department Care Team Description 02/13/2025 2:15 PM EDT Ancillary Procedure [facility] Cardiology [facility] [address] [place] [address] 01/31/2025 8:30 AM EDT Ancillary Procedure [facility] - [address] [place] [address] Chronic HFrEF (heart failure with reduced ejection fraction) ([facility] V24, [facility] V28) 01/17/2025 10:30 AM EDT Office Visit Pulmonology - [place] [address] [place] [phone] Linda Paulino MD Pulmonary emphysema, unspecified emphysema type ([facility] V24, [facility] V28) (Primary Dx); Obstructive sleep apnea; Chronic a-fib (CMS/[facility] V24, CMS/[facility] V28); Morbid obesity ([facility] V24, [facility] V28) 01/16/2025 1:30 PM EDT Ancillary Procedure [facility] [address] [place] [address] Encounter for adjustment or management of cardiac device from Last 3 Months Immunizations Immunization Administration Dates Next Due Diptheria & Tetanus, [...] Comments COPD (chronic obstructive pu lmonary disease) ([facility] V24, [facility] V28) 09/03/2016 DX:COPD (chronic o bstructive pulmonary disease) ([facility]) Hypertension 11/04/2016 [...] 2 with peripheral vascular complications (HCC) Old AZ (myocardial infarction) 11/09/2016 D X:Old AZ (myocardial infarction) DARYA on CPAP 11/04/2016 DX:DARYA [...] Sign Reading Time Taken Comments Blood Pressure 124/78 01/31/2025 10:13 AM EDT Pulse 79 01/17/2025 10:14 AM EDT Temperature 36.1 C (97 F) 01/17/2025 10:14 AM EDT Respiratory Rate 20 01/17/2025 10:14 AM EDT Oxygen Saturation 99% 01/17/2025 10:14 AM EDT Inhaled Oxygen Concentration - - Weight 89.8 kg (198 lb) 01/31/2025 10:13 AM EDT Height 172.7 cm (5' 8 ) 01/31/2025 10:13 AM EDT Body Mass Index 30.11 01/31/2025 10:13 AM EDT Plan of Treatment Upcoming Encounters Date Type Department Care Team (Late st Contact Info) Description 04/18/2025 10:20 AM EST Office Visit [facility] - [address] [place] [phone] Cecy Hillman MD [address] [place] [address] [place] [phone] 04/19/2025 10:00 AM EST Office Visit Pulmonology - [place] [address] [place] [phone] Linda Paulino MD [address] [place] [address] 08/14/2025 9:30 AM EDT Office Visit [facility] Hematology Oncology [address] [place] [phone] Cindy Moore MD [address] [place] [address] 01/17/2026 1:30 PM EDT Ancillary Procedure [facility] - [address] [facility] [address] [place] [address] Health Maintenance Due Date Last Done Comments Diabetes: Annual Foot Exam 1955 Diabetes: Annual Retina Eye Exam 1955 Falls Risk Assessment 04/18/2022 Social Influencers of Health Screening 04/18/2022 Diabetes: Blood Sugar Control Test (HGBA1C) 09/10/2022 03/13/2022 Diabetes: Annual Urine Albumin-Creatinine Ratio (uACR) 03/13/2023 03/13/2022 Medicare Annual Wellness Visit 09/29/2023 09/28/2022 Depression Screening 05/10/2024 COVID-19 Vaccine ( season) 2025 01/23/2024, 01/18/2024, 04/20/2023, Additional history exists Diabetes: Annual GFR (Glomerular [...] Completed 07/30/2024, 01/26/2020, 02/17/2019, Additional history exists Influenza Vaccine Completed 01/11/2025, , 01/18/2024, Additional history exists HIB Vaccines Aged Out [...] this topic Medical Devices Implanted Type Area Line Worker Device Identifier Shelf Expiration Date Model / Serial / Lot Bsci-Crm [id number] Implanted:10/08 (Quantity not on file) Cardiac ICD [employer] CARD RHYTHM MGMT [id number] / [id number] / Procedures Procedure Name Priority Date/Time Associated Diagnosis Comments CARDIAC DEVICE CHECK- REMOTE- MURJ Routine 02/13/2025 2:14 PM EDT TRANSTHORACIC ECHOCARDIOGRAM (TTE) COMPLETE W/ CONTRAST Routine 01/31/2025 10:14 AM EDT Chronic HFrEF (heart failure with reduced ejection fraction) (CMS/HCC V24, CMS/HCC V28) CARDIAC DEVICE CHECK- IN CLINIC- MURJ Routine 01/16/2025 2:06 PM EDT Encounter for adjustment or management of cardiac device BASIC METABOLIC PANEL Routine 08/16/2024 12:44 PM EDT Hypercholesterolem ia HM URINE ALBUMIN CREATININE RATIO Routine 03/13/2022 HEMOGLOBIN A1C Routine 03/13/2022 LIPID PANEL Routine 03/13/2022 HM COLONOSCOPY Routine 12/29/2016 HM HEPATITIS C SCREENING Routine 09/04/2016 from Last 3 Months or Most Recently Relevant to Health Maintenance Results * Cardiac device check - Remote- MURJ (02/13/2025 2:14 PM EDT) Date Time Interrogation Session [id number] CV DEVICE CHECK Type Interrogation Session Remote Scheduled CV DEVICE CHECK Implantable Pulse Generator Line Worker BSX CV DEVICE CHECK Implantable Pulse Generator Type ICD CV DEVICE CHECK Implantable Pulse Generator Model D151 CV DEVICE CHECK Implantable Pulse Generator Serial Number [id number] CV DEVICE CHECK Implantable Pulse Generator Implant Date 20171018 CV DEVICE CHECK Battery Remaining Percentage 100.00 CV DEVICE CHECK Battery Remaining Longevity 114.0 CV DEVICE CHECK Battery Status Beginning of Service CV DEVICE CHECK Capacitor Charge Time 11.000 CV DEVICE CHECK Suraj Statistic RV Percent Paced 4.00 CV DEVICE CHECK Lead Channel Sensing Intrinsic Amplitude 8.800 CV DEVICE CHECK Lead Channel Setting Sensing Sensitivity 0.60 CV DEVICE CHECK Lead Channel Impedance Value 441 CV DEVICE CHECK Lead Channel Setting Pacing [...] 3 CV DEVICE CHECK Date of Service 2025-03-02 CV DEVICE CHECK Anatomical Region Laterality Modality Device Interroga tion 02/03/2025 11:5 1 PM EDT Impressions 02/13/2025 2:06 PM EDT Normal Remote: No Events * Normal Device Function * Alerts or events: None * Battery: Battery is at 100%, 9.50 yrs * Sensing, impedance and thresholds reviewed * Programmed parameters reviewed * Presenting rhythm reviewed * Heart Rate Histograms reviewed * No significant changes noted Narrative Procedure Note Eliseo Cortez MD - 02/13/2025 IMPRESSION: Normal Remote: No Events * Normal Device Function * Alerts or events: None * Battery: Battery is at 100%, 9.50 yrs * Sensing, impedance and thresholds reviewed * Programmed parameters reviewed * Presenting rhythm reviewed * Heart Rate Histograms reviewed * No significant changes noted Eliseo Cortez MD CV IMPLANTABLE CARDIAC DEVICE PROCEDURES Final Result * TRANSTHORACIC ECHOCARDIOGRAM (TTE) COMPLETE W/ CONTRAST (01/31/2025 10:14 AM EDT) Left Atrium Minor Laporte 5.9 cm CV PACS Left Atrium Major Laporte 6.5 cm CV PACS LA Area Sys (A2C) 26 cm2 CV PACS LA Area Sys (A4C) 28 cm2 CV PACS LA Volume (BP) 94 mL CV PACS RA Area 17.5 cm2 CV PACS RA 2D Volume 47 mL CV PACS AV Regurgitation PHT 624 ms CV PACS AR Max Velocity 3.0 m/s CV PACS AV Regurgitant Volume 35 mmHg CV PACS AV Peak Law 1.1 m/s CV PACS AV Peak Gradient 5 mmHg CV PACS AV Mean Gradient 3 mmHg CV PACS AV Mean Gradient 3 mmHg CV PACS Ao VTI 25.3 cm CV PACS AV Area Continuity Equation 2.5 cm2 CV PACS AV Area Peak Velocity 3.1 cm2 CV PACS Aortic Sinus Valsalva 3.8 cm CV PACS Ascending Aorta 3.8 cm CV PACS LVOT Diameter 2.1 cm CV PACS LVOT Mean Law 0.6 m/s CV PACS LVOT Mean Grad 2 mmHg CV PACS LVOT Peak VTI 18.4 cm CV PACS LVOT Peak Law 1.0 m/s CV PACS LVOT Peak Gradient 4 mmHg CV PACS MV E' Tissue Velocity Lateral 6 cm/s CV PACS MV E' Tissue Velocity Septal 7 cm/s CV PACS LVOT Area 3.5 cm2 CV PACS LVOT Stroke Volume 64 mL CV PACS MV Deceleration [place] 6.2 m/s2 CV PACS E Wave Deceleration Time 182 119 - 242 ms CV PACS MV PHT 58 ms CV PACS MV Peak E Law 1.12 m/s CV PACS MV Mean Gradient 3 mmHg CV PACS MV VTI 24.9 cm CV PACS Mitral Valve Max Velocity 1.1 m/s CV PACS MV Peak Gradient 5 mmHg CV PACS MV Area PHT 3.8 cm2 CV PACS MV Area Continuity Equation 2.6 cm2 CV PACS PV Acceleration Time 106 ms CV PACS PV Acceleration Time 67 ms CV PACS PV Acceleration Time 87 ms CV PACS RV Diastolic Basal Dimension 4.1 2.5 - 4.1 cm CV PACS RV S' 8 cm/s CV PACS TAPSE 13 mm CV PACS TR Peak Velocity 2.37 m/s CV PACS TR Peak Gradient 22 mmHg CV PACS E/E' Ratio Septal 16 CV PACS E/E' Ratio Averaged 17 CV PACS LVOT:AV VTI Index 0.73 CV PACS MV VTI:LVOT VTI ratio 1.4 CV PACS LVOT flow 208 mL/s CV PACS AV Velocity Ratio 0.91 CV PACS E/E' Ratio Lateral 19 CV PACS BSA 2.08 m2 CV PACS LA Volume Index (BP) 46 mL/m2 CV PACS LVOT Stroke Index 31 mL/m2 CV PACS RA 2D Volume Index 23 18 - 32 mL/m2 CV PACS JUANIS Index (VTI) 1.23 cm2/m2 CV PACS JUANIS Index (Pk Law) 1.52 cm2/m2 CV PACS Ascending Aorta Index 1.86 cm/m2 CV PACS Ejection Fraction (BP) 43 % CV PACS Ejection Fraction (A4C) 47 % CV PACS Ejection Fraction (A2C) 40 % CV PACS Right Ventricular Peak Systolic Pressure 25 mmHg CV PACS Est. RA Pressure 3 mmHg CV PACS Anatomical Region Laterality Modality Ultrasound Narrative 02/27/2025 1:33 PM EDT Mildly dilated left ventricular cavity size. There is mild to moderate, segmental LV systolic dysfunction. Calculated ejection fraction by Martinez's biplane method is 43%. There is akinesis of the basal to mid inferior wall. There is akinesis to dyskinesis of the basal to mid anteroseptal wall. Paradoxic septal motion is also noted-in keeping with prior cardiac surgery. The right ventricle is not well-visualized but grossly it appears mildly dilated and hypokinetic. Pacer wire seen in the right heart. There is moderate left atrial enlargement. There is no hemodynamically significant valve disease. There is normal pulmonary artery systolic pressure. Compared to the report of prior echocardiogram from 11/06/2022, findings appear to be stable. Left Ventricle Left ventricle was not well visualized. Left ventricle cavity appears to be dilated. Wall thickness was not well visualized. Systolic function is mildly to moderately decreased with an ejection fraction of 40-45%. Calculated ejection fraction by Martinez's biplane method is 43%. There is akinesis of the basal to mid inferior wall. There is akinesis to dyskinesis of the basal to mid anteroseptal wall. Paradoxic septal motion is noted in keeping with prior cardiac surgery. Unable to assess diastolic function. Left atrial pressure is inconclusive. Right Ventricle Right ventricle free wall was not well visualized. Grossly, RV appears mildly dilated. Grossly, systolic function is mildly reduced. A pacer wire is present in the right ventricle. Left Atrium Left atrium cavity is moderately dilated. Right Atrium Right atrium cavity is normal. IVC/SVC Inferior vena cava structure is normal. RA pressures is estimated to be 3 mmHg (IVC diameter <21 mm and decreases >50% during inspiration). Mitral Valve The leaflets are mildly thickened. There is trace regurgitation. There is no evidence of mitral valve stenosis. Tricuspid Valve Tricuspid valve structure is normal. There is trace regurgitation. There is no evidence of tricuspid valve stenosis. The right ventricular systolic pressure is normal. Estimated RA pressure is 3 mmHg. The RVSP is estimated at 25 mmHg. Aortic Valve The aortic valve is trileaflet. The leaflets are mildly thickened. There is trace to mild regurgitation. There is no evidence of aortic valve stenosis. Pulmonic Valve Visualized portions of the pulmonic valve appear normal. No significant pulmonic valve regurgitation. There is no evidence of pulmonic valve stenosis. Ascending Aorta The aorta appears normal in size for age and body surface area. Pericardium Pericardium appears normal. There is no pericardial effusion. Study Details Overall the study quality was technically difficult. Definity contrast was given to enhance imaging. Study was difficult due to: poor endocardial visualization and poor acoustic windows. Wall Scoring Baseline Score Index: 2.00 The left ventricular wall motion is globally hypokinetic. us Eugene Schumacher NP CV ECHO PROCEDURES Final Result * [place]ARDIAC [place]ICE [place] [facility] [place]01/16/2025 2:06 PM EDT) Date Time Interrogation Session [id number] CV DEVICE CHECK Implantable Pulse Generator Line Worker BSX CV DEVICE CHECK Implantable Pulse Generator Type ICD CV DEVICE CHECK Implantable Pulse Generator Model D151 CV DEVICE CHECK Implantable Pulse Generator Serial Number [id number] CV DEVICE CHECK Implantable Pulse Generator Implant Date 20171018 CV DEVICE CHECK Battery Status Unknown CV DE VICE CHECK Lead Channel Sensing Intrinsic Amplitude 9.900 CV DEVICE CHECK Lead Channel Setting Sensing Sensitivity 0.60 CV DEVICE CHECK Lead Channel Impedance Value 454 CV DEVICE CHECK Lead Channel Pacing Threshold Amplitude 1.100 CV DEVICE CHECK Lead Channel Pacing Threshold Pulse Width 0.4 CV DEVICE CHECK Lead Channel RV Pacing Threshold Date 2025-01-16 CV DEVICE CHECK Lead Channel Setting Pacing [...] 0 CV DEVICE CHECK Shock Measured Impedance 60 CV DEVICE CHECK Zone Setting Type Category VF CV DEVICE CHECK Rate 210 CV DEVICE CHECK Therapies 41J, 41J CV DEVICE CHECK Zone Setting Status On CV DEVICE CHECK Zone ID 1 CV DEVICE CHECK Zone Setting Type Category VT CV DEVICE CHECK Rate 175 CV DEVICE CHECK Therapies 41J, 41J CV DEVICE CHECK Zone Setting Status On CV DEVICE CHECK Zone ID 2 CV DEVICE CHECK Zone Setting Type Category VT1 CV DEVICE CHECK Rate 150 CV DEVICE CHECK Therapies NaNJ, NaNJ CV DEVICE CHECK Zone Setting Status Off CV DEVICE CHECK Zone ID 3 CV DEVICE CHECK Date of Service 2025-01-20 CV DEVICE CHECK Anatomical Region Laterality Modality Device Interroga tion 01/16/2025 Impressions 02/06/2025 12:26 PM EDT Normal In-Office: No Events * Normal Device Function * Alerts or events: None * Battery: Battery is at 100.0%, 9.5 years * Sensing, impedance and thresholds reviewed and tested * Presenting Rhythm: VS 50s-70s irregular, patient confirms he remains on OAC * Heart Rate Histograms reviewed * Pacing and Detection Parameters were evaluated Narrative Procedure Note Eliseo Cortez MD - 02/06/2025 IMPRESSION: Normal In-Office: No Events * Normal Device Function * Alerts or events: None * Battery: Battery is at 100.0%, 9.5 years * Sensing, impedance and thresholds reviewed and tested * Presenting Rhythm: VS 50s-70s irregular, patient confirms he remains onOAC * Heart Rate Histograms reviewed * Pacing and Detection Parameters were evaluated us Order Referral Cardiovascular CV IMPLANTABLE CAR DIAC DEVICE PROCEDURES Final Result * Basic metabolic panel (08/16/2024 12:44 PM EDT) Sodium 139 133 - 145 mmol/L LAB CHEMISTRY METHOD 08/16/2024 2:42 PM [facility] Potassium 4.8 3.5 - 5.5 mmol/L LAB CHEMISTRY METHOD 08/16/2024 2:42 PM [facility] Chloride 108 96 - 110 mmol/L LAB CHEMISTRY METHOD 08/16/2024 2:42 PM [facility] CO2 24 21 - 32 mmol/L LAB CHEMISTRY METHOD 08/16/2024 2:42 PM [facility] Anion Gap 7 3 - 11 LAB CHEMISTRY METHOD 08/16/2024 2:42 PM [facility] Glucose 90 70 - 100 mg/dL LAB CHEMISTRY METHOD 08/16/2024 2:42 PM T [facility] BUN 14 5 - 25 mg/dL LAB CHEMISTRY METHOD 08/16/2024 2:42 PM EDT [facility] Creatinine 1.16 0.70 - 1.30 mg/dL LAB CHEMISTRY METHOD 08/16/2024 2:42 PM EDT [facility] eGFR 65 >=60 mL/min/1. 73m2 LAB CHEMISTRY METHOD 08/16/2024 2:42 PM EDT [facility] Comment:Calculation based on the Chronic Kidney Disease Epidemiology Collaboration (CKD-EPI) equation refit without adjustment for race. BUN/Creatinine Ratio 12.1 LAB CHEMISTRY METHOD 08/16/2024 2:42 PM EDT [facility] Calcium 9.5 8.5 - 10.5 mg/dL LAB CHEMISTRY METHOD 08/16/2024 2:42 PM EDT [facility] Blood Venous blood specimen / Unknown Venipuncture / Unknown 08/16/2024 12:44 PM EDT 08/16/2024 1:37 PM EDT Eugene Schumacher NP LAB BLOOD ORDERABLES Final Resul t [facility] [address] [place] [address], * Urine Albumin Creatinine Ratio (03/13/2022) Pathologist [facility] Urine Albumin Creatinine Ratio abstracted Historical Provider HEALTH MAINTENANCE Final Result * (ABNORMAL) Hemoglobin A1c (03/13/2022) Pathologist [facility] Hemoglobin A1C 6.8(A) <=6.5 % Blood Venous blood specimen / Unknown Historical Provider LAB BLOOD ORDERABLES Alejandra l Result * Lipid panel (03/13/2022) Pathologist [facility] LDL/HDL Ratio 3 0 - 4 Triglycerides [...] Recently Relevant to Health Maintenance Insurance MEDICARE LOCATED WITHIN [facility] Care Teams Coil Tester Relationship Specialty Start Date End Date Arlene Reeder MD [address] [place], [place] PCP - General Internal Medicine 10/09/21
== END 2025-03-14 15:16 | disposition home or self-care (01) ==
LOC: HO.HMGCX 15:15
PROVIDERS: PCP Family Medicine; Visit Provider Physician Assistant Medical
DX: M79.89 Other specified soft tissue disorders (principal)
CPT/HCPCS: 73130; 99212

== ENCOUNTER → 2025-03-14 16:22 | Outpatient (BNV) | payer MEDICARE, OTHER, SELFPAY | PROVIDERS: PCP Family Medicine; Visit Provider Radiology Diagnostic Radiology | DX: M19.041 Primary osteoarthritis, right hand (principal) | CPT/HCPCS: 73130 ==

== ENCOUNTER 2025-03-15 08:34 | Outpatient (REF) | payer MEDICARE, OTHER, SELFPAY ==
--- OUTSIDE RECORDS SUMMARY | 2025-03-15 09:03 | XMS_ITS | Encounter Summary ---
Author Organization [facility] Address [address] [place] [address] Care Team Providers Care Panel Beater Name Role Phone Cecy Hillman MD Unavailable Camilo Nguyen Unavailable Astrid Reeder MD Primary Care Prov ider Unavailable Reason for Visit * Reason Comments Remote Device Check Encounter Details Date Type Department Care Team Description 07/07/2022 Remote Device Check Cardio PVC POC 154 [address] [facility] [address] [place] [address] Eliseo Cortez MD [address] [place] [address] [id number] Social History Tobacco Use Types Packs/Day Years Used Date Smoking Tobacco: Former Cigarettes 1 11 0 05/25/1960 - 05/10/1971 Smokeless Tobacco: Never Comments:1971 Alcohol Use Standard Drinks/Week Comments Yes 0 (1 standard drink = 0.6 oz pur e alcohol) 3 drinks per mo Alcohol Habits Answer Date Recorded How often do you have a drink containing alcohol ? 2-4 times a month 06/13/2020 How many drinks containing a lcohol do you have on a typical day when you are drinking? Not asked How often do you have six or more drinks on one occasion? Not asked Sex Assigned at Date Recorded Male 08/05/2020 10:40 AM EDT Job Start Date Occupation Industry Not on file Not on file Not on file documented as of this encounter Plan of Treatment Not on file documented as of this encounter Visit Diagnoses Not on filedocumented in this encounter Care Teams Panel Beater Relationship Specialty Start Date End Date Astrid Reeder MD PCP - General Internal Medicine 10/09/21 Cecy Hillman MD Specialist Cardiology 06/04/20 Camilo Nguyen PA Specialist Cardiology 06/04/20 12/19/23 documented as of this encounter
--- OUTSIDE RECORDS SUMMARY | 2025-03-15 09:03 | XMS_ITS | Encounter Summary ---
Author Organization [facility] Address [address] [place] [address] Care Team Providers Care Mortgage Operations Manager Name Role Phone Cecy Hillman MD Unavailable [phone] Camilo Nguyen Unavailable Astrid Reeder MD Primary Care Prov ider Unavailable Encounter Details Date Type Department Care Team Description 10/21/2022 Telephone Cardio PVC POC [address] [place] [address] Radha Lala PA-C [address] [place] [address] [id number] Social History Tobacco Use Types Packs/Day Years [...] file Not on file Not on file COVID-19 Exposure Response Date Recorded In the last 10 days, have yo u been in contact with someone who was confirmed or suspected to have Coronavirus/COVID-19? No / Unsure 10/22/2022 11:08 AM EDT documented as of this encounter Miscellaneous Notes * Telephone Encounter - Radha Lala PA-C - 10/21/2022 9:06 AM EDT Please see Cc'd chart for remote alert details 17 bts [place] documented in this encounter Plan of Treatment Not on file documented as of this encounter Visit Diagnoses Not on filedocumented in this encounter Care Teams Mortgage Operations Manager Relationship Specialty Start Date End Date Astrid Reeder MD PCP - General Internal Medicine 10/09/21 Cecy Hillman MD Specialist Cardiology 06/04/20 Camilo Nguyen PA Specialist Cardiology 06/04/20 12/19/23 documented as of this encounter
--- OUTSIDE RECORDS SUMMARY | 2025-03-15 09:03 | XMS_ITS | Encounter Summary ---
Author Organization [facility] Address [address] [facility] [place] [address] Care Team Providers Care Burn Nurse Name Role Phone Pilar Cloud MD Primary Care Provider Cecy Hilton MD Unavailable [phone] Camilo Nguyen Unavailable Holland Cardona MD Primary Care Provider Astrid Reeder MD Primary Care Prov ider Unavailable Encounter Details Date Type Department Care Team Description 03/13/2019 School Psychometrist Report Medical Records [address] [place] [address] Cecy Hillman MD [address] [place] [address] [id number] Social History Tobacco Use Types Packs/Day Years Used Date Smoking Tobacco: Former Cigarettes 1 11 0 05/25/1960 - 05/10/1971 Smokeless Tobacco: Former Comments:1971 Alcohol Use Standard Drinks/Week Comments Yes [...] on filedocumented in this encounter Care Teams Burn Nurse Relationship Specialty Start Date End Date Pilar Cloud MD PCP - General Internal Medicine 09/03/16 01/20/21 Holland Cardona MD [address] [place] [address] PCP - General Internal Medicine 01/21/21 10/08/21 Astrid Reeder MD [address] [place] [address] PCP - General Internal Medicine 10/09/21 Cecy Hillman MD Specialist Cardiology 06/04/20 Camilo Nguyen PA Specialist Cardiology 06/04/20 12/19/23 documented as of this encounter
--- OUTSIDE RECORDS SUMMARY | 2025-03-15 09:03 | XMS_ITS | Encounter Summary ---
Author Organization [facility] Address [address] [facility] [place] [address] Care Team Providers Care Manager Intranet Name Role Phone Pilar Cloud MD Primary Care Provider Cecy Hilton MD Unavailable [phone] Camilo Nguyen Unavailable Holland Cardona MD Primary Care Provider [phone] Astrid Reeder MD Primary Care Prov ider Unavailable Encounter Details Date Type Department Care Team Description 02/03/2017 Brood Station Manager Report Medical Records 4 [place] [address] Glenn Lemos MD 4 [place], [place] [id number] Social History Tobacco Use Types Packs/Day Years [...] on filedocumented in this encounter Care Teams Manager Intranet Relationship Specialty Start Date End Date Pilar Cloud MD PCP - General Internal Medicine 09/03/16 01/20/21 Holland Cardona MD [address] [place] [address] PCP - General Internal Medicine 01/21/21 10/08/21 Astrid Reeder MD [address] [place] [address] PCP - General Internal Medicine 10/09/21 Cecy Hillman MD Specialist Cardiology 06/04/20 Camilo Nguyen PA Specialist Cardiology 06/04/20 12/19/23 documented as of this encounter
--- OUTSIDE RECORDS SUMMARY | 2025-03-15 09:03 | XMS_ITS | Encounter Summary ---
Author Organization [facility] Address [address] [facility] [place] [address] Care Team Providers Care Hyperbaric Welder Diver Name Role Phone Pilar Cloud MD Primary Care Provider Cecy Hilton MD Unavailable [phone] Camilo Nguyen Unavailable Holland Cardona MD Primary Care Provider [phone] Astrid Reeder MD Primary Care Prov ider Unavailable Reason for Visit * Reason Comments E-prescribe Rx Request Encounter Details Date Type Department Care Team Description 01/04/2019 Refill Adult Medicine [address] [id number] Pilar Cloud MD E-prescribe Rx Request Social History Tobacco Use Types Packs/Day Years [...] on file documented as of this encounter Miscellaneous Notes * Telephone Encounter - Rachel Matamoros M.A. - 01/05/2019 1:00 PM EDT Lab Results Component Value Date WBC 8.3 12/13/2018 HGB 16.4 12/13/2018 HCT 54.2 12/13/2018 MCV 77.4 12/13/2018 PLTCT TNP 12/13/2018 * Telephone Encounter - Tyesha Manuel - 01/04/2019 9:49 AM EDT Patient would like script to be: E-PRESCRIBED/FAXED TO PHARMACY WHEN WAS THE PATIENT'S LAST APPOINTMENT IN ADULT MEDICINE? 09/21/18 WHEN WAS THE LAST TIME THE PATIENT SAW THEIR PCP? 08/09/18 Does patient have an upcoming appointment? Yes 02/27/19 (THE MEDICATION REQUESTED IS ON THE MED LIST ABOVE) All of the medications requested were on the CURRENT MEDS list Did you check the Pharmacy information above?: YES Patient wants: 90 -day supply Is this a mail order prescription request ? YES If the refill is from a FAXED refill request what is the RX # listed on the fax? N/A Patients current insurance carrier is: [place] / [place] / Product Type: MEDICARE [id number] documented in this encounter Plan of Treatment Not on file documented as of this encounter Visit Diagnoses Not on filedocumented in this encounter Care Teams Hyperbaric Welder Diver Relationship Specialty Start Date End Date Pilar Cloud MD PCP - General Internal Medicine 09/03/16 01/20/21 Holland Cardona MD [address] [place] [address] PCP - General Internal Medicine 01/21/21 10/08/21 Astrid Reeder MD [address] [place] [address] PCP - General Internal Medicine 10/09/21 Cecy Hillman MD Specialist Cardiology 06/04/20 Camilo Nguyen PA Specialist Cardiology 06/04/20 12/19/23 documented as of this encounter
--- OUTSIDE RECORDS SUMMARY | 2025-03-15 09:03 | XMS_ITS | Encounter Summary ---
Author Organization [facility] Address [address] [facility] [place] [address] Care Team Providers Care Table Worker Name Role Phone Pilar Cloud MD Primary Care Provider Cecy Hilton MD Unavailable [phone] Camilo Nguyen Unavailable Holland Cardona MD Primary Care Provider [phone] Astrid Reeder MD Primary Care Prov ider Unavailable Reason for Visit * Reason Comments E-prescribe Rx Request Encounter Details Date Type Department Care Team Description 04/03/2019 Refill Adult Medicine [address] [phone] Pilar Cloud MD E-prescribe Rx Request Social [...] encounter Miscellaneous Notes * Telephone Encounter - Logan Royal M.A. - 04/04/2019 11:58 AM EST Faxed to pharmacy * Telephone Encounter - Prachi Mark M.A. - 04/04/2019 6:54 AM EST Lab Results Component Value Date CHOL 117 02/17/2019 LDL 55 02/17/2019 HDL 40 02/17/2019 TRIG 110 02/17/2019 SGOT 17 06/07/2018 SGPT 20 06/07/2018 * Telephone Encounter - Lindsay Ramos - 04/03/2019 4:57 PM EST Patient would like script to be: E-PRESCRIBED/FAXED TO PHARMACY WHEN WAS THE PATIENT'S LAST APPOINTMENT IN ADULT MEDICINE? 02-27-19 WHEN WAS THE LAST TIME THE PATIENT SAW THEIR PCP? Same as above Does patient have an upcoming appointment? Yes 05-30-19 (THE MEDICATION REQUESTED IS ON THE MED LIST ABOVE) One or some of the medications requested were on the HISTORICAL MED list Did you check the Pharmacy information above?: YES Patient wants: 90 -day supply Is this a mail order prescription request ? YES If the refill is from a FAXED refill request what is the RX # listed on the fax? N/A Patients current insurance carrier is: [place] / [place] / Product Type: MEDICARE [id number] documented in this encounter Plan of Treatment Not on file documented as of this encounter Visit Diagnoses Not on filedocumented in this encounter Care Teams Table Worker Relationship Specialty Start Date End Date Pilar Cloud MD PCP - General Internal Medicine 09/03/16 01/20/21 Holland Cardona MD [address] [place] [address] PCP - General Internal Medicine 01/21/21 10/08/21 Astrid Reeder MD [address] [place] [address] PCP - General Internal Medicine 10/09/21 Cecy Hillman MD Specialist Cardiology 06/04/20 Camilo Nguyen PA Specialist Cardiology 06/04/20 12/19/23 documented as of this encounter
--- OUTSIDE RECORDS SUMMARY | 2025-03-15 09:03 | XMS_ITS | Encounter Summary ---
Author Organization [facility] Address [address] [facility] [place] [address] Care Team Providers Care Computer Animator Name Role Phone Pilar Cloud MD Primary Care Provider Cecy Hilton MD Unavailable [phone] Camilo Nguyen Unavailable Holland Cardona MD Primary Care Provider [phone] Astrid Reeder MD Primary Care Prov ider Unavailable Reason for Visit * Reason Comments E-prescribe Rx Request Encounter Details Date Type Department Care Team Description 10/29/2018 Refill Adult Medicine [address] [phone] Pilar Cloud MD E-prescribe Rx Request Social [...] encounter Miscellaneous Notes * Telephone Encounter - Steffi Sherman M.A. - 10/31/2018 10:15 AM EDT Lab Results Component Value Date HGBA1C 7.7 09/19/2018 MALBUR 247.0 07/28/2018 MALBCR 249.4 07/28/2018 CHOL 121 06/07/2018 LDL 58 06/07/2018 HDL 41 06/07/2018 TRIG 112 06/07/2018 GLU 84 08/09/2018 CREAT 1.23 07/28/2018 * Telephone Encounter - Tyesha Manuel - 10/31/2018 9:50 AM EDT Patient would like script to [...] / Plan[place] / Product Type: MEDICARE [id number] documented in this encounter Plan of Treatment Not on file documented as of this encounter Visit Diagnoses Not on filedocumented in this encounter Care Teams Computer Animator Relationship Specialty Start Date End Date Pilar Cloud MD PCP - General Internal Medicine 09/03/16 01/20/21 Holland Cardona MD [address] [place] [address] PCP - General Internal Medicine 01/21/21 10/08/21 Astrid Reeder MD [address] [place] [address] PCP - General Internal Medicine 10/09/21 Cecy Hillman MD Specialist Cardiology 06/04/20 Camilo Nguyen PA Specialist Cardiology 06/04/20 12/19/23 documented as of this encounter
--- OUTSIDE RECORDS SUMMARY | 2025-03-15 09:03 | XMS_ITS | Encounter Summary ---
Author Organization [facility] Address [address] [facility] [place] [address] Care Team Providers Care Registrar College [employer] Name Role Phone Pilar Cloud MD Primary Care Provider Cecy Hilton MD Unavailable [phone] Camilo Nguyen Unavailable Holland Cardona MD Primary Care Provider [phone] Astrid Reeder MD Primary Care Prov ider Unavailable Reason for Visit * Reason Comments E-prescribe Rx Request Encounter Details Date Type Department Care Team Description 09/25/2020 Refill Adult Medicine [address] [id number] Candace Frost PA [address] [place] [address] [phone] E-prescribe Rx Request Social History Tobacco Use [...] encounter Miscellaneous Notes * Telephone Encounter - Giselle Esteban M.A. - 09/27/2020 10:32 AM EDT MILLIE 08/08/2020 telehealth (return in 3 mths) No F/U appt Lab Results Component Value Date CHOL 126 06/21/2020 LDL 56 06/21/2020 HDL 41 06/21/2020 TRIG 146 06/21/2020 SGOT 17 06/07/2018 SGPT 20 06/07/2018 * Telephone Encounter - Lashawn Aguila - 09/27/2020 9:58 AM EDT Patient would like script to be: E-PRESCRIBED/FAXED TO PHARMACY WHEN WAS THE PATIENT'S LAST APPOINTMENT IN ADULT MEDICINE? 08/08/2020 WHEN WAS THE LAST TIME THE PATIENT SAW THEIR PCP? Same as above Does patient have an upcoming appointment? Yes no (THE MEDICATION REQUESTED IS ON THE MED LIST ABOVE) All of the medications requested were on the CURRENT MEDS list Did you check the Pharmacy information above?: YES Patient wants: please see sig Is this a mail order prescription request ? yes If the refill is from a FAXED refill request what is the RX # listed on the fax? N/A Patients current insurance carrier is: [place] / [place] / Product Type: MEDICARE [id number] documented in this encounter Plan of Treatment Not on file documented as of this encounter Visit Diagnoses Not on filedocumented in this encounter Care Teams Registrar College [employer] Relationship Specialty Start Date End Date Pilar Cloud MD PCP - General Internal Medicine 09/03/16 01/20/21 Holland Cardona MD [address] [place] [address] PCP - General Internal Medicine 01/21/21 10/08/21 Astrid Reeder MD [address] [place] [address] PCP - General Internal Medicine 10/09/21 Cecy Hillman MD Specialist Cardiology 06/04/20 Camilo Nguyen PA Specialist Cardiology 06/04/20 12/19/23 documented as of this encounter
--- OUTSIDE RECORDS SUMMARY | 2025-03-15 09:03 | XMS_ITS | Encounter Summary ---
Author Organization [facility] Address [address] [facility] [place] [address] Care Team Providers Care Traffic Control Officer Name Role Phone Pilar Cloud MD Primary Care Provider Cecy Hilton MD Unavailable [phone] Camilo Nguyen Unavailable Holland Cardona MD Primary Care Provider [phone] Astrid Reeder MD Primary Care Prov ider Unavailable Encounter Details Date Type Department Care Team Description 11/24/2016 Assistant To The Ceo Report Medical Records [address] [place] [address] [place] [address] [place] DELBERT Social History Tobacco Use Types Packs/Day Years [...] on filedocumented in this encounter Care Teams Traffic Control Officer Relationship Specialty Start Date End Date Pilar Cloud MD PCP - General Internal Medicine 09/03/16 01/20/21 Holland Cardona MD [address] [place] [address] PCP - General Internal Medicine 01/21/21 10/08/21 Astrid Reeder MD [address] [place] [address] PCP - General Internal Medicine 10/09/21 Cecy Hillman MD Specialist Cardiology 06/04/20 Camilo Nguyen PA Specialist Cardiology 06/04/20 12/19/23 documented as of this encounter
--- OUTSIDE RECORDS SUMMARY | 2025-03-15 09:03 | XMS_ITS | Encounter Summary ---
Author Organization [facility] Address [address] [facility] [place] [address] Care Team Providers Care Quarrying Manager Name Role Phone Pilar Cloud MD Primary Care Provider Cecy Hilton MD Unavailable [phone] Camilo Nguyen Unavailable Holland Cardona MD Primary Care Provider [phone] Astrid Reeder MD Primary Care Prov ider Unavailable Encounter Details Date Type Department Care Team Description 09/24/2020 Work Manager Report Medical Records [address] [place] [address] [place] [address] [place] V., DELBERT Social History Tobacco [...] on filedocumented in this encounter Care Teams Quarrying Manager Relationship Specialty Start Date End Date Pilar Cloud MD PCP - General Internal Medicine 09/03/16 01/20/21 Holland Cardona MD [address] [place] [address] PCP - General Internal Medicine 01/21/21 10/08/21 Astrid Reeder MD [address] [place] [address] PCP - General Internal Medicine 10/09/21 Cecy Hillman MD Specialist Cardiology 06/04/20 Camilo Nguyen PA Specialist Cardiology 06/04/20 12/19/23 documented as of this encounter
--- OUTSIDE RECORDS SUMMARY | 2025-03-15 09:03 | XMS_ITS | Encounter Summary ---
Author Organization [facility] Address [address] [place] [address] Care Team Providers Care Post Framer Name Role Phone Pilar Cloud MD Primary Care Provider Cecy Hilton MD Unavailable [phone] Camilo Nguyen Unavailable Holland Cardona MD Primary Care Provider [phone] Astrid Reeder MD Primary Care Prov ider Unavailable Reason for Visit * Reason Comments E-prescribe Rx Request Encounter Details Date Type Department Care Team Description 11/18/2020 Refill Adult Medicine [address] [phone] Joshua Nelson MD E-prescribe Rx Request Social History Tobacco [...] encounter Miscellaneous Notes * Telephone Encounter - Yancy Louis. - 11/20/2020 10:29 AM EDT RX d/c on 04/11/2020 * Telephone Encounter - Lizz Crump M.A. - 11/19/2020 4:03 PM EDT Lab Results Component Value Date HGBA1C 7.5 06/21/2020 MALBUR 7.8 06/21/2020 MALBCR < 43.3 06/21/2020 CHOL 126 06/21/2020 LDL 56 06/21/2020 HDL 41 06/21/2020 TRIG 146 06/21/2020 GLU 181 10/31/2019 CREAT 1.21 10/31/2019 Pending appt 12/09/20 with Sabine Saenz PAC * Telephone Encounter - Saira Cai - 11/18/2020 4:00 PM EDT Patient has an appointment on 12/09/20 for med review * Telephone Encounter - Cassie Coats - 11/18/2020 2:57 PM EDT Patient would like script to be: E-PRESCRIBED/FAXED TO PHARMACY WHEN WAS THE PATIENT'S LAST APPOINTMENT IN ADULT MEDICINE? 10/02/2020 WHEN WAS THE LAST TIME THE PATIENT SAW THEIR PCP? Has not seen PCP Does patient have an upcoming appointment? Patient was sent a My Chart request to set up an appointment as they are due. (THE MEDICATION REQUESTED IS ON THE MED LIST ABOVE) All of the medications requested were on the CURRENT MEDS list Did you check the Pharmacy information above?: YES Patient wants: 90 -day supply Is this a mail order prescription request ? NO If the refill is from a FAXED refill request what is the RX # listed on the fax? N/A Patients current insurance carrier is: Payor: MEDICARE-[employer] / Plan[place] / Product Type: MEDICARE [id number] documented in this encounter Plan of Treatment Not on file documented as of this encounter Visit Diagnoses Not on filedocumented in this encounter Care Teams Post Framer Relationship Specialty Start Date End Date Pilar Cloud MD PCP - General Internal Medicine 09/03/16 01/20/21 Holland Cardona MD [address] [place] [address] PCP - General Internal Medicine 01/21/21 10/08/21 Astrid Reeder MD [address] [place] [address] PCP - General Internal Medicine 10/09/21 Cecy Hillman MD Specialist Cardiology 06/04/20 Camilo Nguyen PA Specialist Cardiology 06/04/20 12/19/23 documented as of this encounter
--- OUTSIDE RECORDS SUMMARY | 2025-03-15 09:03 | XMS_ITS | Encounter Summary ---
Author Organization [facility] Address [address] [facility] [place] [address] Care Team Providers Care Journeyman Pipefitter Name Role Phone Cecy Hillman MD Unavailable [phone] Camilo Nguyen Unavailable Holland Cardona MD Primary Care Provider [phone] Astrid Reeder MD Primary Care Prov ider Unavailable Encounter Details Date Type Department Care Team Description 03/25/2021 Customer Success Advocate Report Medical Records [address] [place] [address] [place] [address] Cindy Moore MD Social History Tobacco Use Types Packs/Day Years [...] Exposure Response Date Recorded In the last month, have you been in contact with someone who was confirmed or suspected to have Coronavirus / COVID-19? No / Unsure 03/03/2021 12:51 PM EDT documented as of this encounter Plan of Treatment Not on file documented as of this encounter Visit Diagnoses Not on filedocumented in this encounter Care Teams Journeyman Pipefitter Relationship Specialty Start Date End Date Holland Cardona MD [address] [place] [address] PCP - General Internal Medicine 01/21/21 10/08/21 Astrid Reeder MD [address] [place] [address] PCP - General Internal Medicine 10/09/21 Cecy Hillman MD Specialist Cardiology 06/04/20 Camilo Nguyen PA Specialist Cardiology 06/04/20 12/19/23 documented as of this encounter
--- OUTSIDE RECORDS SUMMARY | 2025-03-15 09:03 | XMS_ITS | Encounter Summary ---
Author Organization [facility] Address [address] [facility] [place] [address] Care Team Providers Care Lamps Tester And Inspector Name Role Phone Cecy Hillman MD Unavailable [phone] Camilo Nguyen Unavailable Astrid Reeder MD Primary Care Prov ider Unavailable Encounter Details Date Type Department Care Team Description 11/26/2022 SCAN Medical Records [address] [facility] [place] [address] [facility] Social History Tobacco Use Types Packs/Day Years [...] Recorded In the last 10 days, have sana jha been in contact with someone who was confirmed or suspected to have Coronavirus/COVID-19? No / Unsure 10/27/2022 6:55 AM EDT documented as of this encounter Plan of Treatment Not on file documented as of this encounter Visit Diagnoses Not on filedocumented in this encounter Care Teams Lamps Tester And Inspector Relationship Specialty Start Date End Date Astrid Reeder MD PCP - General Internal Medicine 10/09/21 Cecy Hillman MD Specialist Cardiology 06/04/20 Camilo Nguyen PA Specialist Cardiology 06/04/20 12/19/23 documented as of this encounter
--- OUTSIDE RECORDS SUMMARY | 2025-03-15 09:03 | XMS_ITS | Encounter Summary ---
Author Organization [facility] Address [address] [facility] [place] [address] Care Team Providers Care Tube Coremaker Name Role Phone Pilar Cloud MD Primary Care Provider Cecy Hilton MD Unavailable [phone] Camilo Nguyen Unavailable Holland Cardona MD Primary Care Provider [phone] Astrid Reeder MD Primary Care Prov ider Unavailable Encounter Details Date Type Department Care Team Description 01/01/2017 Orders Only Medical Records [address] [place] [address] [place] [address] Sybil Jeffrey MD Social History Tobacco Use Types Packs/Day [...] on file documented as of this encounter Procedures Procedure Name Priority Date/Time Associated Diagnosis Comments OUTSIDE PATHOLOGY Routine 12/29/2016 documented in this encounter Results * OUTSIDE PATHOLOGY (12/29/2016) Sybil Jeffrey MD OUTSIDE LAB documented in this encounter Visit Diagnoses Not on filedocumented in this encounter Care Teams Tube Coremaker Relationship Specialty Start Date End Date Pilar Cloud MD PCP - General Internal Medicine 09/03/16 01/20/21 Holland Cardona MD [address] [place] [address] PCP - General Internal Medicine 01/21/21 10/08/21 Astrid Reeder MD [address] [place] [address] PCP - General Internal Medicine 10/09/21 Cecy Hillman MD Specialist Cardiology 06/04/20 Camilo Nguyen PA Specialist Cardiology 06/04/20 12/19/23 documented as of this encounter
--- OUTSIDE RECORDS SUMMARY | 2025-03-15 09:03 | XMS_ITS | Encounter Summary ---
Author Organization [facility] Address [address] [facility] [place] [address] Care Team Providers Care Funeral Pre Arrangement Counselor Name Role Phone Pilar Cloud MD Primary Care Provider Cecy Hilton MD Unavailable [phone] Camilo Nguyen Unavailable Holland Cardona MD Primary Care Provider [phone] Astrid Reeder MD Primary Care Prov ider Unavailable Encounter Details Date Type Department Care Team Description 07/02/2020 Chucker Report Medical Records [address] [facility] [place] [address] [place] [address] [place] Social History Tobacco [...] have Coronavirus / COVID-19? No / Unsure 06/27/2020 8:53 AM EST documented as of this encounter Plan of Treatment Not on file documented as of this encounter Visit Diagnoses Not on filedocumented in this encounter Care Teams Funeral Pre Arrangement Counselor Relationship Specialty Start Date End Date Pilar Cloud MD PCP - General Internal Medicine 09/03/16 01/20/21 Holland Cardona MD [address] [place] [address] PCP - General Internal Medicine 01/21/21 10/08/21 Astrid Reeder MD [address] [place] [address] PCP - General Internal Medicine 10/09/21 Cecy Hillman MD Specialist Cardiology 06/04/20 Camilo Nguyen PA Specialist Cardiology 06/04/20 12/19/23 documented as of this encounter
--- OUTSIDE RECORDS SUMMARY | 2025-03-15 09:03 | XMS_ITS | Encounter Summary ---
Author Organization [facility] Address [address] [facility] [place] [address] Care Team Providers Care Signal Circuit Designer Name Role Phone Cecy Hillman MD Unavailable [phone] Astrid Reeder MD Primary Care Prov ider Unavailable Encounter Details Date Type Department Care Team Description 02/11/2024 Hospital Medical Records [address] [place] [address] [place] [address] Social History Tobacco Use Types Packs/Day Years Used Date Smoking Tobacco: Former Cigarettes 1 11 0 05/25/1960 - 05/10/1971 Smokeless Tobacco: Never Comments:1971 Alcohol Use Standard Drinks/Week Comments Yes 0 (1 standard drink = 0.6 oz pur e alcohol) occasional Alcohol Habits Answer Date Recorded How often [...] on filedocumented in this encounter Care Teams Signal Circuit Designer Relationship Specialty Start Date End Date Astrid Reeder MD PCP - General Internal Medicine 10/09/21 Cecy Hillman MD Specialist Cardiology 06/04/20 documented as of this encounter
--- OUTSIDE RECORDS SUMMARY | 2025-03-15 09:03 | XMS_ITS | Encounter Summary ---
Author Organization [facility] Address [address] [facility] [place] [address] Care Team Providers Care Analog Ic Design Engineer Name Role Phone Cecy Hillman MD Unavailable [phone] Camilo Nguyen Unavailable Holland Cardona MD Primary Care Provider [phone] Astrid Reeder MD Primary Care Prov ider Unavailable Reason for Visit * Reason Comments Remote Device Check Encounter Details Date Type Department Care Team Description 02/15/2021 Remote Device Check Cardio PVC POC 154 [address] [facility] [address] [place] [address] Eliseo Cortez MD [address] [place] [address] [phone] Social History Tobacco Use Types Packs/Day Years [...] have Coronavirus / COVID-19? No / Unsure 02/10/2021 8:23 AM EDT documented as of this encounter Plan of Treatment Not on file documented as of this encounter Visit Diagnoses Not on filedocumented in this encounter Care Teams Analog Ic Design Engineer Relationship Specialty Start Date End Date Holland Cardona MD [address] [place] [address] PCP - General Internal Medicine 01/21/21 10/08/21 Astrid Reeder MD [address] [place] [address] PCP - General Internal Medicine 10/09/21 Cecy Hillman MD Specialist Cardiology 06/04/20 Camilo Nguyen PA Specialist Cardiology 06/04/20 12/19/23 documented as of this encounter
--- OUTSIDE RECORDS SUMMARY | 2025-03-15 09:03 | XMS_ITS | Encounter Summary ---
Author Organization [facility] Address [address] [place] [address] Care Team Providers Care Cnc Mill Programmer Name Role Phone Cecy Hillman MD Unavailable [phone] Camilo Nguyen Unavailable Astrid Reeder MD Primary Care Prov ider Unavailable Encounter Details Date Type Department Care Team Description 07/07/2022 Telephone Cardio PVC POC 154 300 [facility] [address] [place] [address] Radha Lala PA-C [address] [place] [address] [phone] Social History Tobacco Use Types Packs/Day Years [...] encounter Miscellaneous Notes * Telephone Encounter - Jeannine Galicia RN - 07/07/2022 4:39 PM EST Noted LM response. Called pt made aware no repeat labs necessary. Made aware to cont to monitor andcall back if experiencing any s/s. Is thankful for the call back. 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 States he did not feel anything on WednesdayJuly 05 at 8 PM. He currently is not having any s/s also. States he has not had a recent illness, he is taking all his meds as ordered with no missed doses. He has had no changes in his diet. His fluid intake consists mostly of water 5-6 16 oz bottles a day and one cup of regular coffee a day. He does drink one mixed drink about 2-3 times a month. Has not had any labwork done since May, per pt, do you want updated labs? * Telephone Encounter - Radha Lala PA-C - 07/07/2022 2:09 PM EST Remote alert single-chamber ICD 13 beats of VT July 05 at [address] Abraham please call patient and assess for any symptoms recent illness, missed medications documented in this encounter Plan of Treatment Not on file documented as of this encounter Visit Diagnoses Not on filedocumented in this encounter Care Teams Cnc Mill Programmer Relationship Specialty Start Date End Date Astrid Reeder MD PCP - General Internal Medicine 10/09/21 Cecy Hillman MD Specialist Cardiology 06/04/20 Camilo Nguyen PA Specialist Cardiology 06/04/20 12/19/23 documented as of this encounter
--- OUTSIDE RECORDS SUMMARY | 2025-03-15 09:03 | XMS_ITS | Encounter Summary ---
Author Organization [facility] Address [address] [facility] [place] [address] Care Team Providers Care Cooker Loader Name Role Phone Pilar Cloud MD Primary Care Provider Cecy Hilton MD Unavailable [phone] Camilo Nguyen Unavailable Holland Cardona MD Primary Care Provider [phone] Astrid Reeder MD Primary Care Prov ider Unavailable Encounter Details Date Type Department Care Team Description 07/23/2017 Director Social Service Report Medical Records [address] [place] [address] [place] [address] Rehab., Shar Social History Tobacco Use Types Packs/Day Years [...] on filedocumented in this encounter Care Teams Cooker Loader Relationship Specialty Start Date End Date Pilar Cloud MD PCP - General Internal Medicine 09/03/16 01/20/21 Holland Cardona MD [address] [place] [address] PCP - General Internal Medicine 01/21/21 10/08/21 Astrid Reeder MD [address] [place] [address] PCP - General Internal Medicine 10/09/21 Cecy Hillman MD Specialist Cardiology 06/04/20 Camilo Nguyen PA Specialist Cardiology 06/04/20 12/19/23 documented as of this encounter
--- OUTSIDE RECORDS SUMMARY | 2025-03-15 09:03 | XMS_ITS | Encounter Summary ---
Author Organization [facility] Address [address] [facility] [place] [address] Care Team Providers Care Foot Tender Name Role Phone Pilar Cloud MD Primary Care Provider Cecy Hilton MD Unavailable Camilo Nguyen Unavailable Holland Cardona MD Primary Care Provider [phone] Astrid Reeder MD Primary Care Prov ider Unavailable Reason for Visit * Reason Comments E-prescribe Rx Request Encounter Details Date Type Department Care Team Description 04/29/2019 Refill Adult Medicine [address] [phone] Cassie Saenz PA-C [address] [place] [address] [phone] E-prescribe Rx Request Social History Tobacco Use [...] Telephone Encounter - Logan Royal M.A. - 05/01/2019 2:14 PM EST Faxed to pharmacy * Telephone Encounter - Lizz Crump M.A. - 05/01/2019 11:36 AM EST Lab Results Component Value Date HGBA1C 7.9 02/17/2019 MALBUR 247.0 07/28/2018 MALBCR 249.4 07/28/2018 CHOL 117 02/17/2019 LDL 55 02/17/2019 HDL 40 02/17/2019 TRIG 110 02/17/2019 GLU 84 08/09/2018 CREAT 1.23 07/28/2018 Last ov 02/2019 * Telephone Encounter - Saira Guadarrama - 05/01/2019 11:15 AM EST Patient would like script to be: E-PRESCRIBED/FAXED TO PHARMACY WHEN WAS THE PATIENT'S LAST APPOINTMENT IN ADULT MEDICINE? 02/27/19 WHEN WAS THE LAST TIME THE PATIENT SAW THEIR PCP? Same as above Does patient have an upcoming appointment? Yes 05/30/19 (THE MEDICATION REQUESTED IS ON THE MED [...] / Plan: [place] / Product Type: MEDICARE [id number] documented in this encounter Plan of Treatment Not on file documented as of this encounter Visit Diagnoses Not on filedocumented in this encounter Care Teams Foot Tender Relationship Specialty Start Date End Date Pilar Cloud MD PCP - General Internal Medicine 09/03/16 01/20/21 Holland Cardona MD [address] [place] [address] PCP - General Internal Medicine 01/21/21 10/08/21 Astrid Reeder MD [address] [place] [address] PCP - General Internal Medicine 10/09/21 Cecy Hillman MD Specialist Cardiology 06/04/20 Camilo Nguyen PA Specialist Cardiology 06/04/20 12/19/23 documented as of this encounter
--- OUTSIDE RECORDS SUMMARY | 2025-03-15 09:03 | XMS_ITS | Encounter Summary ---
Author Organization [facility] Address [address] [facility] [place] [address] Care Team Providers Care Fish Roe Processor Name Role Phone Pilar Cloud MD Primary Care Provider Cecy Hilton MD Unavailable [phone] Camilo Nguyen Unavailable Holland Cardona MD Primary Care Provider [phone] Astrid Reeder MD Primary Care Prov ider Unavailable Encounter Details Date Type Department Care Team Description 11/24/2018 Incoming Correspondence Medical Records [address] [facility] [place] [address] [facility] Social History Tobacco Use Types Packs/Day [...] on filedocumented in this encounter Care Teams Fish Roe Processor Relationship Specialty Start Date End Date Pilar Cloud MD PCP - General Internal Medicine 09/03/16 01/20/21 Holland Cardona MD [address] [place] [address] PCP - General Internal Medicine 01/21/21 10/08/21 Astrid Reedre MD [address] [place] [address] PCP - General Internal Medicine 10/09/21 Cecy Hillman MD Specialist Cardiology 06/04/20 Camilo Nguyen PA Specialist Cardiology 06/04/20 12/19/23 documented as of this encounter
--- OUTSIDE RECORDS SUMMARY | 2025-03-15 09:04 | XMS_ITS | Encounter Summary ---
Author Organization [facility] Address [address] [facility] [place] [address] Care Team Providers Care Community Affairs Manager Name Role Phone Cecy Hlilman MD Unavailable Camilo Nguyen Unavailable Astrid Reeder MD Primary Care Prov ider Unavailable Reason for Visit * Reason Comments Remote Device Check Encounter Details Date Type Department Care Team Description 03/06/2022 Remote Device Check Cardio PVC POC 154 300 [facility] [address] [place] [address] Eliseo Cortez MD [address] [place] [address] [phone] Social History Tobacco Use Types Packs/Day Years [...] suspected to have Coronavirus/COVID-19? No / Unsure 02/12/2022 10:55 AM EDT documented as of this encounter Plan of Treatment Not on file documented as of this encounter Visit Diagnoses Not on filedocumented in this encounter Care Teams Community Affairs Manager Relationship Specialty Start Date End Date Astrid Reeder MD PCP - General Internal Medicine 10/09/21 Cecy Hillman MD Specialist Cardiology 06/04/20 Camilo Nguyen PA Specialist Cardiology 06/04/20 12/19/23 documented as of this encounter
--- OUTSIDE RECORDS SUMMARY | 2025-03-15 09:04 | XMS_ITS | Encounter Summary ---
Author Organization [facility] Address [address] [facility] [place] [address] Care Team Providers Care Maintenance Controller Name Role Phone Pilar Cloud MD Primary Care Provider Cecy Hilton MD Unavailable [phone] Camilo Nguyen Unavailable Holland Cardona MD Primary Care Provider [phone] Astrid Reeder MD Primary Care Prov ider Unavailable Encounter Details Date Type Department Care Team Description 01/31/2018 Master Machinist Report Medical Records [address] [place] [address] Glenn [place] MD [address] [place], [place] 1985920 Social History Tobacco Use Types Packs/Day Years [...] on filedocumented in this encounter Care Teams Maintenance Controller Relationship Specialty Start Date End Date Pilar Cloud MD PCP - General Internal Medicine 09/03/16 01/20/21 Holland Cardona MD [address] [place] [address] PCP - General Internal Medicine 01/21/21 10/08/21 Astrid Reeder MD [address] [place] [address] PCP - General Internal Medicine 10/09/21 Cecy Hillman MD Specialist Cardiology 06/04/20 Camilo Nguyen PA Specialist Cardiology 06/04/20 12/19/23 documented as of this encounter
--- OUTSIDE RECORDS SUMMARY | 2025-03-15 09:04 | XMS_ITS | Encounter Summary ---
Author Organization [facility] Address [address] [facility] [place] [address] Care Team Providers Care Structural Steel Detailer Name Role Phone Pilar Cloud MD Primary Care Provider Cecy Hilton MD Unavailable [phone] Camilo Nguyen Unavailable Holland Cardona MD Primary Care Provider [phone] Astrid Reeder MD Primary Care Prov ider Unavailable Encounter Details Date Type Department Care Team Description 10/18/2017 Hospital Medical Records [address] [facility] [place] [address] Savannah Parekh MD [address] [facility] [address] [place] [address] Social History Tobacco Use Types Packs/Day Years [...] on filedocumented in this encounter Care Teams Structural Steel Detailer Relationship Specialty Start Date End Date Pilar Cloud MD PCP - General Internal Medicine 09/03/16 01/20/21 Holland Cardona MD [address] [place] [address] PCP - General Internal Medicine 01/21/21 10/08/21 Astrid Reeder MD [address] [place] [address] PCP - General Internal Medicine 10/09/21 Cecy Hillman MD Specialist Cardiology 06/04/20 Camilo Nguyen PA Specialist Cardiology 06/04/20 12/19/23 documented as of this encounter
--- OUTSIDE RECORDS SUMMARY | 2025-03-15 09:04 | XMS_ITS | Encounter Summary ---
Author Organization [facility] Address [address] [facility] [place] [address] Care Team Providers Care Yard Supervisor Cotton Gin Name Role Phone Pilar Cloud MD Primary Care Provider Cecy Hilton MD Unavailable [phone] Caimlo Nguyen Unavailable Holland Cardona MD Primary Care Provider [phone] Astrid Reeder MD Primary Care Prov ider Unavailable Reason for Visit * Reason Comments E-prescribe Rx Request Encounter Details Date Type Department Care Team Description 03/03/2020 Refill Adult Medicine [address] [id number] Pilar Cloud MD E-prescribe Rx Request Social [...] have Coronavirus / COVID-19? No / Unsure 02/29/2020 9:05 AM EDT documented as of this encounter Miscellaneous Notes * Telephone Encounter - Radha Barry M.A. - 03/04/2020 5:15 PM EDT Last office visit 08/28/19 pending 03/19/20 Lab Results Component Value Date NA 139 10/31/2019 K 4.2 10/31/2019 CO2 25 10/31/2019 CL 107 10/31/2019 BUN 19 10/31/2019 CREAT 1.21 10/31/2019 GLU 181 10/31/2019 CA 9.0 10/31/2019 GFR 59 10/31/2019 * Telephone Encounter - Karlene Kilpatrick - 03/03/2020 7:45 AM EDT Patient would like script to be: E-PRESCRIBED/FAXED TO PHARMACY WHEN WAS THE PATIENT'S LAST APPOINTMENT IN ADULT MEDICINE? 08/28/2019 WHEN WAS THE LAST TIME THE PATIENT SAW THEIR PCP? Same as above Does patient have an upcoming appointment? Yes 03/19/2020 (THE MEDICATION REQUESTED IS ON THE MED LIST ABOVE) All of the medications requested were on the CURRENT MEDS list Did you check the Pharmacy information above?: YES Patient wants: 30 -day supply Is this a mail order prescription request ? NO If the refill is from a FAXED refill request what is the RX # listed on the fax? N/A Patients current insurance carrier is: Payor: [place] / Plan[place] / Product Type: MEDICARE [id number] documented in this encounter Plan of Treatment Not on file documented as of this encounter Visit Diagnoses Not on filedocumented in this encounter Care Teams Yard Supervisor Cotton Gin Relationship Specialty Start Date End Date Pilar Cloud MD PCP - General Internal Medicine 09/03/16 01/20/21 Holland Cardona MD [address] [place] [address] PCP - General Internal Medicine 01/21/21 10/08/21 Astrid Reeder MD [address] [place] [address] PCP - General Internal Medicine 10/09/21 Cecy Hillman MD Specialist Cardiology 06/04/20 Camilo Nguyen PA Specialist Cardiology 06/04/20 12/19/23 documented as of this encounter
--- OUTSIDE RECORDS SUMMARY | 2025-03-15 09:04 | XMS_ITS | Encounter Summary ---
Author Organization [facility] Address [address] [facility] [place] [address] Care Team Providers Care Pest Control Service Technician Name Role Phone Pilar Cloud MD Primary Care Provider Cecy Hilton MD Unavailable [phone] Camilo Nguyen Unavailable Holland Cardona MD Primary Care Provider [phone] Astrid Reeder MD Primary Care Prov ider Unavailable Reason for Visit * Reason Comments E-prescribe Rx Request Encounter Details Date Type Department Care Team Description 03/07/2018 Refill Adult Medicine [address] [phone] Pilar Cloud MD E-prescribe Rx Request Social [...] encounter Miscellaneous Notes * Telephone Encounter - Lizz Crump M.A. - 03/08/2018 3:26 PM EDT Lab Results Component Value Date NA 145 11/24/2017 K 4.4 11/24/2017 CO2 24.2 11/24/2017 CL 107 11/24/2017 BUN 16 11/24/2017 CREAT 1.2 11/24/2017 GLU 163 11/24/2017 CA 9.9 11/24/2017 GFR > 60 11/24/2017 Pending ov with Sabine 03/14/18 * Telephone Encounter - Jeanna Jones - 03/07/2018 7:36 AM EDT Patient would like script to be: E-PRESCRIBED/FAXED TO PHARMACY WHEN WAS THE PATIENT'S LAST APPOINTMENT IN ADULT MEDICINE? 12/09/17 WHEN WAS THE LAST TIME THE PATIENT SAW THEIR PCP? Same as above Does patient have an upcoming appointment? Yes 03/14/18 (THE MEDICATION REQUESTED IS ON THE MED [...] / Plan: [place] / Product Type: MEDICARE [id number] documented in this encounter Plan of Treatment Not on file documented as of this encounter Visit Diagnoses Not on filedocumented in this encounter Care Teams Pest Control Service Technician Relationship Specialty Start Date End Date Pilar Cloud MD PCP - General Internal Medicine 09/03/16 01/20/21 Holland Cardona MD [address] [place] [address] PCP - General Internal Medicine 01/21/21 10/08/21 Astrid Reeder MD [address] [place] [address] PCP - General Internal Medicine 10/09/21 Cecy Hillman MD Specialist Cardiology 06/04/20 Camilo Nguyen PA Specialist Cardiology 06/04/20 12/19/23 documented as of this encounter
--- OUTSIDE RECORDS SUMMARY | 2025-03-15 09:04 | XMS_ITS | Encounter Summary ---
Author Organization [facility] Address [address] [place] [address] Care Team Providers Care Photographic Artist Name Role Phone Pilar Cloud MD Primary Care Provider Cecy Hilton MD Unavailable [phone] Camilo Nguyen Unavailable Holland Cardona MD Primary Care Provider [phone] Astrid Reeder MD Primary Care Prov ider Unavailable Reason for Visit * Reason Onset Date Comments Pre-visit Diabetes Lab Adult Medicine 03/06/202003/19 Encounter Details Date Type Department Care Team Description 03/06/2020 Telephone Adult Medicine [address] [place] [address] Pilar Cloud MD Pre-visit Diabetes Lab Adult Medicine (03/19) Social History Tobacco Use Types Packs/Day Years [...] have Coronavirus / COVID-19? No / Unsure 03/07/2020 1:53 PM EDT documented as of this encounter Miscellaneous Notes * Telephone Encounter - Pilar Cloud MD - 03/08/2020 11:43 AM EDT His last A1c was only 2 months ago. He has a follow up appt with his apprentice machinist outside in April. The A1c was not yet due; the patient should not have been contacted to get labs done. Would have been more helpful to get it done prior to endocrinology appt. Now it will not be covered in March. * Telephone Encounter - Estelita Starks - 03/06/2020 7:44 AM EDT Sent patient an email advising them to complete diabetic lab work at least three days prior to their upcoming appointment. documented in this encounter Plan of Treatment Not on file documented as of this encounter Results * (ABNORMAL) HEMOGLOBIN A1C (03/07/2020 1:54 PM EDT) GLYCATED HEMOGLOBIN A1C 8.7(H) <6.5 % 03/07/2020 7:20 PM EDT [facility] ESTIMATED AVERAGE GLUCOSE 203 mg/dL 03/07/2020 7:20 PM EDT [facility] 03/07/2020 1:54 PM EDT 03/07/2020 2:01 PM EDT Pilar Cloud MD LAB [facility] documented in this encounter Visit Diagnoses Diagnosis Type 2 diabetes mellitus with diabetic polyneuropathy, with long-term current use of insulin (HCC)- Primary documented in this encounter Care Teams Photographic Artist Relationship Specialty Start Date End Date Pilar Cloud MD PCP - General Internal Medicine 09/03/16 01/20/21 Holland Cardona MD [address] [place] [address] PCP - General Internal Medicine 01/21/21 10/08/21 Astrid Reeder MD [address] [place] [address] PCP - General Internal Medicine 10/09/21 Cecy Hillman MD Specialist Cardiology 06/04/20 Camilo Nguyen PA Specialist Cardiology 06/04/20 12/19/23 documented as of this encounter
--- OUTSIDE RECORDS SUMMARY | 2025-03-15 09:04 | XMS_ITS | Encounter Summary ---
Author Organization [facility] Address [address] [facility] [place] [address] Care Team Providers Care Juvenile Justice Specialist Name Role Phone Pilar Cloud MD Primary Care Provider Unava Pilar Trujillo MD Primary Care Provider Unava Cecy Aquino MD Unavailable [phone] Camilo Nguyen Unavailable Holland Cardona MD Primary Care Provider [phone] Astrid Reeder MD Primary Care Prov ider Unavailable Encounter Details Date Type Department Care Team Description 07/14/2016 Radioisotope Technician Report Medical Records [address] [place] [address] [facility] [place] [address] Abstract, Provider Social History Tobacco Use Types Packs/Day Years Used Date Smoking Tobacco: Never Assessed Alcohol Habits Answer Date Recorded How often [...] on filedocumented in this encounter Care Teams Juvenile Justice Specialist Relationship Specialty Start Date End Date Pilar Cloud MD PCP - General Internal Medicine 09/03/16 01/20/21 Pilar Cloud MD PCP - General 07/03/16 09/02/16 Holland Cardona MD [address] [place] [address] PCP - General Internal Medicine 01/21/21 10/08/21 Astrid Reeder MD [address] [place] [address] PCP - General Internal Medicine 10/09/21 Cecy Hillman MD Specialist Cardiology 06/04/20 Camilo Nguyen PA Specialist Cardiology 06/04/20 12/19/23 documented as of this encounter
--- OUTSIDE RECORDS SUMMARY | 2025-03-15 09:04 | XMS_ITS | Encounter Summary ---
Author Organization [facility] Address [address] [facility] [place] [address] Care Team Providers Care Purification Operator Name Role Phone Pilar Cloud MD Primary Care Provider Cecy Hilton MD Unavailable [phone] Camilo Nguyen Unavailable Holland Cardona MD Primary Care Provider [phone] Astrid Reeder MD Primary Care Prov ider Unavailable Encounter Details Date Type Department Care Team Description 01/10/2020 Highway Commissioner Report Medical Records [address] [facility] [place] [address] Cindy Moore MD Social History Tobacco Use [...] on filedocumented in this encounter Care Teams Purification Operator Relationship Specialty Start Date End Date Pilar Cloud MD PCP - General Internal Medicine 09/03/16 01/20/21 Holland Cardona MD [address] [place] [address] PCP - General Internal Medicine 01/21/21 10/08/21 Astrid Reeder MD [address] [place] [address] PCP - General Internal Medicine 10/09/21 Cecy Hillman MD Specialist Cardiology 06/04/20 Camilo Nguyen PA Specialist Cardiology 06/04/20 12/19/23 documented as of this encounter
--- OUTSIDE RECORDS SUMMARY | 2025-03-15 09:04 | XMS_ITS | Encounter Summary ---
Author Organization [facility] Address [address] [facility] [place] [address] Care Team Providers Care Photoengraving Supervisor Name Role Phone Pilar Cloud MD Primary Care Provider Cecy Hilton MD Unavailable [phone] Camilo Nguyen Unavailable Holland Cardona MD Primary Care Provider [phone] Astrid Reeder MD Primary Care Prov ider Unavailable Encounter Details Date Type Department Care Team Description 06/17/2018 Firearms Specialist Report Medical Records [address] [place] [address] [place] [address] [place] [address] DELBERT Social History Tobacco [...] on filedocumented in this encounter Care Teams Photoengraving Supervisor Relationship Specialty Start Date End Date Pilar Cloud MD PCP - General Internal Medicine 09/03/16 01/20/21 Holland Cardona MD [address] [place] [address] PCP - General Internal Medicine 01/21/21 10/08/21 Astrid Reeder MD [address] [place] [address] PCP - General Internal Medicine 10/09/21 Cecy Hillman MD Specialist Cardiology 06/04/20 Camilo Nguyen PA Specialist Cardiology 06/04/20 12/19/23 documented as of this encounter
--- OUTSIDE RECORDS SUMMARY | 2025-03-15 09:04 | XMS_ITS | Encounter Summary ---
Author Organization [facility] Address [address] [facility] [place] [address] Care Team Providers Care Carbonator Name Role Phone Pilar Cloud MD Primary Care Provider Cecy Hilton MD Unavailable [phone] Camilo Nguyen Unavailable Holland Cardona MD Primary Care Provider [phone] Astrid Reeder MD Primary Care Prov ider Unavailable Encounter Details Date Type Department Care Team Description 11/22/2019 Incoming Correspondence Medical Records [address] [facility] [place] [address] [facility] Social History Tobacco Use Types Packs/Day Years [...] on filedocumented in this encounter Care Teams Carbonator Relationship Specialty Start Date End Date Pilar Cloud MD PCP - General Internal Medicine 09/03/16 01/20/21 Holland Cardona MD [address] [place] [address] PCP - General Internal Medicine 01/21/21 10/08/21 Astrid Reeder MD [address] [place] [address] PCP - General Internal Medicine 10/09/21 Cecy Hillman MD Specialist Cardiology 06/04/20 Camilo Nguyen PA Specialist Cardiology 06/04/20 12/19/23 documented as of this encounter
--- OUTSIDE RECORDS SUMMARY | 2025-03-15 09:04 | XMS_ITS | Encounter Summary ---
Author Organization [facility] Address [address] [facility] [place] [address] Care Team Providers Care Emergency Medical Tech Name Role Phone Cecy Hillman MD Unavailable [phone] Camilo Nguyen Unavailable Astrid Reeder MD Primary Care Prov ider Unavailable Encounter Details Date Type Department Care Team Description 03/10/2022 Telephone Cardio PVC POC [address] [place] [address] Radha Lala PA-C [address] [place] [address] [phone] Social History Tobacco Use Types Packs/Day Years [...] suspected to have Coronavirus/COVID-19? No / Unsure 03/13/2022 2:19 PM EDT documented as of this encounter Miscellaneous Notes * Telephone Encounter - Jeannine Galicia RN - 03/12/2022 2:07 PM EDT Called pt this PM. Made aware of event on 03/05. States he does not remember anything happening andthat he is usually sleeping at that time. Is aware to get labs drawn in the next couple of days. Uses [facility]. Is aware the lab order will be in the system. * Telephone Encounter - PEE Dent - 03/12/2022 1:55 PM EDT Good afternoon. When you get a chance, could you please reach out to the patient's and let her knowthat her device recorded a single episode of nonsustained VT on March 05 at 5 AM. Please ask her if she felt any symptoms at that time of the event. Given that it was an isolated event with no therapies given, I think at this time we can continue to monitor, she is on carvedilol which is an appropriate medication, however I would like her to get blood work done to ensure her arrhythmia was not due to to an electrolyte abnormality. I will place orders in the computer and she can have these drawn over the next couple days. Thanks. Jacob?? * Telephone Encounter - Radha Lala PA-C - 03/10/2022 8:52 AM EDT Remote alert- single chamber ICD- underlying perm afib on eliquis, 24 bts VT on 03/05 at 5 am rate 180 bpm documented in this encounter Plan of Treatment Not on file documented as of this encounter Results * MAGNESIUM,SERUM (03/13/2022 2:20 PM EDT) MAGNESIUM (MG) 2.3 1.9 - 2.6 mg/dL 03/13/2022 4:28 PM EDT [facility] 03/13/2022 2:20 PM EDT 03/13/2022 2:20 PM EDT Narrative [facility] - 03/13/2022 4:28 PM EDT Release to patient->Immediate Cam[facility] [email or web address] * (ABNORMAL) BASIC METABOLIC PANEL (03/13/2022 2:20 PM EDT) GLOMERULAR FILTRATION RATE 59(L) >60 03/13/2022 4:50 PM EDT [facility] Comment: This eGFR result was calculated using the CKD-EPI 2020 Creatinine Equation Effective 2021 we have implemented the CKD-EPI 2020 formula for calculating eGFR. This formula does not use race as a factor in the calculation. Please note that a change in the eGFR between the old and new calculation does not necessarily indicate a change in kidney function in the absence of changes in creatinine or clinical condition. GLUCOSE 82 70 - 100 mg/dL 03/13/2022 4:50 PM EDT [facility] Comment:Reference range appl icable to fasting specimens only Blood Urea Nitrogen 22 5 - 25 mg/dL 03/13/2022 4:50 PM EDT [facility] CREAT 1.27 0.7 - 1.3 mg/dL 03/13/2022 4:50 PM EDT [facility] NA 140 135 - 145 mEq/L 03/13/2022 4:50 PM EDT [facility] K 4.4 3.5 - 5.5 mmol/L 03/13/2022 4:50 PM EDT [facility] CL 107 96 - 110 mmol/L 03/13/2022 4:50 PM EDT [facility] CARBON DIOXIDE (CO2) 27 21 - 32 mmol/L 03/13/2022 4:50 PM EDT [facility] ANION GAP 6 3 - 11 03/13/2022 4:51 PM EDT [facility] CALCIUM 9.4 8.5 - 10.5 mg/dL 03/13/2022 4:51 PM EDT [facility] 03/13/2022 2:20 PM EDT 03/13/2022 2:20 PM EDT Narrative [facility] - 03/13/2022 4:50 PM EDT Release to patient->Immediate Cam[facility] documented in this encounter Visit Diagnoses Diagnosis AICD (automatic cardioverter/defibrillator) present- Primary Automatic implantable cardiac defibrillator in situ NSVT (nonsustained ventricular tachycardia) (HCC) Paroxysmal ventricular tachycardia Chronic HFrEF (heart failure with reduced ejection fraction) (HCC) Type 2 diabetes mellitus with diabetic neuropathy, with long-term current use of insulin (HCC) AICD (automatic cardioverter/defibrillator) present Automatic implantable cardiac defibrillator in situ NSVT (nonsustained ventricular tachycardia) (HCC) Paroxysmal ventricular tachycardia documented in this encounter Care Teams Emergency Medical Tech Relationship Specialty Start Date End Date Astrid Reeder MD PCP - General Internal Medicine 10/09/21 Cecy Hillman MD Specialist Cardiology 06/04/20 Camilo Nguyen PA Specialist Cardiology 06/04/20 12/19/23 documented as of this encounter
--- OUTSIDE RECORDS SUMMARY | 2025-03-15 09:04 | XMS_ITS | Encounter Summary ---
Author Organization [facility] Address [address] [facility] [place] [address] Care Team Providers Care Hospital Nursing Assistant Name Role Phone Cecy Hillman MD Unavailable [phone] Camilo Nguyen Unavailable Astird Reeder MD Primary Care Prov ider Unavailable Encounter Details Date Type Department Care Team Description 10/23/2021 SCAN Medical Records [address] [place] [address] [place] [address] Abstract, Provider Social History Tobacco Use Types [...] Name Priority Date/Time Associated Diagnosis Comments OUTSIDE LAB Routine 10/23/2021 documented in this encounter Results * OUTSIDE LAB (10/23/2021) Provider Abstract LAB documented in this encounter Visit Diagnoses Not on filedocumented in this encounter Care Teams Hospital Nursing Assistant Relationship Specialty Start Date End Date Astrid Reeder MD PCP - General Internal Medicine 10/09/21 Cecy Hillman MD Specialist Cardiology 06/04/20 Camilo Nguyen PA Specialist Cardiology 06/04/20 12/19/23 documented as of this encounter
--- OUTSIDE RECORDS SUMMARY | 2025-03-15 09:04 | XMS_ITS | Encounter Summary ---
Author Organization [facility] Address [address] [facility] [place] [address] Care Team Providers Care Human Resources Specialist Name Role Phone Pilar Cloud MD Primary Care Provider Cecy Hilton MD Unavailable [phone] Camilo Nguyen Unavailable Holland Cardona MD Primary Care Provider [phone] Astrid Reeder MD Primary Care Prov ider Unavailable Reason for Visit * Reason Onset Date Comments refill request 04/01/2020 Encounter Details Date Type Department Care Team Description 04/01/2020 Refill Adult Medicine [address] [phone] Cassie Saenz PA-C [address] [place] [address] [phone] refill request Social History Tobacco Use Types Packs/Day Years [...] Telephone Encounter - Pilar Cloud MD - 04/01/2020 10:07 AM EST I just spoke with him on 03/19. OK for 6 months.. * Telephone Encounter - Giselle Esteban M.A. - 04/01/2020 9:59 AM EST MILLIE 03/19/2020 telehealth No F/U appt Lab Results Component Value Date INR 1.65 10/08/2017 Lab Results Component Value Date NA 139 10/31/2019 K 4.2 10/31/2019 CO2 25 10/31/2019 CL 107 10/31/2019 BUN 19 10/31/2019 CREAT 1.21 10/31/2019 GLU 181 10/31/2019 CA 9.0 10/31/2019 GFR 59 10/31/2019 * Telephone Encounter - Nadia Roman - 04/01/2020 9:28 AM EST Patient would like script to be: E-PRESCRIBED/FAXED TO PHARMACY WHEN WAS THE PATIENT'S LAST APPOINTMENT IN ADULT MEDICINE? 03/19/20 WHEN WAS THE LAST TIME THE PATIENT SAW THEIR PCP? Same as above Does patient have an upcoming appointment? MY CHART MESSAGE HAS BEEN ZENT TO PT (THE MEDICATION REQUESTED IS ON THE MED [...] insurance carrier is: Payor[place] / Plan: MEDICARE-[employer] / Product Type: MEDICARE [id number] documented in this encounter Plan of Treatment Not on file documented as of this encounter Visit Diagnoses Not on filedocumented in this encounter Care Teams Human Resources Specialist Relationship Specialty Start Date End Date Pilar Cloud MD PCP - General Internal Medicine 09/03/16 01/20/21 Holland Cardona MD [address] [place] [address] PCP - General Internal Medicine 01/21/21 10/08/21 Astrid Reeder MD [address] [place] [address] PCP - General Internal Medicine 10/09/21 Cecy Hillman MD Specialist Cardiology 06/04/20 Camilo Nguyen PA Specialist Cardiology 06/04/20 12/19/23 documented as of this encounter
--- OUTSIDE RECORDS SUMMARY | 2025-03-15 09:04 | XMS_ITS | Encounter Summary ---
Author Organization [facility] Address [address] [facility] [place] [address] Care Team Providers Care Schedule Analyst Name Role Phone Cecy Hillman MD Unavailable [phone] Camilo Nguyen Unavailable Holland Cardona MD Primary Care Provider [phone] Astrid Reeder MD Primary Care Prov ider Unavailable Encounter Details Date Type Department Care Team Description 09/19/2021 SCAN Medical Records [address] [facility] [place] [address] Abstract, Provider Social History Tobacco Use Types [...] Date/Time Associated Diagnosis Comments OUTSIDE LAB Routine 09/19/2021 documented in this encounter Results * OUTSIDE LAB (09/19/2021) Provider Default LAB documented in this encounter Visit Diagnoses Not on filedocumented in this encounter Care Teams Schedule Analyst Relationship Specialty Start Date End Date Holland Cardona MD [address] [place] [address] PCP - General Internal Medicine 01/21/21 10/08/21 Astrid Reeder MD [address] [place] [address] PCP - General Internal Medicine 10/09/21 Cecy Hillman MD Specialist Cardiology 06/04/20 Camilo Nguyen PA Specialist Cardiology 06/04/20 12/19/23 documented as of this encounter
--- OUTSIDE RECORDS SUMMARY | 2025-03-15 09:04 | XMS_ITS | Encounter Summary ---
Author Organization [facility] Address [address] [facility] [place] [address] Care Team Providers Care Cognos Tm1 Developer Name Role Phone Pilar Cloud MD Primary Care Provider Cecy Hilton MD Unavailable [phone] Camilo Nguyen Unavailable Holland Cardona MD Primary Care Provider [phone] Astrid Reeder MD Primary Care Prov ider Unavailable Reason for Visit * Reason Onset Date Comments Provider Call Back 07/25/2018 Encounter Details Date Type Department Care Team Description 07/25/2018 Telephone Nephrology - [place] [address] [place] [address] [phone] Glenn Lemos MD [address] [place] [address] [phone] Provider Call Back Social History Tobacco Use Types Packs/Day Years [...] encounter Miscellaneous Notes * Telephone Encounter - Merline Lloyd - 07/25/2018 12:00 PM EDT Patient stated he was suppose to have lab work that Dr. Lemos requested and a ultra sound and a appointment this coming Wednesday. I am not showing any of these. Please call him back. documented in this encounter Plan of Treatment Not on file documented as of this encounter Visit Diagnoses Not on filedocumented in this encounter Care Teams Cognos Tm1 Developer Relationship Specialty Start Date End Date Pilar Cloud MD PCP - General Internal Medicine 09/03/16 01/20/21 Holland Cardona MD [address] [place] [address] PCP - General Internal Medicine 01/21/21 10/08/21 Astrid Reeder MD [address] [place] [address] PCP - General Internal Medicine 10/09/21 Cecy Hillman MD Specialist Cardiology 06/04/20 Camilo Nguyen PA Specialist Cardiology 06/04/20 12/19/23 documented as of this encounter
--- OUTSIDE RECORDS SUMMARY | 2025-03-15 09:04 | XMS_ITS | Encounter Summary ---
Author Organization [facility] Address [address] [facility] [place] [address] Care Team Providers Care Shower Screen Installer Name Role Phone Cecy Hillman MD Unavailable Camilo Nguyen Unavailable Astrid Reeder MD Primary Care Prov ider Unavailable Reason for Visit * Reason Comments Remote Device Check Encounter Details Date Type Department Care Team Description 07/06/2022 Remote Device Check Cardio PVC POC 154 [address] [facility] [address] [place] [address] Eliseo Cortez MD [address] [place] [address] [phone] Social History Tobacco Use Types Packs/Day Years [...] on filedocumented in this encounter Care Teams Shower Screen Installer Relationship Specialty Start Date End Date Astrid Reeder MD PCP - General Internal Medicine 10/09/21 Cecy Hillman MD Specialist Cardiology 06/04/20 Camilo Nguyen PA Specialist Cardiology 06/04/20 12/19/23 documented as of this encounter
--- OUTSIDE RECORDS SUMMARY | 2025-03-15 09:04 | XMS_ITS | Encounter Summary ---
Author Organization [facility] Address [address] [facility] [place] [address] Care Team Providers Care Statistical Machine Mechanic Name Role Phone Pilar Cloud MD Primary Care Provider Cecy Hilton MD Unavailable [phone] Camilo Nguyen Unavailable Holland Cardona MD Primary Care Provider [phone] Astrid Reeder MD Primary Care Prov ider Unavailable Reason for Visit * Reason Comments E-prescribe Rx Request Encounter Details Date Type Department Care Team Description 01/31/2018 Refill Adult Medicine [address] [phone] Cassie Saenz PA-C [address] [place] [address] [phone] E-prescribe Rx Request Social History Tobacco Use [...] Telephone Encounter - Steffi Sherman M.A. - 01/31/2018 4:17 PM EDT Lab Results Component Value Date HGBA1C 7.9 11/24/2017 MALBUR 1669.3 08/04/2017 MALBCR 1464.2 08/04/2017 CHOL 122 08/04/2017 LDL 57 08/04/2017 HDL 41 08/04/2017 TRIG 121 08/04/2017 GLU 163 11/24/2017 CREAT 1.2 11/24/2017 * Telephone Encounter - Radha Lindquist - 01/31/2018 2:32 PM EDT Patient would like script to [...] / Plan[place] / Product Type: MEDICARE [id number] documented in this encounter Plan of Treatment Not on file documented as of this encounter Visit Diagnoses Not on filedocumented in this encounter Care Teams Statistical Machine Mechanic Relationship Specialty Start Date End Date Pilar Cloud MD PCP - General Internal Medicine 09/03/16 01/20/21 Holland Cardona MD [address] [place] [address] PCP - General Internal Medicine 01/21/21 10/08/21 Astrid Reeder MD [address] [place] [address] PCP - General Internal Medicine 10/09/21 Cecy Hillman MD Specialist Cardiology 06/04/20 Camilo Nguyen PA Specialist Cardiology 06/04/20 12/19/23 documented as of this encounter
--- OUTSIDE RECORDS SUMMARY | 2025-03-15 09:05 | XMS_ITS | Encounter Summary ---
Author Organization [facility] Address [address] [facility] [place] [address] Care Team Providers Care Technical Operations Vice President Name Role Phone [facility], Pcp Primary Care Provider Pilar Wheatley MD Primary Care Provider Unava ilable Pilar Cloud MD Primary Care Provider Unava ilable Cecy Hillman MD Unavailable [phone] Camilo Nguyen Unavailable Holland Cardona MD Primary Care Provider [phone] Astrid Reeder MD Primary Care Prov ider Unavailable Encounter Details Date Type Department Care Team Description 06/17/2016 Electrical Installation Inspector Report Medical Records [address] [place] [address] [place] [address] Abstract, Provider Social History Tobacco Use Types [...] on filedocumented in this encounter Care Teams Technical Operations Vice President Relationship Specialty Start Date End Date Community, Pcp PCP - General 02/06/08 07/02/16 Pilar Cloud MD PCP - General Internal Medicine 09/03/16 01/20/21 Pilar Cloud MD PCP - General 07/03/16 09/02/16 Holland Cardona MD [address] [place] [address] PCP - General Internal Medicine 01/21/21 10/08/21 Astrid Reeder MD [address] [place] [address] PCP - General Internal Medicine 10/09/21 Cecy Hillman MD Specialist Cardiology 06/04/20 Camilo Nguyen PA Specialist Cardiology 06/04/20 12/19/23 documented as of this encounter
--- OUTSIDE RECORDS SUMMARY | 2025-03-15 09:05 | XMS_ITS | Encounter Summary ---
Author Organization [facility] Address [address] [facility] [place] [address] Care Team Providers Care Marketing Planning Manager Name Role Phone Pilar Cloud MD Primary Care Provider Cecy Hilton MD Unavailable [phone] Camilo Nguyen Unavailable Holland Cardona MD Primary Care Provider [phone] Astrid Reeder MD Primary Care Prov ider Unavailable Encounter Details Date Type Department Care Team Description 09/22/2016 Transfer Records Medical Records [address] [facility] [place] [address] Abstract, Provider Social History Tobacco Use Types [...] on filedocumented in this encounter Care Teams Marketing Planning Manager Relationship Specialty Start Date End Date Pilar Cloud MD PCP - General Internal Medicine 09/03/16 01/20/21 Holland Cardona MD [address] [place] [address] PCP - General Internal Medicine 01/21/21 10/08/21 Astrid Reeder MD [address] [place] [address] PCP - General Internal Medicine 10/09/21 Cecy Hillman MD Specialist Cardiology 06/04/20 Camilo Nguyen PA Specialist Cardiology 06/04/20 12/19/23 documented as of this encounter
--- OUTSIDE RECORDS SUMMARY | 2025-03-15 09:05 | XMS_ITS | Encounter Summary ---
Author Organization [facility] Address [address] [facility] [place] [address] Care Team Providers Care Settlement Agent Name Role Phone Pilar Cloud MD Primary Care Provider Cecy Hilton MD Unavailable [phone] Camilo Nguyen Unavailable Holland Cardona MD Primary Care Provider [phone] Astrid Reeder MD Primary Care Prov ider Unavailable Reason for Visit * Reason Onset Date Comments refill request 07/28/2018 Encounter Details Date Type Department Care Team Description 07/28/2018 Refill Pulmonology - [address] [place] [address] Benedicto Rizvi MD refill request Social History Tobacco Use Types [...] encounter Miscellaneous Notes * Telephone Encounter - Benedicto Rizvi MD - 08/03/2018 4:01 PM EDT Ordered. * Telephone Encounter - Marilyn Mederos M.A. - 07/28/2018 4:55 PM EDT Plan to include the following: * Telephone Encounter - Racheal Hopkins - 07/28/2018 4:36 PM EDT Patient would like script to be: MAILED TO HOME ADDRESS WHEN WAS THE PATIENT'S LAST APPOINTMENT WITH THE PRESCRIBING PROVIDER? 07/05/18 Does patient have an upcoming appointment? Yes 08/16/18 (THE MEDICATION REQUESTED IS ON THE MED LIST ABOVE) NOT ON THE MED LIST-DR RIZVI GAVE A SAMPLE OF THIS MEDICATION AT LAST OV THE MEDICATION IS: ANORO INHALER 62.5 MCG/25 MCG ELIPTA Did you check the Pharmacy information above?: YES Patient wants: 90 -day supply Is this a mail order prescription request ? YES Patients current insurance carrier is: [place] / [place] / Product Type: MEDICARE [id number] documented in this encounter Plan of Treatment Not on file documented as of this encounter Visit Diagnoses Not on filedocumented in this encounter Care Teams Settlement Agent Relationship Specialty Start Date End Date Pilar Cloud MD PCP - General Internal Medicine 09/03/16 01/20/21 Holland Cardona MD [address] [place] [address] PCP - General Internal Medicine 01/21/21 10/08/21 Astrid Reeder MD [address] [place] [address] [place] [address] PCP - General Internal Medicine 10/09/21 Cecy Hillman MD Specialist Cardiology 06/04/20 Camilo Nguyen PA Specialist Cardiology 06/04/20 12/19/23 documented as of this encounter
--- OUTSIDE RECORDS SUMMARY | 2025-03-15 09:05 | XMS_ITS | Encounter Summary ---
Author Organization [facility] Address [address] [facility] [place] [address] Care Team Providers Care Therapist Respiratory Name Role Phone Pilar Cloud MD Primary Care Provider Cecy Hilton MD Unavailable [phone] Camilo Nguyen Unavailable Holland Cardona MD Primary Care Provider [phone] Astrid Reeder MD Primary Care Prov ider Unavailable Reason for Visit * Reason Comments E-prescribe Rx Request Encounter Details Date Type Department Care Team Description 08/06/2018 Refill Adult Medicine [address] [id number] Pilar Cloud MD E-prescribe Rx Request Social [...] Telephone Encounter - Rachel Matamoros M.A. - 08/08/2018 1:53 PM EDT Lab Results Component Value Date NA 142 07/28/2018 K 4.0 07/28/2018 CO2 27 07/28/2018 CL 105 07/28/2018 BUN 17 07/28/2018 CREAT 1.23 07/28/2018 GLU 158 06/07/2018 CA 9.0 07/28/2018 GFR 58 07/28/2018 * Telephone Encounter - Tyesha Manuel - 08/08/2018 10:02 AM EDT Patient would like script to be: E-PRESCRIBED/FAXED TO PHARMACY WHEN WAS THE PATIENT'S LAST APPOINTMENT IN ADULT MEDICINE? 06/14/18 WHEN WAS THE LAST TIME THE PATIENT SAW THEIR PCP? 12/09/17 Does patient have an upcoming appointment? Yes 08/09/18 (THE MEDICATION REQUESTED IS ON THE MED [...] / Plan[place] / Product Type: MEDICARE [id number] documented in this encounter Plan of Treatment Not on file documented as of this encounter Visit Diagnoses Not on filedocumented in this encounter Care Teams Therapist Respiratory Relationship Specialty Start Date End Date Pilar Cloud MD PCP - General Internal Medicine 09/03/16 01/20/21 Holland Cardona MD [address] [place] [address] PCP - General Internal Medicine 01/21/21 10/08/21 Astrid Reeder MD [address] [place] [address] PCP - General Internal Medicine 10/09/21 Cecy Hillman MD Specialist Cardiology 06/04/20 Camilo Nguyen PA Specialist Cardiology 06/04/20 12/19/23 documented as of this encounter
--- OUTSIDE RECORDS SUMMARY | 2025-03-15 09:05 | XMS_ITS | Clinical Summary ---
Author Organization [facility] Address [address] [place] [address] Care Team Providers Care Director Special Education Name Role Phone Astrid Reeder MD Primary [...] age to complete this topic Care Teams Director Special Education Relationship Specialty Start Date End Date Astrid Reeder MD [address] [place] [phone] PCP - General Family Medicine 10/23/21
--- OUTSIDE RECORDS SUMMARY | 2025-03-15 09:05 | XMS_ITS | Clinical Summary ---
Author Organization [address] [place] [address] [place] [address] Phone Care Team Providers Care Philanthropy Officer Name Role Phone Arlene Reeder MD Primary [...] Problem Noted Date Diagnosed Date Polycythemia vera ([facility] V24, [facility] V28) 02/2025 Acquired hammer toe of left foot 01/17/2025 Acquired hammer toe of right foot 01/17/2025 Contact with and (suspected) exposure to other hazardous substances 01/17/2025 Dizziness 10/20/2024 Assessment & Plan (10/20/2024 11:50 AM EDT): Likely related to hypotensive readings at home. However for completeness I am going to update a carotid ultrasound bilaterally. Morbid obesity ([facility] V24, [facility] V28) 2024 Obstructive sleep apnea 10/17/2024 Coronary artery disease invo lving coronary bypass graft of green[place] heart with angina pectoris ([facility] V24) 03/15/2024 Overview (03/15/2024): -Status post CABG 4 at [facility] in 1996 -Pharmacologic nuclear stress test from 07/18/2014 showed a large, moderate anteroseptal wall and apical infarct without ischemia that is unchanged from 2009 - Recent hospitalization for heart failure exacerbation in February 2024 at [facility] during which time he had minimally elevated high-sensitivity troponins which were likely demand mediated and not primary event - Cardiac cath on 02/15/2024 showed severe three-vessel greenville disease and left main disease; ZHANG to [...] does start having tachycardia therapies. Aortic ectasia ([facility] V24) 12/23/2023 Overview (02/23/2024): -See echo under [...] Xarelto and carvedilol. Patient has an elevated [id number] score for heart failure, PVD, age, diabetes. Patient should remain anticoagulated. Assessment & Plan (04/27/2024 8:26 AM EST): Patient on beta-reuben, anticoagulated with Eliquis. Patient has a [id number]-[id number] score of 6 he should remain anticoagulated. [...] (automatic cardioverter/defibrillator) pres ent 11/05/2016 Overview (04/27/2024): -Listar device-generator change in October 2017 Assessment & Plan (10/20/2024 11:45 AM EDT): Continue with device checks. Assessment & Plan (04/27/2024 8:26 AM EST): Most recent device interrogation did not should deliver any shocks. Assessment & Plan (03/15/2024 4:55 PM EST): Continue device clinic follow-up. Unfortunately, his device does not have remote tracking of thoracic impedance as it predated thoracic impedance monitoring on [employer] devices. Adenomatous colon polyp 11/04/2016 Overview [...] of ejection fraction after a major anterior ND with persistent infarction by nuclear imaging even after revascularization -Status post AICD placement with a [employer] device for primary prevention -Most recently [...] However his echo was repeated during his [facility] hospitalization on 02/11/2024 and showed reduction [...] is leaving that he is going to [place] to visit family. I asked him to be very cautious about his sodium intake and weigh himself every day while in [place]. I still believe he is quite tenuous and he is still awaiting callback from advanced heart failure treatment and transplant at [facility]. Continue current Entresto, carvedilol, Jardiance. I hesitate to increase spironolactone to the full dose because of high normal potassium on most recent basic metabolic panel. COPD (chronic obstructive pu lmonary disease) ([facility] V24, [facility] V28) 09/03/2016 Intra-abdominal varices Hypertension Assessment [...] Description 02/13/2025 2:15 PM EDT Ancillary Procedure [facility] [address] [place] [address] 01/31/2025 8:30 AM EDT Ancillary Procedure [facility] - [address] [place] [address] Chronic HFrEF (heart failure with reduced ejection fraction) ([facility] V24, [facility] V28) 01/17/2025 10:30 AM EDT Office Visit Pulmonology - [place] [address] [place] [phone] Linda Paulino MD Pulmonary emphysema, unspecified emphysema type ([facility] V24, [facility] V28) (Primary Dx); Obstructive sleep apnea; Chronic a-fib ([facility] V24, [facility] V28); Morbid obesity ([facility] V24, [facility] V28) 01/16/2025 1:30 PM EDT Ancillary Procedure [facility] Cardiology [facility] - [address] [place] [address] Encounter for adjustment or management of cardiac [...] Comments COPD (chronic obstructive pu lmonary disease) ([facility] V24, [facility] V28) 09/03/2016 DX:COPD (chronic o bstructive pulmonary disease) ([facility]) Hypertension 11/04/2016 DX:Hypertension CAD (coronary artery [...] 2 with peripheral vascular complications (HCC) Old ND (myocardial infarction) 11/09/2016 D X:Old ND (myocardial infarction) DARYA on CPAP 11/04/2016 DX:DARYA [...] Description 04/18/2025 10:20 AM EST Office Visit [facility] - [address] [place] [phone] Cecy Hillman MD [address] [place] [address] [place] [phone] 04/19/2025 10:00 AM EST Office Visit Pulmonology - [place] [address] [place] [phone] Linda Paulnio MD [address] [place] [address] 08/14/2025 9:30 AM EDT Office Visit [facility] Hematology Oncology [address] [place] [phone] Cindy Moore MD [address] [place] [address] 01/17/2026 1:30 PM EDT Ancillary Procedure [facility] - [address] [facility] [address] [place] [address] Health Maintenance Due Date Last [...] this topic Medical Devices Implanted Type Area Billing And Accounting Staff Assistant Device Identifier Shelf Expiration Date Model / Serial / Lot Bsci-Crm [id number] Implanted:10/08 (Quantity not on file) Cardiac ICD [employer]HY[employer] MGMT [id number] / [id number] / Procedures Procedure Name Priority Date/Time Associated [...] 2:14 PM EDT) Date Time Interrogation Session [id number] CV DEVICE CHECK Type Interrogation Session Remote Scheduled CV DEVICE CHECK Implantable Pulse Generator Billing And Accounting Staff Assistant BSX CV DEVICE CHECK Implantable Pulse Generator Type ICD CV DEVICE CHECK Implantable Pulse Generator Model D151 CV DEVICE CHECK Implantable Pulse Generator Serial Number [id number] CV DEVICE CHECK Implantable Pulse Generator Implant [...] (01/31/2025 10:14 AM EDT) Left Atrium Minor [place] 5.9 cm CV PACS Left Atrium Major [place] 6.5 cm CV PACS [place] Area Sys [...] Volume 64 mL CV PACS MV Deceleration [place] 6.2 m/s2 CV PACS E Wave Deceleration [...] Result * CARDIAC DEVICE CHECK- IN CL[facility]- [facility] (01/16/2025 2:06 PM EDT) Date Time Interrogation Session [id number] CV DEVICE CHECK Implantable Pulse Generator Billing And Accounting Staff Assistant BSX CV DEVICE CHECK Implantable Pulse Generator Type ICD CV DEVICE CHECK Implantable Pulse Generator Model D151 CV DEVICE CHECK Implantable Pulse Generator Serial Number [id number] CV DEVICE CHECK Implantable Pulse Generator Implant [...] mmol/L LAB CHEMISTRY METHOD 08/16/2024 2:42 PM [facility] Potassium 4.8 3.5 - 5.5 mmol/L LAB CHEMISTRY METHOD 08/16/2024 2:42 PM [facility] Chloride 108 96 - 110 mmol/L LAB CHEMISTRY METHOD 08/16/2024 2:42 PM [facility] CO2 24 21 - 32 mmol/L LAB CHEMISTRY METHOD 08/16/2024 2:42 PM [facility] Anion Gap 7 3 - 11 LAB CHEMISTRY METHOD 08/16/2024 2:42 PM [facility] Glucose 90 70 - 100 mg/dL LAB CHEMISTRY METHOD 08/16/2024 2:42 PM T [facility] BUN 14 5 - 25 mg/dL LAB CHEMISTRY METHOD 08/16/2024 2:42 PM EDT [facility] Creatinine 1.16 0.70 - 1.30 mg/dL LAB CHEMISTRY METHOD 08/16/2024 2:42 PM EDT [facility] eGFR 65 >=60 mL/min/1. 73m2 LAB CHEMISTRY METHOD 08/16/2024 2:42 PM EDT [facility] Comment:Calculation based on the Chronic Kidney Disease Epidemiology Collaboration (CKD-EPI) equation refit without adjustment for race. BUN/Creatinine Ratio 12.1 LAB CHEMISTRY METHOD 08/16/2024 2:42 PM EDT [facility] Calcium 9.5 8.5 - 10.5 mg/dL LAB CHEMISTRY METHOD 08/16/2024 2:42 PM EDT [facility] Blood Venous blood specimen / Unknown Venipuncture / Unknown 08/16/2024 12:44 PM EDT 08/16/2024 1:37 PM EDT Eugene Schumacher NP LAB BLOOD ORDERABLES Final Resul t [facility] [address] [place] [address], * Urine Albumin Creatinine Ratio (03/13/2022) Pathologist [facility] Urine Albumin Creatinine Ratio abstracted Historical Provider HEALTH MAINTENANCE Final Result * (ABNORMAL) Hemoglobin A1c (03/13/2022) Pathologist [facility] Hemoglobin A1C 6.8(A) <=6.5 % Blood Venous blood specimen / Unknown Historical Provider LAB BLOOD ORDERABLES Alejandra l Result * Lipid panel (03/13/2022) Pathologist [facility] LDL/HDL Ratio 3 0 - [...] Recently Relevant to Health Maintenance Insurance MEDICARE [facility] Care Teams Philanthropy Officer Relationship Specialty Start Date End Date Arlene Reeder MD [address] [place], [place] PCP - General Internal Medicine 10/09/21
--- OUTSIDE RECORDS SUMMARY | 2025-03-15 09:05 | XMS_ITS | Encounter Summary ---
Author Organization [facility] Address [address] [facility] [place] [address] Care Team Providers Care Receptionist Doctor'S Office Name Role Phone Pilar Cloud MD Primary Care Provider UnaPilar Dennis MD Primary Care Provider Unava Cecy Aquino MD Unavailable [phone] Camilo Nguyen Unavailable Holland Cardona MD Primary Care Provider [phone] Astrid Reeder MD Primary Care Prov ider Unavailable Encounter Details Date Type Department Care Team Description 07/04/2016 Hospital Medical Records [address] [place] [address] Cecy Hillman MD [address] [place] [address] [id number] Social History Tobacco Use Types Packs/Day Years [...] on filedocumented in this encounter Care Teams Receptionist Doctor'S Office Relationship Specialty Start Date End Date Pilar Cloud MD PCP - General Internal Medicine 09/03/16 01/20/21 Pilar Cloud MD PCP - General 07/03/16 09/02/16 Holland Cardona MD [address] [place] [address] PCP - General Internal Medicine 01/21/21 10/08/21 Astrid Reeder MD [address] [place] [address] PCP - General Internal Medicine 10/09/21 Cecy Hillman MD Specialist Cardiology 06/04/20 Camilo Nguyen PA Specialist Cardiology 06/04/20 12/19/23 documented as of this encounter
--- OUTSIDE RECORDS SUMMARY | 2025-03-15 09:05 | XMS_ITS | Patient Health Record ---
Author Organization [facility] Address [address] [facility] [place] [address] Care Team Providers Care Medicare Nurse Name Role Phone Kirill Hurst MD, [facility] Primary Care Provi kamlesh Unavailable Good Hudson Unavailable [phone] Allergies No Known Allergies Results Component Value [...] Problem Acquired hammer toe of right foot (56183234197494 05) Other hammer toe(s) (acquired), right foot (M20.41) Active confirmed Response to treatment,I mprovement Problem Acquired hammer toe of left foot (81765153225489 03) Other hammer toe(s) (acquired), left foot (M20.42) Active confirmed Response to treatment,I mprovement Problem Peripheral circulatory disorder associated with type 1 diabetes mellitus (943705686) Type 1 diabetes mellitus with diabetic peripheral angiopathy without gangrene (E10.51) Active confirmed Q7(A), Q8(2B), Q9(1B,2C) Vital Signs Blood pressure diastolic 65 mm Hg 01/02/2025 Height 5 ft 8 in in 01/02/2025 Blood pressure systolic 128 mm Hg 01/02/2025 Weight 204 lbs 01/02/2025 BMI 31.01 kg/m2 01/02/2025 Procedures Procedure Date Ordered Date Performed Result Body Sit e 14327-DTARUNR NAIL, 6 OR MORE 03/21/2024 N/A 35123-JSBQ SKIN LESIONS, OVER 4 03/21/2024 N/A 11257-KEMGPNJ NAIL, 6 OR MORE 06/20/2024 N/A 07185-NNZP SKIN LESIONS, OVER 4 06/20/2024 N/A 70340-YHUKYJV NAIL, 6 OR MORE 09/22/2024 N/A 49520-KYVJ SKIN LESIONS, OVER 4 09/22/2024 N/A 42898-ISKSZPP NAIL, 6 OR MORE 01/02/2025 N/A 99451-EAZD SKIN LESIONS, OVER 4 01/02/2025 N/A Encounters Encounter Location Date Provider Diagnosis [address] [address] 03/21/2024 Good Becca Type 1 diabetes mellitus with diabetic peripheral angiopathy without gangrene E10.51 ; Onychomycosis B35.1 ; Pain of toe of right foot M79.674 ; Pain of toe of left foot M79.675 ; Other hammer toe(s) (acquired), right foot M20.41 and Other hammer toe(s) (acquired), left foot M20.[address] [address] 06/20/2024 Good Becca Type 1 diabetes mellitus with diabetic peripheral angiopathy without gangrene E10.51 ; Onychomycosis B35.1 ; Pain of toe of right foot M79.674 and Pain of toe of left foot M79.[address] [address] 09/22/2024 Goodtha Hudson Type 1 diabetes mellitus with diabetic peripheral angiopathy without gangrene E10.51 ; Onychomycosis B35.1 ; Pain of toe of right foot M79.674 and Pain of toe of left foot M79.[address] [address] 01/02/2025 Good Becca Type 1 diabetes mellitus [...] Treatment Pending Test Test Name Order Date 75869-OKESOGL NAIL, 6 OR MORE 12/17/2017 45167-SKYDKUC NAIL, 6 OR MORE 03/18/2018 70082-OAIRBRC NAIL, 6 OR MORE 06/17/2018 09539-OXCNXXF NAIL, 6 OR MORE 09/13/2018 22970-CUDGAEA NAIL, 6 OR MORE 12/13/2018 79371-NIXRFCS NAIL, 6 OR MORE 03/21/2019 16072-XISVJKI NAIL, 6 OR MORE 06/23/2019 33904-IBORUOB NAIL, 6 OR MORE 09/29/2019 47178-RTDHBBU NAIL, 6 OR MORE 12/29/2019 23627-TIALFDD NAIL, 6 OR MORE 03/26/2020 17931-MPMXULF NAIL, 6 OR MORE 07/02/2020 63934-KAAUWBO NAIL, 6 OR MORE 09/24/2020 87540-CPMGHRF NAIL, 6 OR MORE 12/24/2020 57688-FBRVRYR NAIL, 6 OR MORE 03/28/2021 98260-ZPAZSZH NAIL, 6 OR MORE 06/27/2021 94548-ZQZIKHE NAIL, 6 OR MORE 09/30/2021 08925-FYIRBSP NAIL, 6 OR MORE 12/16/2021 88769-HHEORLR NAIL, 6 OR MORE 03/17/2022 08467-SERBLAS NAIL, 6 OR MORE 06/16/2022 05816-RKZLPJO NAIL, 6 OR MORE 09/15/2022 46512-MRBZHWX NAIL, 6 OR MORE 12/15/2022 01624-GEEATMN NAIL, 6 OR MORE 03/16/2023 47419-YJZDJHO NAIL, 6 OR MORE 06/18/2023 52309-FYPHLZQ NAIL, 6 OR MORE 09/21/2023 15132-HOHOKPW NAIL, 6 OR MORE 12/21/2023 00774-OYQWGTY NAIL, 6 OR MORE 03/21/2024 06989-CZDQXAY NAIL, 6 OR MORE 06/20/2024 54245-DSNEULW NAIL, 6 OR MORE 09/22/2024 26781-ZKVINEG NAIL, 6 OR MORE 01/02/2025 17990-OMOTOJW NAIL, 1-5 08/24/2017 66658-IXDNJLZ NAIL, 1-5 11/24/2016 76423-MTYHMLF NAIL, 1-5 02/23/2017 94919-DGCQRLY NAIL, 1-5 05/25/2017 62752-MJLR SKIN LESIONS, OVER 4 11/25/19 17 32161-JWJA SKIN LESIONS, OVER 4 02/24/20 17 55307-FKYN SKIN LESIONS, OVER 4 05/25/19 18 27836-LDYR SKIN LESIONS, OVER 4 08/25/19 18 72096-TFYJ SKIN LESIONS, OVER 4 06/17/19 19 51031-ONEP SKIN LESIONS, OVER 4 03/18/20 18 21942-LIDT SKIN LESIONS, OVER 4 09/25/19 21 55362-MKTW SKIN LESIONS, OVER 4 07/02/19 21 13707-MGSB SKIN LESIONS, OVER 4 03/26/20 20 40459-HGUO SKIN LESIONS, OVER 4 12/29/19 20 46125-CLJO SKIN LESIONS, OVER 4 06/23/19 20 52851-NDRU SKIN LESIONS, OVER 4 09/29/19 20 19275-CFNA SKIN LESIONS, OVER 4 03/21/20 19 36879-AMWG SKIN LESIONS, OVER 4 12/14/19 19 27016-SSWJ SKIN LESIONS, OVER 4 09/14/19 19 20431-KQDO SKIN LESIONS, OVER 4 09/23/19 25 53356-NDDP SKIN LESIONS, OVER 4 06/20/19 25 29459-BOUE SKIN LESIONS, OVER 4 03/21/20 24 43340-JHVI SKIN LESIONS, OVER 4 12/21/19 24 09706-JHGX SKIN LESIONS, OVER 4 09/21/19 24 20540-QTCY SKIN LESIONS, OVER 4 06/18/19 24 58189-HQDE SKIN LESIONS, OVER 4 03/16/20 23 04307-VUJJ SKIN LESIONS, OVER 4 12/16/19 23 03980-BJDH SKIN LESIONS, OVER 4 05/09/20 23 27923-KAPJ SKIN LESIONS, OVER 4 06/16/19 23 52279-WUFT SKIN LESIONS, OVER 4 03/17/20 22 87456-MVIT SKIN LESIONS, OVER 4 12/17/19 22 16765-WKCE SKIN LESIONS, OVER 4 10/01/19 22 73343-KRTY SKIN LESIONS, OVER 4 06/27/19 22 93992-GXBA SKIN LESIONS, OVER 4 03/28/20 21 50529-XMWC SKIN LESIONS, OVER 4 12/25/19 21 08991-NRMF SKIN LESIONS, OVER 4 01/03/20 25 89121-GJEH SKIN LESIONS, OVER 4 12/18/19 18 L9950-PZHCMGRK DYSTROPHIC NAILS ANY # X7967-FGVHSAJN DYSTROPHIC NAILS ANY # G6175-FDQEYTBM DYSTROPHIC NAILS ANY # P4776-KOJUQDEQ DYSTROPHIC NAILS ANY # Next Appt Details Provider Name:Good Hudson , 04/13/2025 09:30:00 AM, [address] [place], [address], Insurance Providers Payer Name Payer Address Payer Phone Subscriber Number Group Number Insured Name Patient Relationship to Insured Coverage Start Date Coverage End Date Medicare [facility] [address] [facility] [address] [id number] Dom Sheikh Self - patient is the insured for Life [address] [place] [phone] [id number] Dom Sheikh Self - patient is the [...]
--- OUTSIDE RECORDS SUMMARY | 2025-03-15 09:05 | XMS_ITS | Encounter Summary ---
Author Organization [facility] Address [address] [facility] [place] [address] Care Team Providers Care Hand Collator Name Role Phone Pilar Cloud MD Primary Care Provider Cecy Hilton MD Unavailable [phone] Camilo Nguyen Unavailable Holland Cardona MD Primary Care Provider [phone] Astrid Reeder MD Primary Care Prov ider Unavailable Encounter Details Date Type Department Care Team Description 08/01/2018 Fiber Optic Central Office Installer Report Medical Records [address] [place] [address] Glenn Lemos MD [address] [place], [place] [phone] Social History Tobacco Use Types Packs/Day Years [...] on filedocumented in this encounter Care Teams Hand Collator Relationship Specialty Start Date End Date Pilar Cloud MD PCP - General Internal Medicine 09/03/16 01/20/21 Holland Cardona MD [address] [place] [address] PCP - General Internal Medicine 01/21/21 10/08/21 Astrid Reeder MD [address] [place] [address] PCP - General Internal Medicine 10/09/21 Cecy Hillman MD Specialist Cardiology 06/04/20 Camilo Nguyen PA Specialist Cardiology 06/04/20 12/19/23 documented as of this encounter
[2025-03-15 10:36] LABS: Uric Acid 3.8 mg/dL (3.4-7.0)
== END 2025-03-15 08:35 | disposition home or self-care (01) ==
LOC: HO.HMGCLDS 08:34
PROVIDERS: PCP Family Medicine; Visit Provider Physician Assistant Medical
DX: M79.89 Other specified soft tissue disorders (principal)
CPT/HCPCS: 36415; 84550

== ENCOUNTER 2025-03-23 08:51 | Outpatient (REF) | payer MEDICARE, OTHER, SELFPAY ==
--- NOTE | ~2025-03-23 | XR_ITS ---
EXAMINATION: XR KNEE, RIGHT CLINICAL INFORMATION: W19.XXXA - Unspecified fall, initial encounter COMPARISON: None available. TECHNIQUE: Four views of the right knee. FINDINGS: No fracture or joint effusion. Alignment is anatomic. Joint spaces are maintained. No abnormal soft tissue calcification. Vascular calcifications. XR/XR knee RT 4V IMPRESSION: No radiographic evidence of acute findings Electronically signed by: Emiliano Fry MD 03/23/2025 09:34 AM SHAHRIAR
--- OUTSIDE RECORDS SUMMARY | 2025-03-23 10:00 | XMS_ITS | Data Portability ---
Author Organization [place] - [facility], Allergy Address [address] [place] [id number] Care Team Providers Care High Voltage Electrician Name Role Phone PADMAJA COLLINS Primary Care [...] Organization Details Recorded Time Bleeding from nose 204763133 Active 2022 Epistaxis ; Note: Date Diagnosed : 05/14/2022 12:05 PM (R04.0) Not Available [facility] 4 02:18:09 Long-term current use of anticoagu lant 266446165 Active 2022 continuous churn buttermaker (current) use of anticoagu lants; Note: Date Diagnosed : 02/13/2015 8:40 AM (Z79.01) Not Available [facility] 4 02:17:45 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 111024055 Active 2022 Coagulati on defects: Other hemorrhag ic disorder due to intrinsic circulati ng anticoagu lants, antibodie s, or inhibitor s; Note: Date Diagnosed : 02/13/2015 8:41 AM () Not Available [facility] 4 02:17:48 Epistaxis Active 2022 Epistaxis ; Note: Date Diagnosed : 02/13/2015 8:41 AM () Not Available [facility] 4 02:17:55 Long-term current use of antiplate let drug 70896870866 4101 Active 2022 halfway (current) use of antithrom botics/an tiplatele ts; Note: Date Diagnosed : 11/27/2016 12:51 PM (Z79.02) Not Available [facility] 4 02:17:51 Anterior epistaxis 969142572 Active 2024 NALINI WILSON PA-C [address] [place] [address], [place], [address] , [facility] 21:00:16 Problem Notes None recorded. Procedures Surgical History Date Name Laterality Status Provider Name and Address Organization Details Recorded Time Epistaxis Simple Nasal Cautery Left completed NALINI WILSON PA-C [address] [facility] [address], [place], [address], [facility] - [facility] 05/11/2024 09:53:00 extraction of wisdom tooth completed Gloria Mello [facility] 05/11/2024 08:48:25 Imaging Results None recorded. Procedure [...] mg tablet 05/11 completed Medicati on ID: [id number] D uration Value: 90 Brand Name: glimepir [...] mg tablet 05/11 completed Medicati on ID: [id number] B rand Name: Entresto Send Method: E-Prescr [...] Updated DateTime 05/26/2024 175.26 cm 30.9 kg/m2 76813.81 g Prachi Villalobos [place] - [facility] 05/26/2024 09:09:21 Social History None recorded. Functional Status None recorded. Mental Status None recorded. Family History Nothing Reported. Medical History Condition Response Allergies/Hayfever N Heart Problems Y Anxiety N Tonsil Infections N Emphysema N Migraines N Thyroid Problems N Glaucoma Y Developmental Delay N Depression N COPD Y Nasal or Sinus Problems N Anemia N Immune System Disorder N Anesthesia Complications N Heart Attack ([place]) Y Other Skin Condition N Diabetes Y Rhinitis N Bleeding Disorder N Food Allergy N Hearing Loss Y Arthritis Y Hyperlipidemia N Cancer N Stroke N Dementia N Nasal polyps N Asthma N Sleep Disorder Y High Cholesterol Y GERD/Reflux N Liver Disease N Headaches N Fibromyalgia N Hypertension Y Speech Delay N Kidney Disease N Past Encounters Encounter ID Performer Location Encounter Start Date Encounter Closed Date Diagnosis/Indication Diagnosis SNOMED-CT Code Diagnosis ICD10 Code Diagnosis IMO Codes Diagnosis Note [id number] NALINI WILSON PA-C [facility] [address] [place] [address] 05/11/2024 08:46:34 05/11/2024 09:48:01 Bleeding from nose 191269269 R04.0 recurrent left anterior epistaxis Long-term current use of anticoagulant 687042960 Z79.01 Long-term current use of antiplatelet drug 5294496989 89911 Z79.02 [id number] NALINI WILSON PA-C [facility] [address] [place] [address] 05/26/2024 09:00:48 05/26/2024 09:16:44 Long-term current use of anticoagulant 332771308 Z79.01 Long-term current use of antiplatelet drug 7319976946 06808 Z79.02 Anterior epistaxis 93714 4002 R04.0 left, resolved Health Concerns Section Related Observation LastModified by Organization Detai ls LastModified Time None Recorded Concern Status LastModified by Organization Details LastModified Time None Recorded Advance Directives Directive None Recorded Payers Insurance Date Sequence Insurance Name Policy Number Policy Kim Covered Member ID Kim Member ID Guarantor Name 06/21/2024 2 FOR LIFE ( - MEDICARE SUPPLEMENT) Dom Mosqueda Kori [id number] Dom Mosqueda Kori 05/11/2024 1 [place]ICARE [place]: [employer] [facility] Dom Sheikh [id number] Dom Mosqueda Sheikh 05/25/2024 2 FOR LIFE () Dom Mosqueda Kori [id number] Dom Mosqueda Kori 05/26/2024 1 [place] [employer] Dom Sheikh [id number] Dom Mosqueda Sheikh 05/11/2024 2 FOR LIFE ( - MEDICARE SUPPLEMENT) Dom Mosqueda Kori [id number] Dom Mosqueda Kori Notes Date Note Type Note Provider Name and Address Organization Details Recorded Time 05/11/2024 text/html ROS as noted in the [facility] 79-year-old male with DARYA and [...] from acute URI. KERRI ARAUZ MD [address] [facility],[place] [address], [place], [address], [place] - [facility] 05/11/2024 17:40:37 05/26/2024 text/html ROS as noted in the [facility] 79-year-old with history of recurrent left epistaxis and CHF on Eliquis and Aspirin presents for reevaluation of left epistaxis. He denies epistaxis since cautery two weeks ago. He has been recovering from a common cold and endorses frequent nose blowing. He has been using daily nasal saline. EKRRI ARAUZ MD [address] [facility],[place] [address], [place], [address], [place] - [facility] 05/30/2024 08:02:55
== END 2025-03-23 08:52 | disposition home or self-care (01) ==
LOC: HO.HMGCX 08:51
PROVIDERS: PCP Family Medicine; Visit Provider Physician Assistant
DX: S80.01XA Contusion of right knee, initial encounter (principal); W01.0XXA Fall on same level from slipping, tripping and stumbling without subsequent striking against object, initial encounter
CPT/HCPCS: 73564; 99212

== ENCOUNTER 2025-03-23 08:51 | Outpatient (AMB) | payer MEDICARE, OTHER, SELFPAY ==
[2025-03-23 08:58] VITALS: BP 90/52; PULSE 66; TEMP 36.2; O2SAT 100; BMI 29.8
--- NOTE | 2025-03-23 08:58 | AM.OFFWIN_ITS ---
Intake Vital Signs 03/23/25 08:58 03/23/25 09:06 Height 5 ft 8 in Weight 196 lb BMI 29.8 BP 90/52 L 100/54 L Blood Pressure Location Lt brachial Lt brachial Position Sitting Sitting Pulse 66 Pulse Source Pulse Oximeter Temp 97.2 F Temp Source Oral Pulse Oximetry (%) 100 Oxygen Delivery Method Room Air Comment Low BP: pt states he didn't take meds today. provider notified Intake Visit Reasons: pain rt knee Intake Note: pt presents with RT knee pain, swelling and bruising after falling 2 days ago- states his feet got caught somehow Patient Tobacco Use Status: Never used Tobacco Allergies No Known Allergies Allergy (Verified 03/23/25 08:59) Do you need a note to return to daycare/school/sports/work: No HPI HPI Comments History of Present Illness Details History of Present Illness - The patient is a 80-year-old male pres enting with knee pain following a fall 2 days ago. - The fall occurred on Wednesday morning at approximately 8:30 AM when the patient tripped over his own feet. - The patient denies dizziness, lighthea dedness, chest pain, or loss of consciousness at the time or prior to the fall. - The patient hit his head during the fa ll but reports no headache, dizziness, nausea, vomiting or changes in vision following the incident. - The right knee is extremely sore with a large bruise and significant swelling - The patient does not normally use a ca ne but is currently using one to assist with ambulation due to the knee pain. Review of Systems - Neurological: Denies headache, dizzine ss, or changes in vision. - Musculoskeletal: Reports severe right knee pain and swelling. - General: Denies nausea or vomiting. All systems reviewed and are unremarkable except as noted in HPI Physical Exam General: Cooperative, healthy appearing, comfortable, no acute distress and well developed Orientation: Patient oriented x3 Limitations: ambulating gingerly with cane Head: Normal to inspection, no headache or dizziness reported Ears: Hearing aids not present, hearing grossly normal bilaterally Nose: Normal External nose present Face and sinus: Normal facial exam, 1cm oblong scab on central forehead, no warmth or drainage noted. No erythema. Eyes: Appearance normal, both eyes and all related structures, no changes in vision Neck: Normal visual inspection and Yes full ROM Respiratory: Normal respiratory effort and able to speak in complete sentences. Skin: No rashes or lesions noted Neuro: Patient oriented x3 Extremities: Right knee with edema, cannot full flex or extend due to pain, TTP throughout the knee, difficult to do an exam at this time. 2cm area of ecchymosis on lateral knee. right knee normal appearing. [facility] Medical History (Updated 03/23/25 @ 09:44 by Marilee Rivas PA-C) Right knee pain Fall as cause of accidental injury at home as place of occurrence Social History Patient Tobacco Use Status: Never used Tobacco Physical Exam Vital Signs: Last Vital Signs Temp 97.2 F 03/23/25 08:58 Pulse 66 03/23/25 08:58 BP 100/54 L 03/23/25 09:06 Pulse Ox 100 03/23/25 08:58 Oxygen Delivery Method Room Air 03/23/25 08:58 BMI result Body Mass Index 29.8 Assessment & Plan Assessment & Plan (1) Fall as cause of accidental injury at home as place of occurrence: Code(s): W19.XXXA - Unspecified fall, initial encounter; Y92.009 - Unspecified place in unspecified non-institutional (private) residence as the place of occurrence of the external cause Qualifiers: Encounter type: initial encounter Qualified Code(s): W19.XXXA - Unspecified fall, initial encounter; Y92.009 - Unspecified place in unspecified non-institutional (private) residence as the place of occurrence of the external cause Plan: Plan Patient was informed and verbally consented to the use of an ambient scribe for clinic note documentation during this visit. - Obtained an x-ray of the right knee to assess for fractures or other injuries. - My interpretation is no acute effusion, fracture or dislocation. - Gave patient a knee brace, he has a walker at home and a cane for additional support. - Advised RICE, ensuring he does ROM daily. - Monitor for any delayed symptoms such as headache, dizziness, or changes in vision. - Wean off brace and follow up with PCP if no improvement in pain over coming weeks. (2) Right knee pain: Code(s): M25.561 - Pain in right knee Qualifiers: Chronicity: acute Qualified Code(s): M25.561 - Pain in right knee Plan: as above Orders: Orders XR knee RT 4V Today M25.561 - Pain in right knee, W19.XXXA - Unspecified fall, initial encounter, Y92.009 - Unspecified place in unspecified non-institutional (private) residence as the place of occurrence of the external cause Coding Level of Care Code New Pt Level 4 (21511) Diagnoses Fall as cause of accidental injury in home as place of occurrence, initial encounter W19.XXXA; Y92.009 Encounter type: initial encounter Acute pain of right knee M25.561 Chronicity: acute
[2025-03-23 09:06] VITALS: BP 100/54
--- OUTSIDE RECORDS SUMMARY | 2025-03-23 09:16 | XMS_ITS | Clinical Summary ---
Author Organization [address] [place] [address] [place] [phone] Phone Care Team Providers Care Wireline Supervisor Name Role Phone Arlene Reeder MD Primary [...] Problem Noted Date Diagnosed Date Polycythemia vera ([facility] V24, [facility] V28) 02/2025 Acquired hammer toe of left foot 01/17/2025 Acquired hammer toe of right foot 01/17/2025 Contact with and (suspected) exposure to other hazardous substances 01/17/2025 Dizziness 10/20/2024 Assessment & Plan (10/20/2024 11:50 AM EDT): Likely related to hypotensive readings at home. However for completeness I am going to update a carotid ultrasound bilaterally. Morbid obesity ([facility] V24, [facility] V28) 2024 Obstructive sleep apnea 10/17/2024 Coronary artery disease invo lving coronary bypass graft of shosh[place]-paiute heart with angina pectoris ([facility] V24) 03/15/2024 Overview (03/15/2024): -Status post CABG 4 at [facility] in 1996 -Pharmacologic nuclear stress test from 07/18/2014 showed a large, moderate anteroseptal wall and apical infarct without ischemia that is unchanged from 2009 - Recent hospitalization for heart failure exacerbation in February 2024 at [facility] during which time he had minimally elevated high-sensitivity troponins which were likely demand mediated and not primary event - Cardiac cath on 02/15/2024 showed severe three-vessel shoshone-paiute disease and left main disease; ZHANG to [...] does start having tachycardia therapies. Aortic ectasia ([facility] V24) 12/23/2023 Overview (02/23/2024): -See echo under [...] Xarelto and carvedilol. Patient has an elevated BHN4YF8-LOFr score for heart failure, PVD, age, diabetes. Patient should remain anticoagulated. Assessment & Plan (04/27/2024 8:26 AM EST): Patient on beta-reuben, anticoagulated with Eliquis. Patient has a BQO0OD8-XJWc score of 6 he should remain anticoagulated. [...] (automatic cardioverter/defibrillator) pres ent 11/05/2016 Overview (04/27/2024): -[employer] device-generator change in October 2017 Assessment & Plan (10/20/2024 11:45 AM EDT): Continue with device checks. Assessment & Plan (04/27/2024 8:26 AM EST): Most recent device interrogation did not should deliver any shocks. Assessment & Plan (03/15/2024 4:55 PM EST): Continue device clinic follow-up. Unfortunately, his device does not have remote tracking of thoracic impedance as it predated thoracic impedance monitoring on [employer] devices. Adenomatous colon polyp 11/04/2016 Overview [...] of ejection fraction after a major anterior CT with persistent infarction by nuclear imaging even after revascularization -Status post AICD placement with a [employer] device for primary prevention -Most recently [...] However his echo was repeated during his [facility] hospitalization on 02/11/2024 and showed reduction in [...] advanced heart failure treatment and transplant at [facility]. Continue current Entresto, carvedilol, Jardiance. I hesitate to increase spironolactone to the full dose because of high normal potassium on most recent basic metabolic panel. COPD (chronic obstructive pu lmonary disease) ([facility] V24, [facility] V28) 09/03/2016 Intra-abdominal varices Hypertension Assessment [...] 02/13/2025 2:15 PM EDT Ancillary Procedure [facility] Cardiology [facility] [address] [place] [address] 01/31/2025 8:30 AM EDT Ancillary Procedure [facility] [address] [place] [address] Chronic HFrEF (heart failure with reduced ejection fraction) ([facility] V24, [facility] V28) 01/17/2025 10:30 AM EDT Office Visit Pulmonology - [place] [address] [place] [phone] Linda Paulino MD Pulmonary emphysema, unspecified emphysema type ([facility] V24, [facility] V28) (Primary Dx); Obstructive sleep apnea; Chronic a-fib ([facility] V24, [facility] V28); Morbid obesity ([facility] V24, [facility] V28) 01/16/2025 1:30 PM EDT Ancillary Procedure [facility] Cardiology [facility] [address] [place] [address] Encounter for adjustment or management of cardiac [...] Comments COPD (chronic obstructive pu lmonary disease) ([facility] V24, [facility] V28) 09/03/2016 DX:COPD (chronic o bstructive pulmonary disease) ([facility]) Hypertension 11/04/2016 DX:Hypertension CAD (coronary artery [...] 2 with peripheral vascular complications (HCC) Old CT (myocardial infarction) 11/09/2016 D X:Old CT (myocardial infarction) DARYA on CPAP 11/04/2016 DX:DARYA [...] 04/18/2025 10:20 AM EST Office Visit [facility] [address] [place] [phone] Cecy Hillman MD [address] [place] [address] [place] [phone] 04/19/2025 10:00 AM EST Office Visit Pulmonology - [place] [address] [place] [phone] Linda Paulino MD [address] [place] [address] 08/14/2025 9:30 AM EDT Office Visit [facility] Hematology Oncology [address] [place] [phone] Cindy Moore MD [address] [place] [address] 01/17/2026 1:30 PM EDT Ancillary Procedure [facility] [address] [facility] [address] [facility] [address] [place] [address] Health Maintenance Due Date Last [...] this topic Medical Devices Implanted Type Area Estimator And Drafter Device Identifier Shelf Expiration Date Model / Serial / Lot Bsci-Crm [id number] Implanted:10/08 (Quantity not on file) Cardiac ICD [employer] RHY[employer]M MGMT D151 / [id number] / Procedures Procedure Name Priority Date/Time Associated [...] 2:14 PM EDT) Date Time Interrogation Session [id number] CV DEVICE CHECK Type Interrogation Session Remote Scheduled CV DEVICE CHECK Implantable Pulse Generator Estimator And Drafter BSX CV DEVICE CHECK Implantable Pulse Generator Type ICD CV DEVICE CHECK Implantable Pulse Generator Model D151 CV DEVICE CHECK Implantable Pulse Generator Serial Number [id number] CV DEVICE CHECK Implantable Pulse Generator Implant [...] (01/31/2025 10:14 AM EDT) Left Atrium Minor [place] 5.9 cm CV PACS Left Atrium Major [place] 6.5 cm CV PACS LA Area Sys [...] Volume 64 mL CV PACS MV Deceleration Alexander 6.2 m/s2 CV PACS E Wave Deceleration [...] Result * CARDIAC DEVICE CHECK- IN CLINIC- [facility] (01/16/2025 2:06 PM EDT) Date Time Interrogation Session [id number] CV DEVICE CHECK Implantable Pulse Generator Estimator And Drafter BSX CV DEVICE CHECK Implantable Pulse Generator Type ICD CV DEVICE CHECK Implantable Pulse Generator Model D151 CV DEVICE CHECK Implantable Pulse Generator Serial Number [id number] CV DEVICE CHECK Implantable Pulse Generator Implant [...] mmol/L LAB CHEMISTRY METHOD 08/16/2024 2:42 PM [facility] Potassium 4.8 3.5 - 5.5 mmol/L LAB CHEMISTRY METHOD 08/16/2024 2:42 PM [facility] Chloride 108 96 - 110 mmol/L LAB CHEMISTRY METHOD 08/16/2024 2:42 PM [facility] CO2 24 21 - 32 mmol/L LAB CHEMISTRY METHOD 08/16/2024 2:42 PM [facility] Anion Gap 7 3 - 11 LAB CHEMISTRY METHOD 08/16/2024 2:42 PM [facility] Glucose 90 70 - 100 mg/dL LAB CHEMISTRY METHOD 08/16/2024 2:42 PM T [facility] BUN 14 5 - 25 mg/dL LAB CHEMISTRY METHOD 08/16/2024 2:42 PM EDT [facility] Creatinine 1.16 0.70 - 1.30 mg/dL LAB CHEMISTRY METHOD 08/16/2024 2:42 PM EDT [facility] eGFR 65 >=60 mL/min/1. 73m2 LAB CHEMISTRY METHOD 08/16/2024 2:42 PM EDT [facility] Comment:Calculation based on the Chronic Kidney Disease Epidemiology Collaboration (CKD-EPI) equation refit without adjustment for race. BUN/Creatinine Ratio 12.1 LAB CHEMISTRY METHOD 08/16/2024 2:42 PM EDT [facility] Calcium 9.5 8.5 - 10.5 mg/dL LAB CHEMISTRY METHOD 08/16/2024 2:42 PM EDT [facility] Blood Venous blood specimen / Unknown Venipuncture / Unknown 08/16/2024 12:44 PM EDT 08/16/2024 1:37 PM EDT Eugene Schumacher NP LAB BLOOD ORDERABLES Final Resul t [facility] [address] [place] [address], * Urine Albumin Creatinine Ratio (03/13/2022) Pathologist [facility] Urine Albumin Creatinine Ratio abstracted Historical Provider HEALTH MAINTENANCE Final Result * (ABNORMAL) Hemoglobin A1c (03/13/2022) Pathologist [facility] Hemoglobin A1C 6.8(A) <=6.5 % Blood Venous blood specimen / Unknown Historical Provider LAB BLOOD ORDERABLES Alejandra l Result * Lipid panel (03/13/2022) Pathologist [facility] LDL/HDL Ratio 3 0 - 4 Triglycerides [...] Recently Relevant to Health Maintenance Insurance MEDICARE [facility] Care Teams Wireline Supervisor Relationship Specialty Start Date End Date Arlene Reeder MD [address] [place], [place] PCP - General Internal Medicine 10/09/21
--- OUTSIDE RECORDS SUMMARY | 2025-03-23 09:16 | XMS_ITS | Clinical Summary ---
Author Organization [facility] Address [address] [place] [address] Care Team Providers Care Marine Operations Coordinator Name Role Phone Astrid Reeder MD Primary [...] age to complete this topic Care Teams Marine Operations Coordinator Relationship Specialty Start Date End Date Astrid Reeder MD [address] [place] [phone] PCP - General Family Medicine 10/23/21
--- OUTSIDE RECORDS SUMMARY | 2025-03-23 09:16 | XMS_ITS | Patient Health Record ---
Author Organization [facility] Address [address] [place] [address] Care Team Providers Care Business Partner Name Role Phone Kirill Hurst MD, [facility] Primary Care Provi kamlesh Unavailable [facility] Unavailable [phone] Allergies No Known Allergies Results Component Value [...] Problem Acquired hammer toe of right foot (89663168777075 05) Other hammer toe(s) (acquired), right foot (M20.41) Active confirmed Response to treatment,I mprovement Problem Acquired hammer toe of left foot (08002925065216 03) Other hammer toe(s) (acquired), left foot (M20.42) Active confirmed Response to treatment,I mprovement Problem Peripheral circulatory disorder associated with type 1 diabetes mellitus (314555489) Type 1 diabetes mellitus with diabetic peripheral angiopathy without gangrene (E10.51) Active confirmed Q7(A), Q8(2B), Q9(1B,2C) Vital Signs Blood pressure diastolic 65 mm Hg 01/02/2025 Height 5 ft 8 in in 01/02/2025 Blood pressure systolic 128 mm Hg 01/02/2025 Weight 204 lbs 01/02/2025 BMI 31.01 kg/m2 01/02/2025 Procedures Procedure Date Ordered Date Performed Result Body Sit e 00276-ZNDZJEM NAIL, 6 OR MORE 06/20/2024 N/A 41788-MLQW SKIN LESIONS, OVER 4 06/20/2024 N/A 57192-NEKJLDL NAIL, 6 OR MORE 09/22/2024 N/A 51536-CVBI SKIN LESIONS, OVER 4 09/22/2024 N/A 94926-VSNKKEK NAIL, 6 OR MORE 01/02/2025 N/A 05464-OMIB SKIN LESIONS, OVER 4 01/02/2025 N/A Encounters Encounter Location Date Provider Diagnosis [address] [address] 06/20/2024 Good Becca Type 1 diabetes mellitus with diabetic peripheral angiopathy without gangrene E10.51 ; Onychomycosis B35.1 ; Pain of toe of right foot M79.674 and Pain of toe of left foot M79.[address] [address] 09/22/2024 Goodtha RodriguezBecca Type 1 diabetes mellitus with diabetic peripheral angiopathy without gangrene E10.51 ; Onychomycosis B35.1 ; Pain of toe of right foot M79.674 and Pain of toe of left foot M79.[address] [address] 01/02/2025 Good Rodriguezunier Type 1 diabetes mellitus with diabetic peripheral angiopathy without gangrene E10.51 ; Onychomycosis B35.1 ; Pain of toe of right foot M79.674 ; Pain of toe of left foot M79.675 ; Other hammer toe(s) (acquired), right foot M20.41 and Other hammer toe(s) (acquired), left foot M20.42 Assessments Encounter Date Diagnosis (ICD Code) Assessment Notes Treatment Notes Treatment Clinical Notes Section Notes 06/20/2024 Type 1 diabetes mellitus with diabetic [...] - M79.674) 09/22/2024 Pain of toe of left foot (ICD-10 - M79.675) 06/20/2024 Pain of toe of left foot (ICD-10 - M79.675) 01/02/2025 Pain of toe of left foot (ICD-10 - M79.675) 01/02/2025 Other hammer toe(s) (acquired), right foot (ICD-10 - M20.41) Patient Educated with: DIABETIC FOOT CARE INSTRUCTIONS.p df (DIABETIC FOOT CARE INSTRUCTIONS.p df) 01/02/2025 Other hammer toe(s) (acquired), left foot (ICD-10 - M20.42) 06/20/2024 Other 09/22/2024 Other Plan Of Treatment Pending Test Test Name Order Date 87986-YYYYSBL NAIL, 6 OR MORE 12/17/2017 78337-GOPAJEU NAIL, 6 OR MORE 03/18/2018 89555-FDCBJIZ NAIL, 6 OR MORE 06/17/2018 40393-JMZZUFO NAIL, 6 OR MORE 09/13/2018 82686-QUZIIRG NAIL, 6 OR MORE 12/13/2018 24921-QIAYFGN NAIL, 6 OR MORE 03/21/2019 13367-NQZEQPL NAIL, 6 OR MORE 06/23/2019 32522-PUAYSFM NAIL, 6 OR MORE 09/29/2019 86529-MRQMNZA NAIL, 6 OR MORE 12/29/2019 17647-VYFURQN NAIL, 6 OR MORE 03/26/2020 22903-LIDYFRB NAIL, 6 OR MORE 07/02/2020 29065-LGPBRRE NAIL, 6 OR MORE 09/24/2020 28614-QQPTPDQ NAIL, 6 OR MORE 12/24/2020 21162-HLWYQLV NAIL, 6 OR MORE 03/28/2021 24382-EWLZGVU NAIL, 6 OR MORE 06/27/2021 90656-XKKNYMC NAIL, 6 OR MORE 09/30/2021 73836-NFMYEPX NAIL, 6 OR MORE 12/16/2021 71917-UGEGYRR NAIL, 6 OR MORE 03/17/2022 31929-FDNUNHN NAIL, 6 OR MORE 06/16/2022 21741-SXKRUIS NAIL, 6 OR MORE 09/15/2022 44217-IYQFQCF NAIL, 6 OR MORE 12/15/2022 47991-DURBKES NAIL, 6 OR MORE 03/16/2023 18101-HSUPYQH NAIL, 6 OR MORE 06/18/2023 96812-WVQAHZB NAIL, 6 OR MORE 09/21/2023 55393-XUPEVHR NAIL, 6 OR MORE 12/21/2023 41718-NVRABBQ NAIL, 6 OR MORE 03/21/2024 00383-UWKUZMD NAIL, 6 OR MORE 06/20/2024 87121-WROBZJE NAIL, 6 OR MORE 09/22/2024 55640-EGEUYLW NAIL, 6 OR MORE 01/02/2025 22990-PXRRGLP NAIL, 1-5 08/24/2017 39575-MZWUYOF NAIL, 1-5 11/24/2016 04449-YSPDPZR NAIL, 1-5 02/23/2017 55571-MFWAJSL NAIL, 1-5 05/25/2017 96312-CNCV SKIN LESIONS, OVER 4 11/25/19 17 45467-BLRB SKIN LESIONS, OVER 4 02/24/20 17 85059-BFDA SKIN LESIONS, OVER 4 05/25/19 18 65098-OHXF SKIN LESIONS, OVER 4 08/25/19 18 69734-LMWX SKIN LESIONS, OVER 4 06/17/19 19 62627-ZKIK SKIN LESIONS, OVER 4 03/18/20 18 75160-FEXG SKIN LESIONS, OVER 4 09/25/19 21 76799-WXPH SKIN LESIONS, OVER 4 07/02/19 21 08532-DHHG SKIN LESIONS, OVER 4 03/26/20 20 22779-KRHM SKIN LESIONS, OVER 4 12/29/19 20 00511-WSBK SKIN LESIONS, OVER 4 06/23/19 20 31504-DKWT SKIN LESIONS, OVER 4 09/29/19 20 72448-IBQR SKIN LESIONS, OVER 4 03/21/20 19 14436-FORW SKIN LESIONS, OVER 4 12/14/19 19 95862-FCSG SKIN LESIONS, OVER 4 09/14/19 19 20292-IYDF SKIN LESIONS, OVER 4 09/23/19 25 19994-IZUD SKIN LESIONS, OVER 4 06/20/19 25 69664-ANTM SKIN LESIONS, OVER 4 03/21/20 24 86990-SUPK SKIN LESIONS, OVER 4 12/21/19 24 91261-JHCK SKIN LESIONS, OVER 4 09/21/19 24 12972-PDTI SKIN LESIONS, OVER 4 06/18/19 24 88830-QGTU SKIN LESIONS, OVER 4 03/16/20 23 77157-IKQC SKIN LESIONS, OVER 4 12/16/19 02790-MWIB SKIN LESIONS, OVER 4 09/16/19 23 64483-LOMG SKIN LESIONS, OVER 4 06/16/19 23 07644-RQFN SKIN LESIONS, OVER 4 03/17/20 22 07675-WYYP SKIN LESIONS, OVER 4 12/17/19 22 33096-IQFC SKIN LESIONS, OVER 4 10/01/19 22 55921-UDMV SKIN LESIONS, OVER 4 06/27/19 22 55119-HYFK SKIN LESIONS, OVER 4 03/28/20 21 00792-BOWO SKIN LESIONS, OVER 4 12/25/19 21 01239-LLDG SKIN LESIONS, OVER 4 01/03/20 25 37645-USVD SKIN LESIONS, OVER 4 12/18/19 18 G1580-CYDSMXXU DYSTROPHIC NAILS ANY # L0857-DKQQQNRU DYSTROPHIC NAILS ANY # O8467-QBNJFTBW DYSTROPHIC NAILS ANY # N4171-RBSVKIMC DYSTROPHIC NAILS ANY # Next Appt Details Provider Name:Good Mely [place] , 04/13/2025 09:30:00 AM, [address] [facility], [place], [address], Insurance Providers Payer Name Payer Address Payer Phone Subscriber Number Group Number Insured Name Patient Relationship to Insured Coverage Start Date Coverage End Date Medicare National [facility] [employer] [address] [place] [address] [phone] [id number] Dom Sheikh Self - patient is the insured [employer] [address] [place] [address] [phone] [id number] Dom Sheikh Self - patient is the [...]
== END 2025-03-23 09:51 | disposition home or self-care (01) ==
PROVIDERS: PCP Family Medicine; Visit Provider Physician Assistant
DX: M25.561 Pain in right knee (principal); W19.XXXA Unspecified fall, initial encounter; Y92.009 Unspecified place in unspecified non-institutional (private) residence as the place of occurrence of the external cause

== ENCOUNTER → 2025-03-23 09:20 | Outpatient (BNV) | payer MEDICARE, OTHER, SELFPAY | PROVIDERS: PCP Family Medicine; Visit Provider Radiology Diagnostic Ultrasound | DX: Z04.3 Encounter for examination and observation following other accident (principal) | CPT/HCPCS: 73564 ==